=== PATIENT | male | born 1955 | race Caucasian/White ===

== ENCOUNTER → 2017-03-04 | Outpatient (CLI) | payer OTHER ==
[~2017-03-04] MED LIST: AGG PO; HYDR50TA3 PO; LISI40TA PO; OXYC-57 PO; PREG1CAP28 PO; PRLSR20 PO; SERT-234 PO; VALS320T PO
--- NOTE | 2017-03-04 10:13 | DIAGNOSTIC IMAGING REPORT ---
BILATERAL CAROTID DOPPLER STUDY HISTORY: Cerebral infarction. COMPARISON: None. TECHNIQUE: Real-time, grayscale, and color Doppler sonography of the carotid arteries was performed. Imaging reviewed in the transverse and longitudinal planes. All measurements were calculated based on NASCET criteria. FINDINGS: Antegrade flow is seen in the bilateral vertebral arteries. The brachial pressures are hemodynamically similar. No significant atherosclerotic plaque. The peak systolic velocity within the right ICA is 60 cm/s. The right systolic ratio is 1.2. The peak systolic velocity within the left ICA is 78 cm/s. The left systolic ratio is 1.5. IMPRESSION: No hemodynamically significant stenosis seen within the carotid arteries. Electronically signed by: Mack Walden M.D. 03/04/2017 10:12 AM Dictated Date/Time: 03/04/2017 10:07 AM
--- NOTE | 2017-03-09 13:26 | CODING QUERY MEDICAL NECESSITY ---
SUPPORTING DIAGNOSIS NEEDED A supporting diagnosis is required for the test/procedure performed on this patient in order for us to be reimbursed by the patient's insurance. Please provide a supporting diagnosis for the following test/procedure listed below next to the test name along with your signature. *If there is no additional diagnosis for this patient that would support the following test/procedure please document that below next to the test/procedure. Test(s)/Procedure(s) that require a supporting diagnosis: * US CAROTID DOPPLER NECK ARTERY DIAGNOSIS: Provider Signature: Date: Thank you Leilani Toth [employer] Information Management Once completed, please kindly fax back to [phone] For questions please call [phone]
== END | disposition home or self-care (01) ==
LOC: C.ULTR 09:28
PROVIDERS: ATTEND Physician Assistant
DX: I63.30 Cerebral infarction due to thrombosis of unspecified cerebral artery (principal)

== ENCOUNTER → 2017-07-08 | Outpatient (CLI) | payer OTHER ==
[~2017-07-08] VITALS: Ht 165.1 cm; Wt 233.8 kg
[2017-07-08 10:25] VITALS: BP 149/89; PULSE 60; Ht 165.1 cm; Wt 233.8 kg
== END | disposition home or self-care (01) ==
LOC: C.NEUR 09:52
PROVIDERS: ATTEND Internal Medicine Pulmonary Disease
DX: G47.33 Obstructive sleep apnea (adult) (pediatric) (principal)

== ENCOUNTER 2023-10-20 19:06 | Inpatient (IN) ==
--- NOTE | 2023-10-20 19:21 | Emergency Department Note ---
Impression & Plan Generalized weakness, Acute hypokalemia, Hypomagnesemia, Nausea & vomiting, Non-ST elevation [place] (NSTEMI) ED Provider Note HISTORY OF PRESENT ILLNESS: Patient is a 68-year-old male presenting with nausea and vomiting. reports that patient was last seen well at 10 PM on 10/19/2023. She reports that patient has been in bed all day vomiting and having episodes of diarrhea. She reports she went back into check on him this evening and he seemed to have a slight right-sided facial droop. However, she called 911 because of the facial droop and the patient's confusion and persistent symptoms. Patient reports generalized abdominal pain that started today. He had a fever of 101 earlier this afternoon and was given Tylenol by his . Patient denies any chest pain or shortness of breath. He is on a blood thinner for previous history of a stroke but they are unsure what the name of the blood thinner is. He started vomiting black-colored vomitus, per the reports he just tried to drink some Coca-Cola to help settle his stomach. Patient denies any history of surgeries on his abdomen. Currently locates the pain diffusely across his abdomen. ROS: as above PHYSICAL EXAM: Constitutional: Patient appears in no acute distress. HENT: Head: Normocephalic and atraumatic. Eyes: EOMI, PERRL Mouth/Throat: Mucous membranes dry. Neck: Trachea midline. Neck supple. Cardiovascular: Tachycardic with regular rhythm. No murmurs, rubs or gallops. Intact distal pulses. Pulmonary/Chest: No respiratory distress. Breath sounds clear and equal bilaterally. No wheezes or rales. Abdominal: Abdomen soft, no rebound or guarding. RUQ TTP Musculoskeletal: No edema, tenderness or deformity noted. Skin: Warm and dry. No rash, erythema, pallor or cyanosis Psychiatric: Appropriate mood and affect for situation. Neurological: Alert and keenly responsive. Facies symmetric. Able to raise eyebrows, close eyes, smile, puff mouth, stick out tongue, move tongue left and right and raise palate symmetrically. Able to shrug shoulders. PERRLA. SILT to forehead below eye and at jawline. Can hear soft noise bilaterally. Strength 5/5 in bilateral upper and lower extremities. SILT throughout bilateral upper and lower extremities. MDM: - Vitals signs showed tachycardia. - History obtained via patient. History as above. - Chronic conditions affecting care: AAA; CVA; HTN; GERD - Differential diagnoses include, but are not limited to: Viral syndrome; ACS; UTI; pneumonia; dehydration; electrolyte abnormality; peptic ulcer - Order placed for continuous cardiac monitoring. At this time, monitor showed rate of 95 bpm with normal sinus rhythm, per my interpretation. - External medical records reviewed. [facility] report dated was reviewed. Patient follows in their clinic for iron deficiency with weight loss and heme positive stool. - EKG interpreted by myself showed normal sinus rhythm. Rate 100 bpm. QT 384. Noted to have a bifascicular block. No acute ischemic changes. When compared to EKG from November 09, 2021, the patient did not have a bifascicular block at that time. - Laboratory workup interpreted by myself showed normal WBC; hypokalemia (K 2.5); elevated anion gap (17 - likely from volume loss); elevated BUN (37); CKD (Cr 1.69); hypomagnesemia (Mg 1.4); elevated total bilirubin (1.6); elevated troponin (42.2) - Patient given 20 mEq IV potassium for electrolyte replacement. Given 1g IV magnesium - CXR negative for pneumonia, per my interpretation - Given 1L NS, 4 mg IV zofran and 20 mg IV protonix. - Viral respiratory panel negative - CT head wo contrast negative for acute pathology - CT abdomen/pelvis with IV contrast showed moderately fluid distended stomach with fluid filling the small hiatal hernia and distal thoracic esophagus of unclear significance. No evidence of bowel obstruction. Noted to have a aneurysm of the abdominal aorta. - Repeat troponin elevated at 128.5 - Discussed case with yard hostler, Dr. Knott, at 22:55, given patient's new EKG changes and rising troponin. Patient is not having any symptoms of chest pain. He believes that the ST changes are more likely related to LVH but cannot be sure. He states the patient is not having any chest pain, would recommend trending troponin, repeating EKGs with any change in symptoms and repeating the echocardiogram in the emergency department. Recommend holding off on heparin at this time. - Patient not alerted as a stroke, as no appreciable strokelike symptoms on arrival. Also is outside of the window for TNK, given his last known well was yesterday evening - Discussion was had with case management coordinator about patient's case and need for admission - Hospitalist, Dr. Rosenberg, consulted for admission - [facility] ASSESSMENT AND PLAN: Diagnosis: Generalized weakness; nausea and vomiting; acute hypokalemia; hypomagnesemia; NSTEMI Plan: Admit Past Med/Surg History Problem List (Updated 10/20/23 @ 23:15 by Madelaine Hou MD) Non-ST elevation [place] (NSTEMI) (Acute) Nausea & vomiting (Acute) Hypomagnesemia (Acute) Acute hypokalemia (Acute) Generalized weakness (Acute) Microscopic hematuria Medical History AAA (abdominal aortic aneurysm) CVA (cerebral vascular accident) H/O: HTN (hypertension) GERD (gastroesophageal reflux disease) Surgical History No pertinent past surgical history Family History Other Family history non-contributory Social History Smoking Status: Never smoker Tobacco Type: Cigars Preferred Language: Romanian Feels Safe at Home: Yes Allergies Allergies Allergy/AdvReac Type Severity Reaction Status Date / Time No Known Allergies Allergy Verified 11/09/21 16:20 Home Meds Home Medications Medication Instructions Recorded Confirmed aspirin 25 mg-dipyridamole 200 mg 1 cap PO BID 01/05/20 11/09/21 capsule,ext.release 12 hr multiphase escitalopram oxalate 10 mg tablet 15 mg PO DAILY 01/05/20 11/09/21 hydrochlorothiazide 50 mg tablet 50 mg PO DAILY 01/05/20 11/09/21 hydrocodone 10 mg-acetaminophen 1 tab PO QID PRN Pain 01/05/20 11/09/21 325 mg tablet omeprazole 20 mg capsule,delayed 20 mg PO BID 01/05/20 11/09/21 release potassium chloride 10 mEq 10 meq PO DAILY 01/05/20 11/09/21 tablet,extended release ropinirole 2 mg tablet 2 mg PO DAILY 01/05/20 11/09/21 rosuvastatin 40 mg tablet 40 mg PO DAILY 01/05/20 11/09/21 valsartan 320 mg tablet 320 mg PO DAILY 01/05/20 11/09/21 testosterone cypionate 200 mg/mL 200 mg IM WK 11/09/21 11/09/21 intramuscular oil Previous Rx's Medication Instructions Recorded cephalexin 500 mg capsule 500 mg PO BID 7 days #14 caps 07/09/23 Results & Data (ED) Vital Signs Vital Signs - 24 hr 10/20/23 19:12 10/20/23 19:20 10/20/23 21:45 Temperature 37.2 C Temperature Source Oral Pulse Rate 105 H 104 H Pulse Rate [Apical] 100 H Pulse Rhythm [Apical] Regular Pulse Strength [Apical] Normal Respiratory Rate 18 20 Respiratory Effort / Characteristics Non-Labored Non-Labored Respiratory Depth Normal Normal Respiratory Pattern Regular Regular Blood Pressure 105/73 Blood Pressure [Right Arm] 133/84 Blood Pressure Mean 83 Blood Pressure Mean [Right Arm] 100 Blood Pressure Position Lying Blood Pressure Position [Right Arm] Lying Pulse Oximetry 93 96 Oxygen Delivery Method Room Air Room Air Sepsis Recent Fever Within 48 Hours Yes Sepsis New/Unexplained Change in Mental Status No Sepsis Action Taken by Nursing No Action Required 10/20/23 22:00 10/20/23 23:06 Temperature Temperature Source Pulse Rate 95 H Pulse Rate [Apical] 98 H Pulse Rhythm [Apical] Regular Pulse Strength [Apical] Normal Respiratory Rate 22 Respiratory Effort / Characteristics Non-Labored Respiratory Depth Normal Respiratory Pattern Regular Blood Pressure Blood Pressure [Right Arm] 108/61 Blood Pressure Mean Blood Pressure Mean [Right Arm] 76 Blood Pressure Position Blood Pressure Position [Right Arm] Lying Pulse Oximetry 94 Oxygen Delivery Method Room Air Sepsis Recent Fever Within 48 Hours Sepsis New/Unexplained Change in Mental Status Sepsis Action Taken by Nursing Laboratory Data 10/20/23 19:00 10/20/23 19:00 Lab Results 10/20/23 10/20/23 10/20/23 Range/Units 19:00 19:20 21:42 WBC 5.78 (4.8-10.8) K/ul RBC 5.56 (4.70-6.10) M/uL Hgb 16.5 (14.0-18.0) g/dl Hct 46.3 (42.0-52.0) % MCV 83.3 (80.0-100.0) fL MCH 29.7 (25.0-34.0) pg MCHC 35.6 (32.0-36.0) g/dL RDW Std Deviation 39.9 (36.4-46.3) fL RDW Coeff of Zander 13.2 (11.5-14.5) % Plt Count 124 L (130-400) K/uL MPV 9.5 (9.4-12.4) fL Immature Gran % (Auto) 0.2 % Neut % (Auto) 85.4 % Lymph % (Auto) 8.3 % [place] % (Auto) 5.2 % Eos % (Auto) 0.2 % Baso % (Auto) 0.7 % Neut # (Auto) 4.94 (1.40-6.50) K/uL Lymph # (Auto) 0.48 L (1.20-3.40) K/uL [place] # (Auto) 0.30 (0.11-0.59) K/uL Eos # (Auto) 0.01 (0.00-0.50) K/uL Baso # (Auto) 0.04 (0.00-0.20) K/uL Immature Gran # (Auto) 0.01 (0.01-0.20) K/uL PT 11.9 (9.0-12.0) Seconds INR 1.1 (0.9-1.1) Sodium 138 (136-145) mmol/L Potassium 2.5 L* (3.5-5.1) mmol/L Chloride 105 (98-107) mmol/L Carbon Dioxide 16 L (21-32) mmol/L Anion Gap 17 H (3-11) BUN 37 H (6-23) mg/dl Creatinine 1.69 H (0.6-1.4) mg/dl Est Cr Clr Drug Dosing Not Reportable Est GFR ( Amer) 47.0 ml/min Est GFR (Non-Af Amer) 40.5 ml/min BUN/Creatinine Ratio 21.9 H (10-20) Glucose 161 H (70-99(Fasting)) mg/dl Calcium 9.9 (8.6-10.3) mg/dl Magnesium 1.4 L (1.7-2.4) mg/dl Total Bilirubin 1.6 H (0.2-1.0) mg/dl AST 18 (13-39) U/L ALT 15 (7-52) U/L Alkaline Phosphatase 68 (34-104) U/L Troponin I High Sens 42.2 H 128.5 H* D (0-20) pg/ml Total Protein 8.0 (6.0-8.3) gm/dl Albumin 4.8 (3.4-5.0) gm/dl Globulin 3.2 (2.5-4.0) gm/dl Albumin/Globulin Ratio 1.5 (0.9-2) Adenovirus (PCR) Not Detected (NotDetected) B. pertussis DNA (PCR) Not Detected (NotDetected) B.parapertussis DNA PCR Not Detected (NotDetected) C. pneumoniae DNA (PCR) Not Detected (NotDetected) Coronavirus OC43 (PCR) Not Detected (NotDetected) Coronavirus HKU1 (PCR) Not Detected (NotDetected) Coronavirus 229E (PCR) Not Detected (NotDetected) SARS-CoV-2 (PCR) Not Detected (NotDetected) Coronavirus NL63 (PCR) Not Detected (NotDetected) Human Metapneumovir PCR Not Detected (NotDetected) Influenza Type A (PCR) Not Detected (NotDetected) Influenza Type B (PCR) Not Detected (NotDetected) M. pneumoniae (PCR) Not Detected (NotDetected) Parainfluenza 1 (PCR) Not Detected (NotDetected) Parainfluenza 2 (PCR) Not Detected (NotDetected) Parainfluenza 3 (PCR) Not Detected (NotDetected) Parainfluenza 4 (PCR) Not Detected (NotDetected) RSV (PCR) Not Detected (NotDetected) Entero/Rhino (PCR) Not Detected (NotDetected) Administered Medications Discontinued Medications Pantoprazole Sodium 40 mg/ (Syringe) 10 mls @ 5 mls/min IV NOW ONE Stop: 10/20/23 19:18 Last Admin: 10/20/23 19:50 Dose: 5 mls/min Documented By: MARLENI Sodium Chloride (Nss) 1,000 mls @ 999 mls/hr IV .Q1H1M ONE Stop: 10/20/23 20:17 Last Infusion: 10/20/23 20:40 Dose: Infused Documented By: Admin: 10/20/23 19:33 Dose: 999 mls/hr Documented By: MARLENI Potassium Chloride (K Daniel / Wtr) 10 meq in 100 mls @ 100 mls/hr IV Q1H DIMPLE Stop: 10/20/23 22:14 Last Admin: 10/20/23 21:54 Dose: 100 mls/hr Documented By: Infusion: 10/20/23 21:36 Dose: Infused Documented By: Admin: 10/20/23 20:36 Dose: 100 mls/hr Documented By: MARLENI Magnesium Sulfate/Dextrose (Magnesium Sulfate / D5w) 1 gm in 100 mls @ 100 mls/hr IV NOW STA Stop: 10/20/23 21:06 Last Infusion: 10/20/23 21:46 Dose: Infused Documented By: Admin: 10/20/23 20:37 Dose: 100 mls/hr Documented By: MARLENI Ioversol (Optiray 320 100ml) 91 ml IV ONCE ONE Stop: 10/20/23 21:07 Last Admin: 10/20/23 21:06 Dose: 91 ml Documented By: NAVNEET Ondansetron HCl (Ondansetron Inj 2 Mg/Ml 2 Ml Vial) 4 mg IV NOW STA Stop: 10/20/23 19:18 Last Admin: 10/20/23 19:33 Dose: 4 mg Documented By: Imaging Data Radiologist's Impression: Abdomen/Pelvis CT 10/20/23 19:17 Exam(s): CT ABDOMEN + PELVIS With Contrast IV Amt: 91 ml opti 320 EXAM: CT Abdomen and Pelvis With Intravenous Contrast CLINICAL HISTORY: RUQ abd pain; vomiting coffee ground emesis. TECHNIQUE: Axial computed tomography images of the abdomen and pelvis with intravenous contrast. CTDI is 24.52 mGy and DLP is 1289.61 mGy-cm. Automated exposure control was utilized for the study. A dose lowering technique was utilized adhering to the principles of ALARA. CONTRAST: Patient received 91 ml opti 320 of IV contrast COMPARISON: CT abdomen and pelvis without contrast dated 07/26/2023 FINDINGS: Lung bases: Unremarkable. No mass. No consolidation. Mediastinum: As below. ABDOMEN: Liver: Unremarkable. No mass. Gallbladder and bile ducts: Unremarkable. No calcified stones. No ductal dilation. Pancreas: Unremarkable. No mass. No ductal dilation. Spleen: Unremarkable. No splenomegaly. Adrenals: Unremarkable. No mass. Kidneys and ureters: Unremarkable. No solid mass. No hydronephrosis. Stomach and bowel: Stomach is moderately distended with fluid and minimal retained oral contents. No gastric mucosal thickening noted. There is retrograde moderate fluid distention of a hiatal hernia and the distal thoracic esophagus without esophageal mucosal thickening. Fluid distended small bowel loops throughout the abdomen and pelvis without dilation. No significant asymmetric bowel mucosal abnormality. There is prominent fluid throughout the colon without evidence for mucosal thickening or diverticulitis. PELVIS: Appendix: A normal caliber appendix extends inferiorly from the cecum in the right lower quadrant. Bladder: Unremarkable. No mass. Reproductive: Unremarkable as visualized. ABDOMEN and PELVIS: Intraperitoneal space: Unremarkable. No free air. No significant fluid collection. Bones/joints: No acute fracture. No dislocation. Soft tissues: Unremarkable. Vasculature: Atherosclerotic calcification of the aorta with fusiform aneurysm and tortuosity of the distal infrarenal aorta, measuring up to 5 cm in AP diameter on sagittal reformatted imaging from 4.8 cm previously. The transverse diameter is relatively stable at 4 cm. There is similar eccentric atheromatous plaque noted posteriorly. No dissection or acute periaortic abnormality. The aneurysm extends to the iliac bifurcation but does not involve the iliac bifurcations. Lymph nodes: Unremarkable. No enlarged lymph nodes. IMPRESSION: 1. Moderate fluid distention of the stomach with retrograde fluid filling the small hiatal hernia and distal thoracic esophagus. No asymmetric mucosal thickening. The clinical significance of this finding is indeterminant. 2. No evidence for bowel obstruction with prominent fluid throughout the small bowel and throughout the colon without focal asymmetric mucosal thickening or diverticulitis. Findings are most consistent with enterocolitis and diarrheal disease. No free intraperitoneal fluid or pneumoperitoneum. 3. 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 The transverse diameter is relatively stable at 4 cm. There is similar eccentric atheromatous plaque noted posteriorly. No dissection or acute periaortic abnormality. The aneurysm extends to the iliac bifurcation but does not involve the iliac bifurcations. Continued routine surveillance recommended. Electronically signed by: Gerardo Ashford MD 10/20/23 21:[address] 10/20/23 19:17 Exam(s): CT HEAD Without Contrast EXAM: CT Head Without Intravenous Contrast CLINICAL HISTORY: confusion. TECHNIQUE: Axial computed tomography images of the head/brain without intravenous contrast. CTDI is 36.79 mGy and DLP is 625.8 mGy-cm. Automated exposure control was utilized for the study. A dose lowering technique was utilized adhering to the principles of ALARA. COMPARISON: CT head without contrast dated 11/09/2021 FINDINGS: Brain: Unremarkable. No hemorrhage. No significant white matter disease. No edema. Ventricles: Unremarkable. No ventriculomegaly. Bones/joints: Unremarkable. No acute fracture. Soft tissues: No significant overlying acute traumatic soft tissue abnormality. No radiopaque foreign body. Sinuses: Unremarkable as visualized. No acute sinusitis. Mastoid air cells: Unremarkable as visualized. No mastoid effusion. IMPRESSION: No acute intracranial process or significant alteration from the prior examination. Electronically signed by: Gerardo Ashford MD 10/20/23 21:27 PM Discharge Plan Visit Data Chief Complaint: Illness Stated Complaint: VOMITING, COUGH, FEELS LIKE FACE IS DROOPING MORE ED Provider: Madelaine Hou Discharge Problem: Generalized weakness, Acute hypokalemia, Hypomagnesemia, Nausea & vomiting, Non-ST elevation [place] (NSTEMI) Forms Stand Alone Forms: My [facility] [employer] Prescriptions Prescriptions: No Action cephalexin 500 mg capsule 500 mg PO BID 7 Days Qty: 14 0RF aspirin-dipyridamole 25-200 mg capsule, ER multiphase 12 hr 1 cap PO BID hydrochlorothiazide 50 mg tablet 50 mg PO DAILY potassium chloride 10 mEq tablet extended release 10 meq PO DAILY hydrocodone-acetaminophen 10-325 mg tablet 1 tab PO QID PRN (Reason: Pain) ropinirole 2 mg tablet 2 mg PO DAILY valsartan 320 mg tablet 320 mg PO DAILY omeprazole 20 mg capsule,delayed release(DR/EC) 20 mg PO BID escitalopram oxalate 10 mg tablet 15 mg PO DAILY rosuvastatin 40 mg tablet 40 mg PO DAILY testosterone cypionate 200 mg/mL oil 200 mg IM WK Referrals Referrals: Adan Siegel, [facility] [Primary Care Provider] -
[2023-10-20] MEDS: ONDANSETRON INJ 2 MG/ML 2 ML VIAL IV STA (19:33)
[2023-10-20] MEDS: SODIUM CHLORIDE 0.9% 1,000 ML IV ONE (19:33)
[2023-10-20 19:44] LABS: Basophils # (auto) 0.04 K/uL (0.00-0.20); Basophils % (auto) 0.7 %; Eosinophils # (auto) 0.01 K/uL (0.00-0.50); Eosinophils % (auto) 0.2 %; Hematocrit (blood only) 46.3 % (42.0-52.0); Hemoglobin 16.5 g/dl (14.0-18.0); Immature Granulocytes # (auto) 0.01 K/uL (0.01-0.20); Immature Granulocytes % (auto) 0.2 %; Lymphocytes # (auto) 0.48 K/uL (1.20-3.40); Lymphocytes % (auto) 8.3 %; Mean Corpuscular Hemoglobin 29.7 pg (25.0-34.0); Mean Corpuscular Hgb Conc 35.6 g/dL (32.0-36.0); Mean Corpuscular Volume 83.3 fL (80.0-100.0); Mean Platelet Volume 9.5 fL (9.4-12.4); Monocytes % (auto) 5.2 %; Neutrophils # (auto) 4.94 K/uL (1.40-6.50); Neutrophils % (auto) 85.4 %; Platelet Count 124 K/uL (130-400); RDW Coefficient of Variation 13.2 % (11.5-14.5); RDW Standard Deviation 39.9 fL (36.4-46.3); Red Blood Count 5.56 M/uL (4.70-6.10); White Blood Count 5.78 K/ul (4.8-10.8)
[2023-10-20] MEDS: PANTOprazole 40 MG in SYRINGE 0 ML IV ONE (19:50)
[2023-10-20 20:04] LABS: Alanine Aminotransferase 15 U/L (7-52); Albumin Globulin Ratio 1.5 (0.9-2); Albumin Level 4.8 gm/dl (3.4-5.0); Alkaline Phosphatase 68 U/L (34-104); Anion Gap 17 (3-11); Aspartate Aminotransferase 18 U/L (13-39); BUN Creatinine Ratio 21.9 (10-20); Bilirubin,Total 1.6 mg/dl (0.2-1.0); Blood Urea Nitrogen 37 mg/dl (6-23); Calcium 9.9 mg/dl (8.6-10.3); Carbon Dioxide 16 mmol/L (21-32); Chloride 105 mmol/L (98-107); Est GFR (Non-African American) 40.5 ml/min; Globulin 3.2 gm/dl (2.5-4.0); Glucose 161 mg/dl (70-99(Fasting)); Magnesium 1.4 mg/dl (1.7-2.4); Potassium 2.5 mmol/L (3.5-5.1); Sodium 138 mmol/L (136-145)
[2023-10-20 20:07] LABS: Troponin I High Sensitivity 42.2 pg/ml (0-20)
[2023-10-20 20:15] LABS: INR 1.1 (0.9-1.1); Prothrombin Time 11.9 Seconds (9.0-12.0)
[2023-10-20 20:35] LABS: Adenovirus PCR Not Detected (NotDetected); Bordetella parapertussis PCR Not Detected (NotDetected); Bordetella pertussis PCR Not Detected (NotDetected); Chlamydia pneumoniae PCR Not Detected (NotDetected); Coronavirus 229E PCR Not Detected (NotDetected); Coronavirus CoV-2 (COVID19)PCR Not Detected (NotDetected); Coronavirus HKU1 PCR Not Detected (NotDetected); Coronavirus NL63 PCR Not Detected (NotDetected); Coronavirus OC43PCR Not Detected (NotDetected); Human Metapneumovirus PCR Not Detected (NotDetected); Influenza A PCR Not Detected (NotDetected); Influenza B PCR Not Detected (NotDetected); Mycoplasma pneumoniae PCR Not Detected (NotDetected); Parainfluenza Virus 1 PCR Not Detected (NotDetected); Parainfluenza Virus 2 PCR Not Detected (NotDetected); Parainfluenza Virus 3 PCR Not Detected (NotDetected); Parainfluenza Virus 4 PCR Not Detected (NotDetected); Respiratory Syncytial VirusPCR Not Detected (NotDetected); Rhinovirus/Enterovirus PCR Not Detected (NotDetected)
[2023-10-20] MEDS: POTASSIUM CHLORIDE / WTR 10 MEQ/100 ML PLCT IV SCH (20:36)
[2023-10-20] MEDS: MAGNESIUM SULFATE / D5W 1 GM/100 ML BAG IV STA (20:37)
[2023-10-20] MEDS: OPTIRAY 320 100ml IV ONE (21:06)
--- NOTE | 2023-10-20 21:28 | CT Scan Report ---
Exam(s): CT HEAD Without Contrast EXAM: CT Head Without Intravenous Contrast CLINICAL HISTORY: confusion. TECHNIQUE: Axial computed tomography images of the head/brain without intravenous contrast. CTDI is 36.79 mGy and DLP is 625.8 mGy-cm. Automated exposure control was utilized for the study. A dose lowering technique was utilized adhering to the principles of ALARA. COMPARISON: CT head without contrast dated 11/09/2021 FINDINGS: Brain: Unremarkable. No hemorrhage. No significant white matter disease. No edema. Ventricles: Unremarkable. No ventriculomegaly. Bones/joints: Unremarkable. No acute fracture. Soft tissues: No significant overlying acute traumatic soft tissue abnormality. No radiopaque foreign body. Sinuses: Unremarkable as visualized. No acute sinusitis. Mastoid air cells: Unremarkable as visualized. No mastoid effusion. IMPRESSION: No acute intracranial process or significant alteration from the prior examination. Electronically signed by: Gerardo Ashford MD 10/20/23 21:27 PM
--- NOTE | 2023-10-20 21:34 | CT Scan Report ---
Exam(s): CT ABDOMEN + PELVIS With Contrast IV Amt: 91 ml opti 320 EXAM: CT Abdomen and Pelvis With Intravenous Contrast CLINICAL HISTORY: RUQ abd pain; vomiting coffee ground emesis. TECHNIQUE: Axial computed tomography images of the abdomen and pelvis with intravenous contrast. CTDI is 24.52 mGy and DLP is 1289.61 mGy-cm. Automated exposure control was utilized for the study. A dose lowering technique was utilized adhering to the principles of ALARA. CONTRAST: Patient received 91 ml opti 320 of IV contrast COMPARISON: CT abdomen and pelvis without contrast dated 07/26/2023 FINDINGS: Lung bases: Unremarkable. No mass. No consolidation. Mediastinum: As below. ABDOMEN: Liver: Unremarkable. No mass. Gallbladder and bile ducts: Unremarkable. No calcified stones. No ductal dilation. Pancreas: Unremarkable. No mass. No ductal dilation. Spleen: Unremarkable. No splenomegaly. Adrenals: Unremarkable. No mass. Kidneys and ureters: Unremarkable. No solid mass. No hydronephrosis. Stomach and bowel: Stomach is moderately distended with fluid and minimal retained oral contents. No gastric mucosal thickening noted. There is retrograde moderate fluid distention of a hiatal hernia and the distal thoracic esophagus without esophageal mucosal thickening. Fluid distended small bowel loops throughout the abdomen and pelvis without dilation. No significant asymmetric bowel mucosal abnormality. There is prominent fluid throughout the colon without evidence for mucosal thickening or diverticulitis. PELVIS: Appendix: A normal caliber appendix extends inferiorly from the cecum in the right lower quadrant. Bladder: Unremarkable. No mass. Reproductive: Unremarkable as visualized. ABDOMEN and PELVIS: Intraperitoneal space: Unremarkable. No free air. No significant fluid collection. Bones/joints: No acute fracture. No dislocation. Soft tissues: Unremarkable. Vasculature: Atherosclerotic calcification of the aorta with fusiform aneurysm and tortuosity of the distal infrarenal aorta, measuring up to 5 cm in AP diameter on sagittal reformatted imaging from 4.8 cm previously. The transverse diameter is relatively stable at 4 cm. There is similar eccentric atheromatous plaque noted posteriorly. No dissection or acute periaortic abnormality. The aneurysm extends to the iliac bifurcation but does not involve the iliac bifurcations. Lymph nodes: Unremarkable. No enlarged lymph nodes. IMPRESSION: 1. Moderate fluid distention of the stomach with retrograde fluid filling the small hiatal hernia and distal thoracic esophagus. No asymmetric mucosal thickening. The clinical significance of this finding is indeterminant. 2. No evidence for bowel obstruction with prominent fluid throughout the small bowel and throughout the colon without focal asymmetric mucosal thickening or diverticulitis. Findings are most consistent with enterocolitis and diarrheal disease. No free intraperitoneal fluid or pneumoperitoneum. 3. 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 The transverse diameter is relatively stable at 4 cm. There is similar eccentric atheromatous plaque noted posteriorly. No dissection or acute periaortic abnormality. The aneurysm extends to the iliac bifurcation but does not involve the iliac bifurcations. Continued routine surveillance recommended. Electronically signed by: Gerardo Ashford MD 10/20/23 21:33 PM
--- NOTE | 2023-10-20 23:43 | History & Physical Report ---
Date of Service October 20, 2023 Assessment & Plan (1) UGIB (upper gastrointestinal bleed): Plan: History GERD History antiplatelet Rx for CVA and PVD BP on the lower side Hemoglobin currently stable Diarrhea rule out infectious causes Aspiration pneumonitis ARF on CRI secondary to illness Troponin elevation secondary to illness in the setting of kidney dysfunction hyperlipidemia, on statin Rx MEET as per records, outpatient testing contemplated chronic thrombocytopenia Hypokalemia, hypomagnesemia secondary to illness Prediabetes past tobacco abuse Admit to medical telemetry IV PPI Hold antiplatelet Rx for now Follow H&H, transfuse PRBC to maintain hemoglobin of at least 8 GI consult re: GI bleed N.p.o. and anticipation of endoscopy Stool Cx, stool C. difficile Unasyn followed by Augmentin for aspiration pneumonitis [employer] eval, aspiration precautions Based on UA, monitor creatinine response to IVF, hold home diuretic and ARB until creatinine back to baseline Replace electrolytes Check hemoglobin A1c DVT prophylaxis. SCDs re: GI bleed DNR Patient requesting updates providers. Ms. Ivan Shah, contact #[phone]. Text document was generated using [employer] voice recognition software. It may contain grammatical or spelling errors. Kindly contact undersigned for clarification of any documentation item in question. ADDENDUM : (10/20) Made aware by RN of stool positive for EPEC. Azithromycin course given patient toxicity and GI bleed. History of Present Illness Chief Complaint: Coffee ground emesis, diarrhea, vomiting, SOB Primary Care Provider: Adan Siegel History obtained from patient, family, and records. Medical history significant for CVA, AAA, hypertension, hyperlipidemia, MEET as per records, GERD, CRI (baseline creatinine 1.4 ), chronic thrombocytopenia, RLS, borderline diabetes as per patient, past tobacco abuse. 1 day history of achy central abdominal pain associated with coffee-ground emesis and diarrhea with melanotic stools as per patient. Junky cough symptoms with some SOB. No chest pain. Not sure about sick contacts, no recent antibiotics. Admits to episodic cough symptoms with food/water intake. Usual right facial droop from old stroke as per . Patient brought to ER for evaluation. IV Protonix administered at the ER. Medical History as above Surgical History : Carpal tunnel surgery, hernia repair Family History : Heart disease, DM Personal/Social history : Past tobacco abuse, no EtOH intake Allergies Allergy/AdvReac Type Severity Reaction Status Date / Time No Known Allergies Allergy Verified 10/20/23 23:51 Home Medications Medication Instructions Recorded Confirmed Type hydrochlorothiazide 50 mg tablet 50 mg PO QAM 01/05/20 10/20/23 History hydrocodone 10 mg-acetaminophen 1 tab PO QID PRN Pain 01/05/20 10/20/23 History 325 mg tablet rosuvastatin 40 mg tablet 40 mg PO DAILY 01/05/20 10/20/23 History valsartan 320 mg tablet 320 mg PO QAM 01/05/20 10/20/23 History amlodipine 5 mg tablet 5 mg PO QAM 10/20/23 10/20/23 History omeprazole 40 mg capsule,delayed 40 mg PO QAM 10/20/23 10/20/23 History release potassium chloride 20 mEq 20 meq PO QAM 10/20/23 10/20/23 History tablet,extended release(part/cryst) ropinirole 2 mg tablet 2 mg PO TID 10/20/23 10/20/23 History sertraline 50 mg tablet 50 mg PO HS 10/20/23 10/20/23 History spironolactone 25 mg tablet 25 mg PO QAM 10/20/23 10/20/23 History Past Med/Surg History Problem List (Updated 10/21/23 @ 10:08 by OSKAR Yuen) UGIB (upper gastrointestinal bleed) Non-ST elevation NH (NSTEMI) (Acute) Nausea & vomiting (Acute) Hypomagnesemia (Acute) Acute hypokalemia (Acute) Generalized weakness (Acute) Microscopic hematuria Medical History AAA (abdominal aortic aneurysm) CVA (cerebral vascular accident) H/O: HTN (hypertension) GERD (gastroesophageal reflux disease) Surgical History No pertinent past surgical history Family History Other Family history non-contributory Social History Smoking Status: Never smoker Tobacco Type: Cigars Second Hand Exposure: No; Do You Dip or Chew Tobacco: No; Hx Alcohol Use: No Hx Substance Use: No Preferred Language: Belarusian Compliance Officer Required: No Beliefs That Will Affect Care: None Current Living Situation: Spouse Other Information That Helps Us Care for You: No Feels Safe at Home: Yes Safety Concerns: Feels Safe At This Time Assistive Devices: None Review of Systems Review of Systems: As per HPI, all other systems reviewed and negative Physical Exam Physical Exam: GENERAL: uncomfortable, no respiratory distress SKIN: Pallor, warm HEENT: Alopecia, pale palpebral conjunctivae, no ptosis, dry buccal mucosa, dried coffee-ground emesis per orem NECK : Supple, no tenderness CHEST : Decreased breath sounds, expiratory wheezes, no tenderness HEART : RRR, no obvious murmurs ABDOMEN: Epigastric tenderness, nontender EXTREMITIES : No LE swelling/tenderness, no other conspicuous deformities noted NEUROLOGIC : Coherent, no facial asymmetry, gait and stance not assessed Results & Data Results & Data Vital Signs (Past 12 Hours) Vital Signs Temp Pulse Pulse Resp BP BP Pulse Ox 10/20/23 23:06 95 H 10/20/23 22:00 98 H 22 108/61 94 10/20/23 21:45 100 H 20 133/84 96 10/20/23 19:20 37.2 C 104 H 18 105/73 93 10/20/23 19:12 105 H O2 Del Method 10/20/23 23:06 10/20/23 22:00 Room Air 10/20/23 21:45 Room Air 10/20/23 19:20 Room Air 10/20/23 19:12 Laboratory Results Laboratory Results WBC 5.78 K/ul (4.8-10.8) 10/20/23 19:00 RBC 5.56 M/uL (4.70-6.10) 10/20/23 19:00 Hgb 16.5 g/dl (14.0-18.0) 10/20/23 19:00 Hct 46.3 % (42.0-52.0) 10/20/23 19:00 MCV 83.3 fL (80.0-100.0) 10/20/23 19:00 MCH 29.7 pg (25.0-34.0) 10/20/23 19:00 MCHC 35.6 g/dL (32.0-36.0) 10/20/23 19:00 RDW Std Deviation 39.9 fL (36.4-46.3) 10/20/23 19:00 RDW Coeff of Zander 13.2 % (11.5-14.5) 10/20/23 19:00 Plt Count 124 K/uL (130-400) L 10/20/23 19:00 MPV 9.5 fL (9.4-12.4) 10/20/23 19:00 Immature Gran % (Auto) 0.2 % 10/20/23 19:00 Neut % (Auto) 85.4 % 10/20/23 19:00 Lymph % (Auto) 8.3 % 10/20/23 19:00 Thurston % (Auto) 5.2 % 10/20/23 19:00 Eos % (Auto) 0.2 % 10/20/23 19:00 Baso % (Auto) 0.7 % 10/20/23 19:00 Neut # (Auto) 4.94 K/uL (1.40-6.50) 10/20/23 19:00 Lymph # (Auto) 0.48 K/uL (1.20-3.40) L 10/20/23 19:00 Thurston # (Auto) 0.30 K/uL (0.11-0.59) 10/20/23 19:00 Eos # (Auto) 0.01 K/uL (0.00-0.50) 10/20/23 19:00 Baso # (Auto) 0.04 K/uL (0.00-0.20) 10/20/23 19:00 Immature Gran # (Auto) 0.01 K/uL (0.01-0.20) 10/20/23 19:00 PT 11.9 Seconds (9.0-12.0) 10/20/23 19:00 INR 1.1 (0.9-1.1) 10/20/23 19:00 Sodium 138 mmol/L (136-145) 10/20/23 19:00 Potassium 2.5 mmol/L (3.5-5.1) L* 10/20/23 19:00 Chloride 105 mmol/L (98-107) 10/20/23 19:00 Carbon Dioxide 16 mmol/L (21-32) L 10/20/23 19:00 Anion Gap 17 (3-11) H 10/20/23 19:00 BUN 37 mg/dl (6-23) H 10/20/23 19:00 Creatinine 1.69 mg/dl (0.6-1.4) H 10/20/23 19:00 Est Cr Clr Drug Dosing Not Reportable 10/20/23 19:00 Est GFR ( Amer) 47.0 ml/min 10/20/23 19:00 Est GFR (Non-Af Amer) 40.5 ml/min 10/20/23 19:00 BUN/Creatinine Ratio 21.9 (10-20) H 10/20/23 19:00 Glucose 161 mg/dl (70-99(Fasting)) H 10/20/23 19:00 Calcium 9.9 mg/dl (8.6-10.3) 10/20/23 19:00 Magnesium 1.4 mg/dl (1.7-2.4) L 10/20/23 19:00 Total Bilirubin 1.6 mg/dl (0.2-1.0) H 10/20/23 19:00 AST 18 U/L (13-39) 10/20/23 19:00 ALT 15 U/L (7-52) 10/20/23 19:00 Alkaline Phosphatase 68 U/L (34-104) 10/20/23 19:00 Troponin I High Sens 128.5 pg/ml (0-20) H* D 10/20/23 21:42 Total Protein 8.0 gm/dl (6.0-8.3) 10/20/23 19:00 Albumin 4.8 gm/dl (3.4-5.0) 10/20/23 19:00 Globulin 3.2 gm/dl (2.5-4.0) 10/20/23 19:00 Albumin/Globulin Ratio 1.5 (0.9-2) 10/20/23 19:00 Adenovirus (PCR) Not Detected (NotDetected) 10/20/23 19:20 B. pertussis DNA (PCR) Not Detected (NotDetected) 10/20/23 19:20 B.parapertussis DNA PCR Not Detected (NotDetected) 10/20/23 19:20 C. pneumoniae DNA (PCR) Not Detected (NotDetected) 10/20/23 19:20 Coronavirus OC43 (PCR) Not Detected (NotDetected) 10/20/23 19:20 Coronavirus HKU1 (PCR) Not Detected (NotDetected) 10/20/23 19:20 Coronavirus 229E (PCR) Not Detected (NotDetected) 10/20/23 19:20 SARS-CoV-2 (PCR) Not Detected (NotDetected) 10/20/23 19:20 Coronavirus NL63 (PCR) Not Detected (NotDetected) 10/20/23 19:20 Human Metapneumovir PCR Not Detected (NotDetected) 10/20/23 19:20 Influenza Type A (PCR) Not Detected (NotDetected) 10/20/23 19:20 Influenza Type B (PCR) Not Detected (NotDetected) 10/20/23 19:20 M. pneumoniae (PCR) Not Detected (NotDetected) 10/20/23 19:20 Parainfluenza 1 (PCR) Not Detected (NotDetected) 10/20/23 19:20 Parainfluenza 2 (PCR) Not Detected (NotDetected) 10/20/23 19:20 Parainfluenza 3 (PCR) Not Detected (NotDetected) 10/20/23 19:20 Parainfluenza 4 (PCR) Not Detected (NotDetected) 10/20/23 19:20 RSV (PCR) Not Detected (NotDetected) 10/20/23 19:20 Entero/Rhino (PCR) Not Detected (NotDetected) 10/20/23 19:20 Impressions Abdomen/Pelvis CT 10/20/23 19:17 Exam(s): CT ABDOMEN + PELVIS With Contrast IV Amt: 91 ml opti 320 EXAM: CT Abdomen and Pelvis With Intravenous Contrast CLINICAL HISTORY: RUQ abd pain; vomiting coffee ground emesis. TECHNIQUE: Axial computed tomography images of the abdomen and pelvis with intravenous contrast. CTDI is 24.52 mGy and DLP is 1289.61 mGy-cm. Automated exposure control was utilized for the study. A dose lowering technique was utilized adhering to the principles of ALARA. CONTRAST: Patient received 91 ml opti 320 of IV contrast COMPARISON: CT abdomen and pelvis without contrast dated 07/26/2023 FINDINGS: Lung bases: Unremarkable. No mass. No consolidation. Mediastinum: As below. ABDOMEN: Liver: Unremarkable. No mass. Gallbladder and bile ducts: Unremarkable. No calcified stones. No ductal dilation. Pancreas: Unremarkable. No mass. No ductal dilation. Spleen: Unremarkable. No splenomegaly. Adrenals: Unremarkable. No mass. Kidneys and ureters: Unremarkable. No solid mass. No hydronephrosis. Stomach and bowel: Stomach is moderately distended with fluid and minimal retained oral contents. No gastric mucosal thickening noted. There is retrograde moderate fluid distention of a hiatal hernia and the distal thoracic esophagus without esophageal mucosal thickening. Fluid distended small bowel loops throughout the abdomen and pelvis without dilation. No significant asymmetric bowel mucosal abnormality. There is prominent fluid throughout the colon without evidence for mucosal thickening or diverticulitis. PELVIS: Appendix: A normal caliber appendix extends inferiorly from the cecum in the right lower quadrant. Bladder: Unremarkable. No mass. Reproductive: Unremarkable as visualized. ABDOMEN and PELVIS: Intraperitoneal space: Unremarkable. No free air. No significant fluid collection. Bones/joints: No acute fracture. No dislocation. Soft tissues: Unremarkable. Vasculature: Atherosclerotic calcification of the aorta with fusiform aneurysm and tortuosity of the distal infrarenal aorta, measuring up to 5 cm in AP diameter on sagittal reformatted imaging from 4.8 cm previously. The transverse diameter is relatively stable at 4 cm. There is similar eccentric atheromatous plaque noted posteriorly. No dissection or acute periaortic abnormality. The aneurysm extends to the iliac bifurcation but does not involve the iliac bifurcations. Lymph nodes: Unremarkable. No enlarged lymph nodes. IMPRESSION: 1. Moderate fluid distention of the stomach with retrograde fluid filling the small hiatal hernia and distal thoracic esophagus. No asymmetric mucosal thickening. The clinical significance of this finding is indeterminant. 2. No evidence for bowel obstruction with prominent fluid throughout the small bowel and throughout the colon without focal asymmetric mucosal thickening or diverticulitis. Findings are most consistent with enterocolitis and diarrheal disease. No free intraperitoneal fluid or pneumoperitoneum. 3. 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 The transverse diameter is relatively stable at 4 cm. There is similar eccentric atheromatous plaque noted posteriorly. No dissection or acute periaortic abnormality. The aneurysm extends to the iliac bifurcation but does not involve the iliac bifurcations. Continued routine surveillance recommended. Electronically signed by: Gerardo Ashford MD 10/20/23 21:[address] 10/20/23 19:17 Exam(s): CT HEAD Without Contrast EXAM: CT Head Without Intravenous Contrast CLINICAL HISTORY: confusion. TECHNIQUE: Axial computed tomography images of the head/brain without intravenous contrast. CTDI is 36.79 mGy and DLP is 625.8 mGy-cm. Automated exposure control was utilized for the study. A dose lowering technique was utilized adhering to the principles of ALARA. COMPARISON: CT head without contrast dated 11/09/2021 FINDINGS: Brain: Unremarkable. No hemorrhage. No significant white matter disease. No edema. Ventricles: Unremarkable. No ventriculomegaly. Bones/joints: Unremarkable. No acute fracture. Soft tissues: No significant overlying acute traumatic soft tissue abnormality. No radiopaque foreign body. Sinuses: Unremarkable as visualized. No acute sinusitis. Mastoid air cells: Unremarkable as visualized. No mastoid effusion. IMPRESSION: No acute intracranial process or significant alteration from the prior examination. Electronically signed by: Gerardo Ashford MD 10/20/23 21:27 PM Diagnostic Findings Chest x-ray as per my interpretation no congestion EKG as per my interpretation : Rate 100, NSR, LAD, LAFB, RBBB, LVH, septal infarct, T wave inversion lateral leads, PVCs
[2023-10-20] MEDS ORDERED: PROMETHAZINE 6.25 MG/50.25 ML BAG IV PRN (23:58)
[2023-10-21] MEDS: MAGNESIUM SULFATE / D5W 1 GM/100 ML BAG IV SCH (00:02)
[2023-10-21] MEDS: POTASSIUM CHLORIDE 20 MEQ in LACTATED RINGER'S 1,000 ML IV ONE (00:03)
[2023-10-21 00:26] LABS: Base Excess VBG -6.6 mEq/L; HCO3 VBG 17 mmol/L; Oxygen Saturation VBG 93.8 %; PCO2 VBG 29 mmHg (38-50); PO2 VBG 67 mmHg; pH VBG 7.38 (7.36-7.41)
[2023-10-21] MEDS: AMPICILLIN/SULBACTAM SOD 3,000 MG/100 ML BAG IV STA (00:26)
[2023-10-21 00:45] LABS: Hematocrit (blood only) 42.3 % (42.0-52.0)
[2023-10-21] MEDS: POTASSIUM CHLORIDE / WTR 10 MEQ/100 ML PLCT IV SCH (02:01)
[2023-10-21] MEDS: oxyCODONE HCL IR 5 MG TAB (IMMEDIATE RELEASE) PO PRN (02:12)
[2023-10-21] MEDS: PANTOprazole 40 MG in DEXTROSE 5% MINI-B 100 ML IV SCH (02:18)
[2023-10-21 03:40] LABS: Appearance Urine Clear (Clear); Bacteria Urine Automated None Seen (None Seen); Bilirubin Urine Negative (Negative); Blood Urine Negative (Negative); Color Urine Yellow; Epithelial Cell Urine Auto 0-2 /hpf (0-2); Glucose Urine UA Negative (Negative); Ketones Urine Negative (Negative); Leukocyte Esterase Urine Negative (Negative); Nitrite Urine Negative (Negative); Protein Urine Trace (Negative); RBC Urine Automated 0-2 /hpf (0-2); Specific Gravity Urine > 1.045 (1.000-1.030); Urobilinogen Urine Negative (Negative); WBC Urine Automated 0-5 /hpf (0-5)
[2023-10-21 03:46] LABS: Adenovirus F 40/41 PCR Not Detected (NotDetected); Astrovirus PCR Not Detected (NotDetected); Campylobacter PCR Not Detected (NotDetected); Cryptosporidium PCR Not Detected (NotDetected); Cyclospora cayetanensis PCR Not Detected (NotDetected); Entamoeba histolytica PCR Not Detected (NotDetected); Enteroaggregative E.coli(EAEC) Not Detected (NotDetected); Enterotoxigenic E.coli (ETEC) Not Detected (NotDetected); Giardia lamblia PCR Not Detected (NotDetected); Norovirus GI/GII PCR Not Detected (NotDetected); Plesiomonas shigelloides PCR Not Detected (NotDetected); Rotavirus A PCR Not Detected (NotDetected); Salmonella PCR Not Detected (NotDetected); Sapovirus PCR Not Detected (NotDetected); Shiga-like Toxin E.coli (STEC) Not Detected (NotDetected); Shigella/Enteroinvasive E.coli Not Detected (NotDetected); Vibrio cholerae PCR Not Detected (NotDetected); Vibrio species PCR Not Detected (NotDetected); Yersinia enterocolitica PCR Not Detected (NotDetected)
--- OUTSIDE RECORDS SUMMARY | 2023-10-21 04:16 | External Medical Summary | Continuity of Care Document ---
Author Name Unknown Organization [place] Address [address] [facility] [place] [address] Phone [phone] Care Team Providers Care Procedure Analyst Name Role Phone [facility] - Cardiovascular Disease Care Team Information Resident Medical Officer [phone] [facility] [place] - Sleep Disorder Diagnostic Care Team Information Resident Medical Officer [phone] Problems Active Problems Provider Date Chronic pain syndrome Karishma Foley PA-C O nset: 12/28/2016 Hyperlipidemia Karishma Foley PA-C Onset: 12/28/2016 Essential hypertension Karishma Foley PA-C Onset: 12/28/2016 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 Cerebral infarction due to t hrombosis of cerebral arteries Adan Siegel PA-C Onset: 02/22/2017 Viral conjunctivitis Adan Siegel PA-C Ons et: 02/22/2017 Obstructive sleep apnea syndrome Adan abdul PA-C Onset: 04/01/2017 Generalized anxiety disorder Karishma Foley PA-C Onset: 05/03/2017 Difficulty breathing Karishma Foley PA-C On set: 05/03/2017 Low back pain Karishma Foley PA-C Onset: 09/27/2017 Chronic obstructive lung disease Karishma reyez PA-C Onset: 09/27/2017 Abdominal aortic aneurysm wi thout rupture OSKAR Yarbrough Onset: 08/06/2021 Social History Type Date Description Comments Sex Unknown Cigarette Use 04/28/2023 Quit - Age 54 Tobacco Use Reviewed: 12/31/22 Never Smoked Cigars Tobacco Use Reviewed: 12/31/22 Never Smoked A Pipe Smoking Status Reviewed: 07/27/23 Never Smoked A Pipe Smokeless Tobacco 12/31/2022 Never Used Smokeless To bacco ETOH Use Denies alcohol use Recreational Drug Use Denies Drug Use Allergies and adverse reactions Description No Known Drug Allergies Medications Active Medications SIG Qnty Indications Order ing Provider Date Sertraline [id number] Tablets 1 by mouth every night 90tabs Dilia Ramos MD 07/27/[address] 1 by mouth every day 90capellis harris MD 11/01/2022 Syringe 2-3 ML3ml Misc use to administer testosterone as prescribed 8units Dilia Ramos MD 08/08/2021 [id number] Tablets Take 1 Tablet By Mouth Every Day 90tabs I10 Florian Deluca MD 11/21/2020 Hydrocodone Bitartrate/Acetamin eooqs50-328nr Tablets take 1 tablet my mouth four times daily as needed for severe pain - for continued therapy 120tabs Dilia Ramos MD 10/22/2020 Aspirin-Dipyridamol e GS27-765zf Caps ER 12HR take 1 capsule by mouth twice a day 180dontrell Ramos MD 08/22/2020 Nspxtfkmzsi60zw Tablets take 1 tablet by mouth everyday at bedtime 90tabs Dilia Ramso MD 01/27/2020 Vitamin D (Ergocalciferol)1.2 5mg (98897 Ut) Capsules take 1 capsule by mouth one time per week 12dontrell Ramos MD 01/25/2020 Potassium Chloride LD49Czl Tablets ER Take 1 Tablet By Mouth Every Day 90tabs Florina Deluca MD 10/30/2019 Ropinirole HCL2mg Tablets take 1 tablet by three times a day 270tabs Dilia Ramos MD 02/26/2019 Hydrochlorothiazide 50mg Tablets take 1 tablet by mouth every day 90tabs Dilia Ramos MD 02/23/2018 Medications Administered in Office Medication SIG Qnty Indications Ordering Provider Date Injection Methylprednisolone Sodium Succinate To 40 MGInjection OSKAR Dean 04/07/2021 Injection Methylprednisolone Acetate 40 MGInjection OSKAR Yarbrough 04/07/2021 Injection Kenalog 10 MG [facility] [id number] Adan valente PA-C 02/22/2017 Injection Dexamethasone Sodi um Phosphate, 1 MGInjection Adan Siegel PA-C 02/22/2017 Immunizations CPT Code Status Date Vaccine Lot # 85070 Given 10/31/2020 Shingrix 83488 Given 05/16/2020 Moderna Sars-Co v-2 (Cov-19) vacc,100 mcg/ 0.5 mL 12Y+EMR Doc Only [id number] 80437 Given 04/18/2020 Moderna Sars-Co v-2 (Cov-19) vacc,100 mcg/ 0.5 mL 12Y+EMR Doc Only [id number] 86569 Given 11/21/2019 Shingrix [id number] Given 07/07/2015 Tdap (Tetanus, diphtheria & acel. pertussis) Adacel or Boostrix 65729 Given 07/19/2014 Zostavax Vaccine 27212 Refused 07/27/2023 Influenza Vac, Split, Preservative Free High Dose Age 65 & > 70681 Refused 07/27/2023 Pneumococcal Conjugate-Pr evnar 20 30242 Refused 07/27/2023 Sarscov2 Vaccin e 50 mcg/0.5 ML For Im Use 12 Yrs And Older 63646 Refused 03/10/2022 Shingrix 76370 Refused 03/10/2022 Pneumococcal Conjugate-Pr evnar 20 04175 Refused 03/10/2022 Influenza Virus Vaccine, Quadrivalent (Cciiv4), Derived From Cell 41936 Refused 03/10/2022 Moderna Sars-Co v-2 (Covid-19) Vaccine, BiValent Booster 12y+ 21777 Refused 03/05/2021 Influenza Vaccine High Do se 0.5ML Age 65 & > 58939 Refused 03/05/2021 Pneumococcal Conjugate-Pr evnar 13 40815 Refused 12/23/2017 Influenza Vacci ne Quadrivalent Preser/Antibiotic Free [place] Use 55514 Refused 09/27/2017 Shingrix 02563 Refused 09/27/2017 Influenza Vacci ne Quadrivalent Preser/Antibiotic Free Im Use Vital Signs Date Vital Result Comment 07/27/2023 9:22am BP Systolic 126 mmHg BP Diastolic 72 mmHg Body Temperature 97.6 F Heart Rate 57 /min Respiratory Rate 16 /min Weight 202.12 lb Weight 91.684 kg Height 65 inches 5'5" BMI (Body Mass Index) 33.6 kg/m2 [place] Body Weight 136 lb 04/28/2023 2:04pm BP Systolic 138 mmHg BP Diastolic 88 mmHg Body Temperature 97.4 F Heart Rate 68 /min Respiratory Rate 14 /min Weight 200.00 lb Weight 90.720 kg Height 65 inches 5'5" BMI (Body Mass Index) 33.3 kg/m2 [place] Body Weight 136 lb Results Test Acquired Date Facility Test Result H/L Range N ote Drug Monitor, Panel 6 W/Confirm Urine 07/27/[address] [facility] [place] [address] Alcohol Metabolites NEGATIVE ng/mL Normal <500 [facility] Alcohol Metab DNR Normal Ethyl Glucuronide (Etg) DNR ng/mL Normal <500 [facility] Etg DNR Normal Ethyl Sulfate (Ets) DNR ng/mL Normal <100 [facility] Ets DNR Normal Alcohol Metab Comments DNR Normal Amphetamines NEGATIVE ng/mL Normal <500 [facility] Amphetamines DNR Normal Amphetamine DNR ng/mL Normal <250 [facility] Amphetamine DNR Normal Methamphetamine DNR ng/mL Normal <250 [facility] Methamphetamine DNR Normal Amphetamines Comments DNR Normal Barbiturates NEGATIVE ng/mL Normal <300 [facility] Barbiturates DNR Normal Amobarbital DNR ng/mL Normal <100 [facility] Amobarbital DNR Normal Butalbital DNR ng/mL Normal <100 [facility] Butalbital DNR Normal Pentobarbital DNR ng/mL Normal <100 [facility] Pentobarbital DNR Normal Phenobarbital DNR ng/mL Normal <100 [facility] Phenobarbital DNR Normal Secobarbital DNR ng/mL Normal <100 [facility] Secobarbital DNR Normal Barbiturates Comments DNR Normal Benzodiazepines NEGATIVE ng/mL Normal <100 [facility] Benzodiazepines DNR Normal Alphahydroxyalprazolam DNR ng/mL Normal <25 medMATCH aOH alprazolam DNR Normal Alphahydroxymidazolam DNR ng/mL Normal <50 medMATCH aOH midazolam DNR Normal Alphahydroxytriazolam DNR ng/mL Normal <50 medMATCH aOH triazolam DNR Normal Aminoclonazepam DNR ng/mL Normal <25 [facility]MATCH Aminoclonazepam DNR Normal Hydroxyethylflurazepam DNR ng/mL Normal <50 medMATCH Oh,Et flurazepam DNR Normal Lorazepam DNR ng/mL Normal <50 [facility]MATCH Lorazepam DNR Normal Nordiazepam DNR ng/mL Normal <50 medMATCH Nordiazepam DNR Normal Oxazepam DNR ng/mL Normal <50 [facility]MATCH Oxazepam DNR Normal Temazepam DNR ng/mL Normal <50 [facility]MATCH Temazepam DNR Normal Benzodiazepines Comments DNR Normal Cocaine Metabolite NEGATIVE ng/mL Normal <150 [facility]MATCH Cocaine Metab DNR Normal Benzoylecgonine DNR ng/mL Normal <100 [facility]MATCH Benzoylecgonine DNR Normal Cocaine Comments DNR Normal 6 Acetylmorphine NEGATIVE ng/mL Normal <10 medMATCH 6 Acetylmorphine DNR Normal 6 Acetylmorphine DNR ng/mL Normal <10 medMATCH 6 Acetylmorph DNR Normal Heroin Metab Comments DNR Normal Marijuana Metabolite NEGATIVE ng/mL Normal <20 medMATCH Marijuana Metab DNR Normal Marijuana Metabolite DNR ng/mL Normal <5 [facility]MATCH Marijuana Metab DNR Normal Marijuana Comments DNR Normal Methadone Metabolite NEGATIVE ng/mL Normal <100 medMATCH Methadone Metab DNR Normal Eddp DNR ng/mL Normal <100 medMATCH Eddp DNR Normal Methadone DNR ng/mL Normal <100 medMATCH Methadone DNR Normal Methadone Comments DNR Normal Opiates POSITIVE ng/mL Abnormal <100 medMATCH Opiates DNR Normal Codeine NEGATIVE ng/mL Normal <50 medMATCH Codeine DNR Normal Hydrocodone 2464 ng/mL High <50 medMATCH Hydrocodone DNR Normal Hydromorphone 444 ng/mL High <50 [facility]MATCH Hydromorphone DNR Normal Morphine NEGATIVE ng/mL Normal <50 [facility]MATCH Morphine DNR Normal Norhydrocodone 4012 ng/mL High <50 medMATCH Norhydrocodone DNR Normal Opiates Comments (SEE NOTE) 1 Oxycodone NEGATIVE ng/mL Normal <100 [facility]MATCH Oxycodone DNR Normal Noroxycodone DNR ng/mL Normal <50 [facility]MATCH Noroxycodone DNR Normal Oxycodone DNR ng/mL Normal <50 [facility]MATCH Oxycodone DNR Normal Oxymorphone DNR ng/mL Normal <50 [facility]MATCH Oxymorphone DNR Normal Oxycodone Comments DNR Normal Phencyclidine NEGATIVE ng/mL Normal <25 [facility]MATCH Phencyclidine DNR Normal Phencyclidine DNR ng/mL Normal <25 [facility]MATCH Phencyclidine DNR Normal Phencyclidine Comments DNR Normal Creatinine 144.3 mg/dL Normal > or = 20.0 Specific [place] DNR Normal > or = 1.003 pH 4.8 Normal 4.5-9.0 Oxidant NEGATIVE g /mL Normal <200 Abnormal Specimen Validity Test: DNR Normal Drug Monitoring Template [facility] [employer] [facility] [place] [address] [phone] Notes and Comments (SEE NOTE) 2 Patient Historical Report DNR Normal Laboratory test finding 07/27/[address] [place] [address] [phone] Enhanced PDF Report [id number] SEE IMAGE 1 See Opiates Notes, L DT Notes 2 This drug testing is for medical treatment only. Analysis was performed as non-forensic testing and these results should be used only by healthcare providers to render diagnosis or treatment, or to monitor progress of medical conditions. Opiates Notes: Hydrocodone, Norhydrocodone, Hydromorphone detected is consistent with the use of the drug Hydrocodone. Hydromorphone detected is consistent with the use of the drug Hydromorphone. Hydromorphone can be a prescribed drug and is also a metabolite of Hydrocodone. LDT Notes: Confirmation tests were developed and their analytical performance characteristics have been determined by [facility]. It has not been cleared or approved by the FDA. This assay has been validated pursuant to the CLIA regulations and is used for clinical purposes. Healthcare Providers needing Interpretation assistance, please contact us at [phone] ( ) M-F, 8am to 10pm EST Procedures Date Code Description Status 07/27/2023 G2211 Continuation of care e/m vis it add on Completed 07/27/2023 3078F PVRP Diastolic BP <80 mmHg C ompleted 07/27/2023 3074F PVRP Systolic BP <130 mmHg C ompleted 04/28/2023 3079F PVRP Diastolic BP 80-89 MMHG Completed 04/28/2023 3075F PVRP Systolic BP 130 To 139 MMHG Completed 04/28/2023 1101F PT SCR Future Fall Risk, No Fall Or 1 W/Out Injury Completed Medical Devices Description No Information Available Encounters Type Date Location Provider Dx Diagnosis Office Visit 07/27/2023 9:30a David Siegel PA-C I10 Essential (primary) hypertension F33.1 Major depressive dis order, recurrent, moderate E78.2 Mixed hyperlipidemia M51.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, lumbar region K21.9 Gastro-esophageal re flux disease without esophagitis Office Visit 04/28/2023 2:00p David valente PA-C Z00.01 Encounter for general adult medical exam w abnormal findings F33.1 Major depressive dis order, recurrent, moderate I71.40 Abdominal aortic ane urysm, without rupture, unspecified D69.6 Thrombocytopenia, un specified E66.01 Morbid (severe) obes ity due to excess calories I10 Essential (primary) hypertension G47.33 Obstructive sleep ap annie (adult) (pediatric) E78.5 Hyperlipidemia, unsp ecified Assessments Date Code Description Provider 07/27/2023 I10 Essential (primary) hyperten carey Adan Siegel PA-C 07/27/2023 F33.1 Major depressive disorder, recurrent, moderate Adan Siegel PA-C 07/27/2023 E78.2 Mixed hyperlipidemia Adan Siegel PA-C 07/27/2023 M51.16 Intervertebral d isc disorders with radiculopathy, lumbar region Adan Siegel PA-C 07/27/2023 K21.9 Gastro-esophagea l reflux disease without esophagitis Adan Siegel PA-C 04/28/2023 Z00.01 Encounter for ge neral adult medical examination with abnormal findings Adan Siegel PA-C 04/28/2023 F33.1 Major depressive disorder, recurrent, moderate Adan Siegel PA-C 04/28/2023 I71.40 Abdominal aortic aneurysm, without rupture, unspecified Adan Siegel PA-C 04/28/2023 D69.6 Thrombocytopenia, unspecifie d Adan Siegel PA-C 04/28/2023 E66.01 Morbid (severe) obesity due to excess calories Adan Siegel PA-C 04/28/2023 I10 Essential (primary) hyperten carey Adan Siegel PA-C 04/28/2023 G47.33 Obstructive sleep apnea (stacey lt) (pediatric) Adan Siegel PA-C 04/28/2023 E78.5 Hyperlipidemia, unspecified Adan Siegel PA-C Plan of Treatment 07/27/2023 - Adan Siegel PA-C* I10 Essential (primary) hypertension* New Labs:* Urinalysis,Cult If Indicated, Ordered: 07/27/23 * Comments:* Continue medication as prescribed Low-sodium diet Blood pressure stable * Recommendations:* Low-salt diet. Exercise. Continue medication as directed. * F33.1 Major depressive disorder, recurrent, moderate* Comments:* Discontinue Lexapro on his own Requesting to restart something different Stress relieving exercise Aware to go to the emergency department if he develops suicidal homicidal ideations * E78.2 Mixed hyperlipidemia* Comments:* Continue current medication. Decrease sugars and carbs in diet Repeat full set of lab work today Diet and exercise plan discussed at length * Recommendations:* Low-fat, low-cholesterol diet. Exercise. 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 Avoid triggers Symptoms stable * All* New Medication:* Sertraline HCL 50 mg - 1 by mouth every night Functional Status Description No Information Available Mental Status Description No Information Available Referrals Description No Information Available
--- OUTSIDE RECORDS SUMMARY | 2023-10-21 04:16 | External Medical Summary | Continuity of Care Document ---
Author Name Unknown Organization [place] Address [address] [facility] [place] [address] Phone [phone] Care Team Providers Care Millinery Worker Name Role Phone [facility] - Cardiovascular Disease Care Team Information Financial Services Officer [phone] [facility] [place] - Sleep Disorder Diagnostic Care Team Information Financial Services Officer [phone] Problems Active Problems Provider Date Chronic pain syndrome Karishma Foley PA-C O nset: 12/28/2016 Hyperlipidemia Karishma Foley PA-C Onset: 12/28/2016 Essential hypertension Karishma Foley PA-C Onset: 12/28/2016 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 Cerebral infarction due to t hrombosis of cerebral arteries Adan Siegel PA-C Onset: 02/22/2017 Viral conjunctivitis dAan Siegel PA-C Ons et: 02/22/2017 Obstructive sleep [...] Qnty Indications Order ing Provider Date Sertraline NNT65mb Tablets 1 by mouth every night 90tabs Dilia Ramos MD 07/27/[address] 1 by mouth every day 90capellis harris MD 11/01/2022 Syringe 2-3 ML3ml Misc use to administer testosterone as prescribed 8units Dilia Ramos MD 08/08/2021 Ovrxkuyep872wh Tablets Take 1 Tablet By Mouth Every Day 90tabs I10 Florian Deluca MD 11/21/2020 Hydrocodone Bitartrate/Acetamin -975ib Tablets take 1 tablet my mouth four times daily as needed for severe pain - for continued therapy 120tabs Dilia Ramos MD 10/22/2020 Aspirin-Dipyridamol e DV64-866tw Caps ER 12HR take 1 capsule by mouth twice a day 180dontrell Ramos MD 08/22/2020 Pcdfamfvkfs37ju Tablets take 1 tablet by mouth everyday at bedtime 90tabs Dilia Ramos MD 01/27/2020 Vitamin D (Ergocalciferol)1.2 5mg (76762 Ut) Capsules take 1 capsule by mouth one time per week 12dontrell Ramos MD 01/25/2020 Potassium Chloride SU56Our Tablets ER Take 1 Tablet By Mouth Every Day 90tabs Florian Deluca MD 10/30/2019 Ropinirole HCL2mg Tablets take [...] OSKAR Yarbrough 04/07/2021 Injection Kenalog [address] [facility] [id number] Adan valente PA-C 02/22/2017 Injection Dexamethasone Sodi um Phosphate, 1 MGInjection Adan Siegel PA-C 02/22/2017 Immunizations CPT Code Status Date Vaccine Lot # [id number] Given 10/31/2020 Shingrix 04554 Given 05/16/2020 Moderna Sars-Co v-2 (Cov-19) vacc,100 mcg/ 0.5 mL 12Y+EMR Doc Only [id number] 06941 Given 04/18/2020 Moderna Sars-Co v-2 (Cov-19) vacc,100 mcg/ 0.5 mL 12Y+EMR Doc Only [id number] 24450 Given 11/21/2019 Shingrix 07219 Given 07/07/2015 Tdap (Tetanus, diphtheria & acel. pertussis) Adacel or Boostrix 99393 Given 07/19/2014 Zostavax Vaccine 95971 Refused 07/27/2023 Influenza Vac, Split, Preservative Free High Dose Age 65 & > 15079 Refused 07/27/2023 Pneumococcal Conjugate-Pr evnar 20 06096 Refused 07/27/2023 Sarscov2 Vaccin e 50 mcg/0.5 ML For Im Use 12 Yrs And Older 59535 Refused 03/10/2022 Shingrix 20083 Refused 03/10/2022 Pneumococcal Conjugate-Pr evnar 20 46327 Refused 03/10/2022 Influenza Virus Vaccine, Quadrivalent (Cciiv4), Derived From Cell 49549 Refused 03/10/2022 Moderna Sars-Co v-2 (Covid-19) Vaccine, BiValent Booster [id number] [id number] Refused 03/05/2021 Influenza Vaccine High Do se 0.5ML Age 65 & > 03806 Refused 03/05/2021 Pneumococcal Conjugate-Pr evnar 13 11597 Refused 12/23/2017 Influenza Vacci ne Quadrivalent Preser/Antibiotic Free Im Use 76636 Refused 09/27/2017 Shingrix 58712 Refused 09/27/2017 Influenza Vacci ne Quadrivalent Preser/Antibiotic Free Im Use Vital Signs Date Vital Result Comment 07/27/2023 9:22am BP Systolic 126 mmHg BP Diastolic 72 mmHg Body Temperature 97.6 F Heart Rate 57 /min Respiratory Rate 16 /min Weight 202.12 lb Weight 91.684 kg Height 65 inches 5'5" BMI (Body Mass Index) 33.6 kg/m2 [place] Body Weight 136 lb 04/28/2023 2:04pm BP Systolic 138 mmHg BP Diastolic 88 mmHg Body Temperature 97.4 F Heart Rate 68 /min Respiratory Rate 14 /min Weight 200.00 lb Weight 90.720 kg Height 65 inches 5'5" BMI (Body Mass Index) 33.3 kg/m2 [place] Body Weight 136 lb Results Test Acquired Date Facility Test Result H/L Range N ote Drug Monitor, Panel 6 W/Confirm Urine 07/27/[address] [facility] [place] [address] Alcohol Metabolites NEGATIVE ng/mL Normal <500 medMATCH [...] mg/dL Normal > or = 20.0 Specific [place] DNR Normal > or = 1.003 pH 4.8 Normal 4.5-9.0 Oxidant NEGATIVE g /mL Normal <200 Abnormal Specimen Validity Test: DNR Normal Drug Monitoring [facility] [employer] [facility] [place] [address] [phone] Notes and Comments (SEE NOTE) 2 Patient Historical Report DNR Normal Laboratory test finding 07/27/[address] [place] [address] [phone] Enhanced PDF Report [id number] SEE IMAGE 1 See Opiates Notes, L [...] analytical performance characteristics have been determined by [facility]. It has not been cleared or approved by the FDA. This assay has been validated pursuant to the CLIA regulations and is used for clinical purposes. 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 Avoid triggers Symptoms stable * All* New Medication:* Sertraline HCL 50 mg - 1 by mouth every night Functional Status Description No Information Available Mental Status Description No Information Available Referrals Description No Information Available
--- OUTSIDE RECORDS SUMMARY | 2023-10-21 04:16 | External Medical Summary | Summary of Care ---
Author Name Unknown Organization [facility] Address [address] [place] [address] Phone [phone] Care Team Providers Care Wood Web Weaving Machine Operator Name Role Phone Iza Lara Primary Care Provider Reason for Visit * Reason Onset Date Comments [facility] 08/26/2023 Encounter Details Date Type Department Care Team (Late st Contact Info) Description 08/26/2023 Telephone [facility] [address] [place] [address] Program, Stair [address] [place] [address] [facility] Allergies No known active allergiesdocumented as of this encounter (statuses as of 08/26/2023) Medications Medication Sig Dispensed Refills Start Date End Date Status AGGRENOX 25-200 MG PO CP12 1 CAPSULE TWICE DAILY 05/19/2011 Act randi LISINOPRIL 40 MG PO TABS one twice daily 05/19/2011 Active OMEPRAZOLE 20 MG PO TBEC twice daily 05/19/2011 Active DIOVAN 320 MG PO TABS 1 TABLET DAILY 05/19/2011 Active HYDROCHLOROTHIAZIDE 50 MG PO TABS one tablet daily Activ e Hydrocodone-Acetami nophen 10-325 MG/15ML SOLN Take 1 Tab by mouth 4 times a day as needed for Pain. Active albuterol (VENTOLIN HFA) 108 (90 BASE) MCG/ACT inhaler Inhale 2 Puffs by mouth every 4 hours as needed for Wheezing. Active Mometasone Furo-Formoterol Fum (DULERA) 100-5 MCG/ACT Inhaler Inhale 2 Puffs by mouth 2 times a day. Active Escitalopram Oxalate 20 MG Oral Tablet (Lexapro) Take by mouth . 10/23/2021 Act randi rOPINIRole HCl 2 MG Oral Tablet (Requip) Take by mouth 2 mg in the morning AND 2 mg at noon AND 2 mg before bedtime. 02/26/2019 Active Simvastatin 80 MG Oral Tablet (Zocor) Take by mouth 80 mg in the morning. 01/27/2020 Active Testosterone Cypionate 200 MG/ML Intramuscular Solution (Depotestosterone Cypionate) INJECT 1ML INTRAMUSCULARLY ONCE WEEKLY 11/28/2021 Active documented as of this encounter (statuses as of 08/26/2023) Active Problems Problem Noted Date Diagnosed Date AAA (abdominal aortic aneurysm) 08/25/2012 Headache 05/19/2011 Overview: ICD-10 update of inactive term Cerebrovascular disease, arteriosclerotic, post- stroke 05/19/2011 documented as of this encounter (statuses as of 08/26/2023) Social History Tobacco Use Types Packs/Day Years Used Date Smoking Tobacco: Former Cigarettes Q uit: 07/18/2010 Smokeless Tobacco: Never Alcohol Use Standard Drinks/Week Comments No 0 (1 standard drink = 0.6 oz pur e alcohol) Utilities Answer Date Recorded Do you have trouble paying y our heating, water, or electric bill? (Adult - for ages 18 years and over) Not on file 08/24/2023 Is your family able to pay t he heat, water, or electric bill? (Household - for ages 0-17 years) Not on file 08/24/2023 Does your family have access to good internet? (Household - for ages 0-17 years) Not on file 08/24/2023 Social Connections Answer Date Recorded How often do you feel lonely or isolated from those around you? (Adult - for ages 18 years and over) Not on file 08/24/2023 Sex and Gender Information Value Date Recorded Sex Assigned at Not on file Gender Identity Not on file Sexual Orientation Not on file Job Start Date Occupation Industry Not on file Not on file Not on file documented as of this encounter Miscellaneous Notes * Telephone Encounter - Dania Lauren LPN - 08/26/2023 8:01 AM EDT AAA - Clinical Summary Name: Nilton Shah Age: [age] year old AAA Review: Initial Follow-up Encounter Provider: N/A Patient Identified by: Problem List Report Imaging Interpretation: Other Type of Result: Other (dx on problem list) AAA Care Plan Imaging Recommendation: Aortic Duplex - details below Details: now AAA Care Plan Visit Recommendation: No Visit needed Details: None Next steps: Letter sent to non-[facility] PCP. Patient has not been enrolled in [facility]. Time spent: 10 minutes Dania Lauren LPN Coordinator STAIR (System to Track Abnormalities of Importance Reliably) No results found for this or any previous visit from the past 750 days. documented in this encounter Plan of Treatment Health Maintenance Due Date Last Done Comments Depression Screening 1966 AAA Monitoring 1972 Hepatitis C Screening 1972 DTaP,Tdap,and Td Vaccines (1 - Tdap) 1973 Cologuard 07/12/1999 Colonoscopy 07/12/1999 Colorectal Cancer Screening 07/12/1999 Fecal Occult Blood Test 07/12/1999 Sigmoidoscopy 07/12/1999 *BASELINE EKG FOR HTN 03/07/2014 Diabetes Screening 02/16/2017 02/16/2014, 02/16/2014 Pneumococcal Vaccine: 65+ Years (1 of 1 - PCV) 07/12/2019 COVID-19 Vaccine (2022-2 4 season) 2022 Influenza Vaccine (FLU shot) (Season Ended) 2023 Zoster Vaccines Completed 10/31/2020, 11/21/2019, 07/19/2014 GARDASIL-HPV IMMUNIZATION SERIES Aged Out No longer eligible b ased on patient's age to complete this topic Hepatitis B Aged Out No longer eligi ble based on patient's age to complete this topic MENINGOCOCCAL (MENACTRA/MENVEO) Aged Out No longer eligible b ased on patient's age to complete this topic documented as of this encounter Medical Devices Not on filedocumented as of this encounter Care Teams Wood Web Weaving Machine Operator Relationship Specialty Start Date End Date Iza Lara CRNP PCP - General Nurse Practitioner 08/21/19 documented as of this encounter
--- OUTSIDE RECORDS SUMMARY | 2023-10-21 04:17 | External Medical Summary | Continuity of Care Document ---
Author Name Unknown Organization [facility] Address [address] [facility] [place] [address] Phone [phone] Care Team Providers Care Efficiency Clerk Name Role Phone [facility] - Cardiovascular Disease Care Team Information Hammerer Helper [phone] [facility] [place] - Sleep Disorder Diagnostic Care Team Information Hammerer Helper [phone] Problems Active Problems Provider Date Chronic pain [...] Qnty Indications Order ing Provider Date Sertraline LSY08ti Tablets 1 by mouth every night 90tabs Dilia Ramos MD 07/27/[id number] 1 by mouth every day 90capellis harris MD 11/01/2022 Syringe 2-3 ML3ml Misc use to administer testosterone as prescribed 8units Dilia Ramos MD 08/08/2021 Jzuvujvil959jc Tablets Take 1 Tablet By Mouth Every Day 90tabs I10 Florian Deluca MD 11/21/2020 Hydrocodone Bitartrate/Acetamin cqodu03-029ak Tablets take 1 tablet my mouth four times daily as needed for severe pain - for continued therapy 120tabs Dilia Ramos MD 10/22/2020 Aspirin-Dipyridamol e [id number] Caps ER 12HR take 1 capsule by mouth twice a day 180dontrell Ramos MD 08/22/2020 Cxzfcigjpnk64jx Tablets take 1 tablet by mouth everyday at bedtime 90tabs Dilia Ramos MD 01/27/2020 Vitamin D (Ergocalciferol)1.2 5mg (68356 Ut) Capsules take 1 capsule by mouth one time per week 12dontrell Ramos MD 01/25/2020 Potassium Chloride XJ95Wxt Tablets ER Take 1 Tablet By Mouth [...] OSKAR Yarbrough 04/07/2021 Injection Kenalog 10 MG [facility] [id number] Adan valente PA-C 02/22/2017 Injection Dexamethasone Sodi um Phosphate, 1 MGInjection Adan Siegel PA-C 02/22/2017 Immunizations CPT Code Status Date Vaccine Lot # [id number] Given 10/31/2020 Shingrix 44722 Given 05/16/2020 Moderna Sars-Co v-2 (Cov-19) vacc,100 mcg/ 0.5 mL 12Y+EMR Doc Only [id number] 86140 Given 04/18/2020 Moderna Sars-Co v-2 (Cov-19) vacc,100 mcg/ 0.5 mL 12Y+EMR Doc Only [id number] 03251 Given 11/21/2019 Shingrix 37856 Given 07/07/2015 Tdap (Tetanus, diphtheria & acel. pertussis) Adacel or Boostrix 05472 Given 07/19/2014 Zostavax Vaccine 41278 Refused 07/27/2023 Influenza Vac, Split, Preservative Free High Dose Age 65 & > 49[address] Refused 07/27/2023 Pneumococcal Conjugate-Pr evnar 20 33350 Refused 07/27/2023 Sarscov2 Vaccin e 50 mcg/0.5 ML For Im Use 12 Yrs And Older 58979 Refused 03/10/2022 Shingrix 48620 Refused 03/10/2022 Pneumococcal Conjugate-Pr evnar 20 05427 Refused 03/10/2022 Influenza Virus Vaccine, Quadrivalent (Cciiv4), Derived From Cell [id number] Refused 03/10/2022 Moderna Sars-Co v-2 (Covid-19) Vaccine, BiValent Booster 12y+ 11106 Refused 03/05/2021 Influenza Vaccine High Do se 0.5ML Age 65 & > 33436 Refused 03/05/2021 Pneumococcal Conjugate-Pr evnar 13 53024 Refused 12/23/2017 Influenza Vacci ne Quadrivalent Preser/Antibiotic Free Im Use 11366 Refused 09/27/2017 Shingrix 65969 Refused 09/27/2017 Influenza Vacci ne Quadrivalent Preser/Antibiotic Free Im Use Vital Signs Date Vital Result Comment 07/27/2023 9:22am BP Systolic 126 mmHg BP Diastolic 72 mmHg Body Temperature 97.6 F Heart Rate 57 /min Respiratory Rate 16 /min Weight 202.12 lb Weight 91.684 kg Height 65 inches 5'5" BMI (Body Mass Index) 33.6 kg/m2 [place] Body Weight 136 lb 04/28/2023 2:04pm BP Systolic 138 mmHg BP Diastolic 88 mmHg Body Temperature 97.4 F Heart Rate 68 /min Respiratory Rate 14 /min Weight 200.00 lb Weight 90.720 kg Height 65 inches 5'5" BMI (Body Mass Index) 33.3 kg/m2 [place] Body Weight 136 lb Results Test Acquired Date Facility Test Result H/L Range N ote Drug Monitor, Panel 6 W/Confirm Urine 07/27/[address] [facility] [place] [address] Alcohol Metabolites NEGATIVE ng/mL Normal <500 medMATCH [...] mg/dL Normal > or = 20.0 Specific [place] DNR Normal > or = 1.003 pH 4.8 Normal 4.5-9.0 Oxidant NEGATIVE g /mL Normal <200 Abnormal Specimen Validity Test: DNR Normal Drug Monitoring Template [facility] [place] [address] [phone] Notes and Comments (SEE NOTE) 2 Patient Historical Report DNR Normal Laboratory test finding 07/27/[address] [facility] [place] [address] [phone] Enhanced PDF Report [id number] SEE IMAGE 1 See Opiates Notes, L [...] analytical performance characteristics have been determined by [facility]. It has not been cleared or approved by the FDA. This assay has been validated pursuant to the CLIA regulations and is used for clinical purposes. Healthcare Providers needing Interpretation assistance, please contact us at [phone] ( ) M-F, 8am to 10pm EST Procedures Date Code Description Status 07/27/2023 3078F PVRP Diastolic BP <80 mmHg [...] Date Location Provider Dx Diagnosis Office Visit 04/28/2023 2:00p [place] Adan Siegel PA-C Z00.01 Encounter for general adult medical [...] (primary) hyperten carey Adan Siegel PA-C 07/27/2023 E78.2 Mixed hyperlipidemia Adan Siegel PA-C 07/27/2023 F33.1 Major depressive disorder, recurrent, moderate Adan Siegel PA-C 07/27/2023 M51.16 Intervertebral d [...] diet. Exercise. Continue medication as directed. * E78.2 Mixed hyperlipidemia* Comments:* Continue current medication. Decrease sugars and carbs in diet Repeat full set of lab work today Diet and exercise plan discussed at length * Recommendations:* Low-fat, low-cholesterol diet. Exercise. 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 Avoid triggers Symptoms stable * All* New Medication:* Sertraline HCL 50 mg - 1 by mouth every night Functional Status Description No Information Available Mental Status Description No Information Available Referrals Description No Information Available
--- OUTSIDE RECORDS SUMMARY | 2023-10-21 04:17 | External Medical Summary | Continuity of Care Document ---
Author Name Unknown Organization [place] Address [address] [facility] [place] [address] Phone [phone] Care Team Providers Care Artificial Teeth Inspector Name Role Phone [facility] - Cardiovascular Disease Care Team Information Digital Archivist [phone] [facility] [place] - Sleep Disorder Diagnostic Care Team Information Digital Archivist [phone] Problems Active Problems Provider Date Chronic pain [...] Qnty Indications Order ing Provider Date Sertraline EXJ84id Tablets 1 by mouth every night 90tabs Dilia Ramos MD 07/27/[address] 1 by mouth every day 90capellis harris MD 11/01/2022 Syringe 2-3 ML3ml Misc use to administer testosterone as prescribed 8units Diila Ramos MD 08/08/2021 Wqybztobk353tf Tablets Take 1 Tablet By Mouth Every Day 90tabs I10 Florian Deluca MD 11/21/2020 Hydrocodone Bitartrate/Acetamin fuzkb49-059cb Tablets take 1 tablet my mouth four times daily as needed for severe pain - for continued therapy 120tabs Dilia Ramos MD 10/22/2020 Aspirin-Dipyridamol e NP54-353gf Caps ER 12HR take 1 capsule by mouth twice a day 180dontrell Ramos MD 08/22/2020 Jnkeaxssqnu56nv Tablets take 1 tablet by mouth everyday at bedtime 90tabs Dilia Ramos MD 01/27/2020 Vitamin D (Ergocalciferol)1.2 5mg (45722 Ut) Capsules take 1 capsule by mouth one time per week 12dontrell Ramos MD 01/25/2020 Potassium Chloride GZ99Oks Tablets ER Take 1 Tablet By Mouth [...] Yarbrough 04/07/2021 Injection Kenalog 10 MG [facility] [id number] Adan valente PA-C 02/22/2017 Injection Dexamethasone Sodi um Phosphate, 1 MGInjection Adan Siegel PA-C 02/22/2017 Immunizations CPT Code Status Date Vaccine Lot # [id number] Given 10/31/2020 Shingrix 54845 Given 05/16/2020 Moderna Sars-Co v-2 (Cov-19) vacc,100 mcg/ 0.5 mL 12Y+EMR Doc Only [id number] 05662 Given 04/18/2020 Moderna Sars-Co v-2 (Cov-19) vacc,100 mcg/ 0.5 mL 12Y+EMR Doc Only [id number] 30853 Given 11/21/2019 Shingrix 24740 Given 07/07/2015 Tdap (Tetanus, diphtheria & acel. pertussis) Adacel or Boostrix 72490 Given 07/19/2014 Zostavax Vaccine 66064 Refused 07/27/2023 Influenza Vac, Split, Preservative Free High Dose Age 65 & > 72325 Refused 07/27/2023 Pneumococcal Conjugate-Pr evnar 20 19841 Refused 07/27/2023 Sarscov2 Vaccin e 50 mcg/0.5 ML For Im Use 12 Yrs And Older 16112 Refused 03/10/2022 Shingrix 52995 Refused 03/10/2022 Pneumococcal Conjugate-Pr evnar 20 72836 Refused 03/10/2022 Influenza Virus Vaccine, Quadrivalent (Cciiv4), Derived From Cell 91238 Refused 03/10/2022 Moderna Sars-Co v-2 (Covid-19) Vaccine, BiValent Booster 12y+ 01578 Refused 03/05/2021 Influenza Vaccine High Do se 0.5ML Age 65 & > 36652 Refused 03/05/2021 Pneumococcal Conjugate-Pr evnar 13 66601 Refused 12/23/2017 Influenza Vacci ne Quadrivalent Preser/Antibiotic Free Im Use 34802 Refused 09/27/2017 Shingrix 27074 Refused 09/27/2017 Influenza Vacci ne Quadrivalent Preser/Antibiotic Free Im Use Vital Signs Date Vital Result Comment 07/27/2023 9:22am BP Systolic 126 mmHg BP Diastolic 72 mmHg Body Temperature 97.6 F Heart Rate 57 /min Respiratory Rate 16 /min Weight 202.12 lb Weight 91.684 kg Height 65 inches 5'5" BMI (Body Mass Index) 33.6 kg/m2 [place] Body Weight 136 lb 04/28/2023 2:04pm BP Systolic 138 mmHg BP Diastolic 88 mmHg Body Temperature 97.4 F Heart Rate 68 /min Respiratory Rate 14 /min Weight 200.00 lb Weight 90.720 kg Height 65 inches 5'5" BMI (Body Mass Index) 33.3 kg/m2 [place] Body Weight 136 lb Procedures Date Code Description Status 04/28/2023 3079F PVRP Diastolic BP 80-89 MMHG Completed 04/28/2023 3075F PVRP Systolic BP 130 To 139 MMHG Completed 04/28/2023 1101F PT SCR Future Fall Risk, No Fall Or 1 W/Out Injury Completed Medical Devices Description No Information Available Encounters Type Date Location Provider Dx Diagnosis Office Visit 04/28/2023 2:00p David Siegel PA-C Z00.01 Encounter for general adult medical exam w abnormal findings F33.1 Major depressive dis order, recurrent, moderate I71.40 Abdominal aortic ane urysm, without rupture, unspecified D69.6 Thrombocytopenia, un specified E66.01 Morbid (severe) obes ity due to excess calories I10 Essential (primary) hypertension G47.33 Obstructive sleep ap annie (adult) (pediatric) E78.5 Hyperlipidemia, unsp ecified Assessments Date Code Description Provider 04/28/2023 Z00.01 Encounter for [facility] adult medical examination with abnormal findings Adan [...] of Treatment 07/27/2023 - Adan Siegel PA-C* All* New Medication:* Sertraline HCL 50 mg - 1 by mouth every night * New Labs:* Comp. Met, Ordered: 07/27/23 * CBC W/Diff, Ordered: 07/27/23 * Lipid, Ordered: 07/27/23 * Hba1c, Ordered: 07/27/23 * Urinalysis,Cult If Indicated, Ordered: 07/27/23 * Vitd-25Oh, Ordered: 07/27/23 * VB12, Ordered: 07/27/23 * Iron Panel(Medcom), Ordered: 07/27/23 * TSH, Ordered: 07/27/23 * Psa2, Ordered: 07/27/23 Functional Status Description No Information Available Mental Status Description No Information Available Referrals Description No Information Available
--- OUTSIDE RECORDS SUMMARY | 2023-10-21 04:17 | External Medical Summary | Continuity of Care Document ---
Author Name Unknown Organization [place] Address [address] [facility] [place] [address] Phone [phone] Care Team Providers Care Golf Club Manager Name Role Phone [facility] - Cardiovascular Disease Care Team Information Vocational Instructor [phone] [facility] - [facility] Sleep [place] - Sleep Disorder Diagnostic Care Team Information Vocational Instructor [phone] Problems Active Problems Provider Date Chronic pain [...] Qnty Indications Order ing Provider Date Sertraline AKF83kk Tablets 1 by mouth every night 90tabs Dilia Ramos MD 07/27/[address] 1 by mouth every day 90capellis harris MD 11/01/2022 Syringe 2-3 ML3ml Misc use to administer testosterone as prescribed 8units Dilia Ramos MD 08/08/2021 Dfctnecyn629hp Tablets Take 1 Tablet By Mouth Every Day 90tabs I10 Florian Deluca MD 11/21/2020 Hydrocodone Bitartrate/Acetamin -988sk Tablets take 1 tablet my mouth four times daily as needed for severe pain - for continued therapy 120tabs Dilia Ramos MD 10/22/2020 Aspirin-Dipyridamol e JT37-966tj Caps ER 12HR take 1 capsule by mouth twice a day 180dontrell Ramos MD 08/22/2020 Qzvsvnnnjpn36ok Tablets take 1 tablet by mouth everyday at bedtime 90tabs Dilia Ramos MD 01/27/2020 Vitamin D (Ergocalciferol)1.2 5mg (29217 Ut) Capsules take 1 capsule by mouth one time per week 12dontrell Ramos MD 01/25/2020 Potassium Chloride VS01Hxh Tablets ER Take 1 Tablet By Mouth [...] Yarbrough 04/07/2021 Injection Kenalog 10 MG [facility] [id number] Adan valente PA-C 02/22/2017 Injection Dexamethasone Sodi um Phosphate, 1 MGInjection Adan Siegel PA-C 02/22/2017 Immunizations CPT Code Status Date Vaccine Lot # [id number] Given 10/31/2020 Shingrix 27810 Given 05/16/2020 Moderna Sars-Co v-2 (Cov-19) vacc,100 mcg/ 0.5 mL 12Y+EMR Doc Only [id number] 51783 Given 04/18/2020 Moderna Sars-Co v-2 (Cov-19) vacc,100 mcg/ 0.5 mL 12Y+EMR Doc Only [id number] 46100 Given 11/21/2019 Shingrix 93702 Given 07/07/2015 Tdap (Tetanus, diphtheria & acel. pertussis) Adacel or Boostrix 59572 Given 07/19/2014 Zostavax Vaccine 83108 Refused 07/27/2023 Influenza Vac, Split, Preservative Free High Dose Age 65 & > 18348 Refused 07/27/2023 Pneumococcal Conjugate-Pr evnar 20 16378 Refused 07/27/2023 Sarscov2 Vaccin e 50 mcg/0.5 ML For Im Use 12 Yrs And Older 21649 Refused 03/10/2022 Shingrix 35828 Refused 03/10/2022 Pneumococcal Conjugate-Pr evnar 20 98000 Refused 03/10/2022 Influenza Virus Vaccine, Quadrivalent (Cciiv4), Derived From Cell 26516 Refused 03/10/2022 Moderna Sars-Co v-2 (Covid-19) Vaccine, BiValent Booster 12y+ 47444 Refused 03/05/2021 Influenza Vaccine High Do se 0.5ML Age 65 & > 32122 Refused 03/05/2021 Pneumococcal Conjugate-Pr evnar 13 07157 Refused 12/23/2017 Influenza Vacci ne Quadrivalent Preser/Antibiotic Free [place] Use 58346 Refused 09/27/2017 Shingrix 50241 Refused 09/27/2017 Influenza Vacci ne Quadrivalent Preser/Antibiotic Free Im Use Vital Signs Date Vital Result Comment 07/27/2023 9:22am BP Systolic 126 mmHg BP Diastolic 72 mmHg Body Temperature 97.6 F Heart Rate 57 /min Respiratory Rate 16 /min Weight 202.12 lb Weight 91.684 kg Height 65 inches 5'5" BMI (Body Mass Index) 33.6 kg/m2 [place] Body Weight 136 lb 04/28/2023 2:04pm BP Systolic 138 mmHg BP Diastolic 88 mmHg Body Temperature 97.4 F Heart Rate 68 /min Respiratory Rate 14 /min Weight 200.00 lb Weight 90.720 kg Height 65 inches 5'5" BMI (Body Mass Index) 33.3 kg/m2 [place] Body Weight 136 lb Results Test Acquired Date Facility Test Result H/L Range N ote Drug Monitor, Panel 6 W/Confirm Urine 07/27/[address] [facility] [place] [address] Alcohol Metabolites NEGATIVE ng/mL Normal <500 medMATCH [...] mg/dL Normal > or = 20.0 Specific [place] DNR Normal > or = 1.003 pH 4.8 Normal 4.5-9.0 Oxidant NEGATIVE g /mL Normal <200 Abnormal Specimen Validity Test: DNR Normal Drug Monitoring Template [facility] [place] [address] [phone] Notes and Comments (SEE NOTE) 2 Patient Historical Report DNR Normal Laboratory test finding 07/27/[address] [facility] [place] [address] [phone] Enhanced PDF Report [id number] SEE IMAGE 1 See Opiates Notes, L [...] analytical performance characteristics have been determined by [facility]. It has not been cleared or approved by the FDA. This assay has been validated pursuant to the CLIA regulations and is used for clinical purposes. 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 Avoid triggers Symptoms stable * All* New Medication:* Sertraline HCL 50 mg - 1 by mouth every night Functional Status Description No Information Available Mental Status Description No Information Available Referrals Description No Information Available
--- OUTSIDE RECORDS SUMMARY | 2023-10-21 04:17 | External Medical Summary | Continuity of Care Document ---
Author Name Unknown Organization [place] Address [address] [facility] [place] [address] Phone [phone] Care Team Providers Care Road Service Locksmith Name Role Phone [facility] - [facility] Disease Care Team Information Concrete Pipe Machine Operator [phone] [employer] [facility] [place] - Sleep Disorder Diagnostic Care Team Information Concrete Pipe Machine Operator [phone] Problems Active Problems Provider Date Chronic pain [...] Qnty Indications Order ing Provider Date Sertraline [id number] Tablets 1 by mouth every night 90tabs Dilia Ramos MD 07/27/[id number] 1 by mouth every day 90capellis harris MD 11/01/2022 Syringe 2-3 ML3ml Misc use to administer testosterone as prescribed 8units Dilia Ramos MD 08/08/2021 Hwddstrhd198zl Tablets Take 1 Tablet By Mouth Every Day 90tabs I10 Florian Deluca MD 11/21/2020 Hydrocodone Bitartrate/Acetamin -207nc Tablets take 1 tablet my mouth four times daily as needed for severe pain - for continued therapy 120tabs Dilia Ramos MD 10/22/2020 Aspirin-Dipyridamol e [id number] Caps ER 12HR take 1 capsule by mouth twice a day 180dontrell Ramos MD 08/22/2020 Luzwcipljla91au Tablets take 1 tablet by mouth everyday at bedtime 90tabs Dilia Ramos MD 01/27/2020 Vitamin D (Ergocalciferol)1.2 5mg (57147 Ut) Capsules take 1 capsule by mouth one time per week 12dontrell Ramos MD 01/25/2020 Potassium Chloride YI05Luw Tablets ER Take 1 Tablet By Mouth [...] OSKAR Yarbrough 04/07/2021 Injection Kenalog 10 MG [facility] [id number] Adan valente PA-C 02/22/2017 Injection Dexamethasone Sodi um Phosphate, 1 MGInjection Adan Siegel PA-C 02/22/2017 Immunizations CPT Code Status Date Vaccine Lot # [id number] Given 10/31/2020 Shingrix 30620 Given 05/16/2020 Moderna Sars-Co v-2 (Cov-19) vacc,100 mcg/ 0.5 mL 12Y+EMR Doc Only [id number] 96903 Given 04/18/2020 Moderna Sars-Co v-2 (Cov-19) vacc,100 mcg/ 0.5 mL 12Y+EMR Doc Only [id number] 07150 Given 11/21/2019 Shingrix 31798 Given 07/07/2015 Tdap (Tetanus, diphtheria & acel. pertussis) Adacel or Boostrix 01441 Given 07/19/2014 Zostavax Vaccine 94694 Refused 07/27/2023 Influenza Vac, Split, Preservative Free High Dose Age 65 & > 67416 Refused 07/27/2023 Pneumococcal Conjugate-Pr evnar 20 76333 Refused 07/27/2023 Sarscov2 Vaccin e 50 mcg/0.5 ML For Im Use 12 Yrs And Older 18703 Refused 03/10/2022 Shingrix 11712 Refused 03/10/2022 Pneumococcal Conjugate-Pr evnar 20 26472 Refused 03/10/2022 Influenza Virus Vaccine, Quadrivalent (Cciiv4), Derived From Cell 26482 Refused 03/10/2022 Moderna Sars-Co v-2 (Covid-19) Vaccine, BiValent Booster 12y+ 46369 Refused 03/05/2021 Influenza Vaccine High Do se 0.5ML Age 65 & > 71262 Refused 03/05/2021 Pneumococcal Conjugate-Pr evnar 13 90918 Refused 12/23/2017 Influenza Vacci ne Quadrivalent Preser/Antibiotic Free [place] Use 41630 Refused 09/27/2017 Shingrix 47527 Refused 09/27/2017 Influenza Vacci ne Quadrivalent Preser/Antibiotic Free Im Use Vital Signs Date Vital Result Comment 07/27/2023 9:22am BP Systolic 126 mmHg BP Diastolic 72 mmHg Body Temperature 97.6 F Heart Rate 57 /min Respiratory Rate 16 /min Weight 202.12 lb Weight 91.684 kg Height 65 inches 5'5" BMI (Body Mass Index) 33.6 kg/m2 [place] Body Weight 136 lb 04/28/2023 2:04pm BP Systolic 138 mmHg BP Diastolic 88 mmHg Body Temperature 97.4 F Heart Rate 68 /min Respiratory Rate 14 /min Weight 200.00 lb Weight 90.720 kg Height 65 inches 5'5" BMI (Body Mass Index) 33.3 kg/m2 [place] Body Weight 136 lb Results Test Acquired Date Facility Test Result H/L Range [place] Drug Monitor, Panel 6 W/Confirm Urine 07/27/2023 [employer] [place] [address] Alcohol Metabolites NEGATIVE ng/mL Normal <500 medMATCH [...] mg/dL Normal > or = 20.0 Specific [place] DNR Normal > or = 1.003 pH 4.8 Normal 4.5-9.0 Oxidant NEGATIVE g /mL Normal <200 Abnormal Specimen Validity Test: DNR Normal Drug Monitoring Template [facility] [place] [address] [phone] Notes and Comments (SEE NOTE) 2 Patient Historical Report DNR Normal Laboratory test finding 07/27/2023 [facility] [employer] [place] [address] [phone] Enhanced PDF Report [id number] SEE IMAGE 1 See Opiates Notes, L [...] analytical performance characteristics have been determined by [employer]. It has not been cleared or approved by the FDA. This assay has been validated pursuant to the CLIA regulations and is used for clinical purposes. 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 Avoid triggers Symptoms stable * All* New Medication:* Sertraline HCL 50 mg - 1 by mouth every night Functional Status Description No Information Available Mental Status Description No Information Available Referrals Description No Information Available
--- OUTSIDE RECORDS SUMMARY | 2023-10-21 04:17 | External Medical Summary | Continuity of Care Document ---
Author Name Unknown Organization [place] Address [address] [facility] [place] [address] Phone [phone] Care Team Providers Care Medical Facilities Section Director Name Role Phone [facility] Card io Testing - Cardiovascular Disease Care Team Information Stripper Latex [phone] [employer] [facility] Leigh Ann ter of [place] - Sleep Disorder Diagnostic Care Team Information Stripper Latex [phone] Problems Active Problems Provider Date Chronic pain [...] Qnty Indications Order ing Provider Date Sertraline ULI38bf Tablets 1 by mouth every night 90tabs Dilia Ramos MD 07/27/[address] 1 by mouth every day 90capellis harris MD 11/01/2022 Syringe 2-3 ML3ml Misc use to administer testosterone as prescribed 8units Dilia Ramos MD 08/08/2021 Vxsvygajc361yt Tablets Take 1 Tablet By Mouth Every Day 90tabs I10 Florian Deluca MD 11/21/2020 Hydrocodone Bitartrate/Acetamin -809dn Tablets take 1 tablet my mouth four times daily as needed for severe pain - for continued therapy 120tabs Dilia Ramos MD 10/22/2020 Aspirin-Dipyridamol e [id number] Caps ER 12HR take 1 capsule by mouth twice a day 180dontrell Ramso MD 08/22/2020 Mxvwvitxneh77xj Tablets take 1 tablet by mouth everyday at bedtime 90tabs Dilia Ramos MD 01/27/2020 Vitamin D (Ergocalciferol)1.2 5mg (15630 Ut) Capsules take 1 capsule by mouth one time per week 12dontrell Ramos MD 01/25/2020 Potassium Chloride BC98Nzq Tablets ER Take 1 Tablet By Mouth [...] OSKAR Yarbrough 04/07/2021 Injection Kenalog 10 MG [facility] [id number] Adan valente PA-C 02/22/2017 Injection Dexamethasone Sodi um Phosphate, 1 MGInjection Adan Siegel PA-C 02/22/2017 Immunizations CPT Code Status Date Vaccine Lot # [id number] Given 10/31/2020 Shingrix 72915 Given 05/16/2020 Moderna Sars-Co v-2 (Cov-19) vacc,100 mcg/ 0.5 mL 12Y+EMR Doc Only [id number] 92983 Given 04/18/2020 Moderna Sars-Co v-2 (Cov-19) vacc,100 mcg/ 0.5 mL 12Y+EMR Doc Only [id number] 91705 Given 11/21/2019 Shingrix 30815 Given 07/07/2015 Tdap (Tetanus, diphtheria & acel. pertussis) Adacel or Boostrix 97906 Given 07/19/2014 Zostavax Vaccine 90664 Refused 07/27/2023 Influenza Vac, Split, Preservative Free High Dose Age 65 & > 51734 Refused 07/27/2023 Pneumococcal Conjugate-Pr evnar 20 07243 Refused 07/27/2023 Sarscov2 Vaccin e 50 mcg/0.5 ML For Im Use 12 Yrs And Older 55410 Refused 03/10/2022 Shingrix 78941 Refused 03/10/2022 Pneumococcal Conjugate-Pr evnar 20 99540 Refused 03/10/2022 Influenza Virus Vaccine, Quadrivalent (Cciiv4), Derived From Cell 67737 Refused 03/10/2022 Moderna Sars-Co v-2 (Covid-19) Vaccine, BiValent Booster 12y+ 29947 Refused 03/05/2021 Influenza Vaccine High Do se 0.5ML Age 65 & > 46722 Refused 03/05/2021 Pneumococcal Conjugate-Pr evnar 13 97466 Refused 12/23/2017 Influenza Vacci ne Quadrivalent Preser/Antibiotic Free [place] Use 96015 Refused 09/27/2017 Shingrix 65473 Refused 09/27/2017 Influenza Vacci ne Quadrivalent Preser/Antibiotic Free Im Use Vital Signs Date Vital Result Comment 07/27/2023 9:22am BP Systolic 126 mmHg BP Diastolic 72 mmHg Body Temperature 97.6 F Heart Rate 57 /min Respiratory Rate 16 /min Weight 202.12 lb Weight 91.684 kg Height 65 inches 5'5" BMI (Body Mass Index) 33.6 kg/m2 [place] Body Weight 136 lb 04/28/2023 2:04pm BP Systolic 138 mmHg BP Diastolic 88 mmHg Body Temperature 97.4 F Heart Rate 68 /min Respiratory Rate 14 /min Weight 200.00 lb Weight 90.720 kg Height 65 inches 5'5" BMI (Body Mass Index) 33.3 kg/m2 [place] Body Weight 136 lb Procedures Date Code [...] Code Description Provider 04/28/2023 Z00.01 Encounter for [facility] adult medical examination with abnormal findings Adan Siegel PA-C 04/28/2023 F33.1 Major depressive disorder, recurrent, moderate Adan Sigeel PA-C 04/28/2023 I71.40 Abdominal aortic aneurysm, without [...]
--- OUTSIDE RECORDS SUMMARY | 2023-10-21 04:17 | External Medical Summary | Continuity of Care Document ---
Author Name Unknown Organization [place] Address [address] [facility] [place] [address] Phone [phone] Care Team Providers Care Electronic Musical Instrument Repairer Name Role Phone [facility] - Cardiovascular Disease Care Team Information Silica Spray Mixer [phone] [employer] [facility] [place] of [place] - Sleep Disorder Diagnostic Care Team Information Silica Spray Mixer [phone] Problems Active Problems Provider Date Chronic pain [...] Qnty Indications Order ing Provider Date Sertraline MLA97jj Tablets 1 by mouth every night 90tabs Dilia Ramos MD 07/27/[address] 1 by mouth every day 90capellis harris MD 11/01/2022 Syringe 2-3 ML3ml Misc use to administer testosterone as prescribed 8units Dilia Ramos MD 08/08/2021 Hymbdwupt931bl Tablets Take 1 Tablet By Mouth Every Day 90tabs I10 Florian Deluca MD 11/21/2020 Hydrocodone Bitartrate/Acetamin lkaqe97-160pk Tablets take 1 tablet my mouth four times daily as needed for severe pain - for continued therapy 120tabs Dilia Ramos MD 10/22/2020 Aspirin-Dipyridamol e SC43-914ip Caps ER 12HR take 1 capsule by mouth twice a day 180dontrell Ramos MD 08/22/2020 Orzztfrddoc52bn Tablets take 1 tablet by mouth everyday at bedtime 90tabs Dilia Ramos MD 01/27/2020 Vitamin D (Ergocalciferol)1.2 5mg (33838 Ut) Capsules take 1 capsule by mouth one time per week 12dontrell Ramos MD 01/25/2020 Potassium Chloride QS27Fdd Tablets ER Take 1 Tablet By Mouth [...] OSKAR Yarbrough 04/07/2021 Injection Kenalog 10 MG [facility] [id number] Adan valente PA-C 02/22/2017 Injection Dexamethasone Sodi um Phosphate, 1 MGInjection Adan Siegel PA-C 02/22/2017 Immunizations CPT Code Status Date Vaccine Lot # [id number] Given 10/31/2020 Shingrix 61535 Given 05/16/2020 Moderna Sars-Co v-2 (Cov-19) vacc,100 mcg/ 0.5 mL 12Y+EMR Doc Only [id number] 77339 Given 04/18/2020 Moderna Sars-Co v-2 (Cov-19) vacc,100 mcg/ 0.5 mL 12Y+EMR Doc Only [id number] 81209 Given 11/21/2019 Shingrix 44604 Given 07/07/2015 Tdap (Tetanus, diphtheria & acel. pertussis) Adacel or Boostrix 82229 Given 07/19/2014 Zostavax Vaccine 95423 Refused 07/27/2023 Influenza Vac, Split, Preservative Free High Dose Age 65 & > 32560 Refused 07/27/2023 Pneumococcal Conjugate-Pr evnar 20 12972 Refused 07/27/2023 Sarscov2 Vaccin e 50 mcg/0.5 ML For Im Use 12 Yrs And Older 57881 Refused 03/10/2022 Shingrix 14494 Refused 03/10/2022 Pneumococcal Conjugate-Pr evnar 20 57911 Refused 03/10/2022 Influenza Virus Vaccine, Quadrivalent (Cciiv4), Derived From Cell 46846 Refused 03/10/2022 Moderna Sars-Co v-2 (Covid-19) Vaccine, BiValent Booster 12y+ 53852 Refused 03/05/2021 Influenza Vaccine High Do se 0.5ML Age 65 & > 90917 Refused 03/05/2021 Pneumococcal Conjugate-Pr evnar 13 41935 Refused 12/23/2017 Influenza Vacci ne Quadrivalent Preser/Antibiotic Free Im Use 24285 Refused 09/27/2017 Shingrix 86586 Refused 09/27/2017 Influenza Vacci ne Quadrivalent Preser/Antibiotic Free Im Use Vital Signs Date Vital Result Comment 07/27/2023 9:22am BP Systolic 126 mmHg BP Diastolic 72 mmHg Body Temperature 97.6 F Heart Rate 57 /min Respiratory Rate 16 /min Weight 202.12 lb Weight 91.684 kg Height 65 inches 5'5" BMI (Body Mass Index) 33.6 kg/m2 [place] Body Weight 136 lb 04/28/2023 2:04pm BP Systolic 138 mmHg BP Diastolic 88 mmHg Body Temperature 97.4 F Heart Rate 68 /min Respiratory Rate 14 /min Weight 200.00 lb Weight 90.720 kg Height 65 inches 5'5" BMI (Body Mass Index) 33.3 kg/m2 [place] Body Weight 136 lb Procedures Date Code [...] Code Description Provider 04/28/2023 Z00.01 Encounter for [facility] adult medical examination with abnormal findings [...]
[2023-10-21 04:18] LABS: Enteropathogenic E.coli (EPEC) DETECTED (NotDetected)
[2023-10-21] MEDS: AMPICILLIN/SULBACTAM SOD 3,000 MG/100 ML BAG IV SCH (05:48)
[2023-10-21] MEDS: AZITHROMYCIN 500 MG in DEXTROSE 5% 250 ML IV STA (06:06)
[2023-10-21 06:45] LABS: BUN Creatinine Ratio 32.4 (10-20); Calcium 8.2 mg/dl (8.6-10.3); Creatinine Clr Calc Pharmacy 47.9 ml/min; Est GFR (African American) 55.2 ml/min; Est GFR (Non-African American) 47.6 ml/min; Magnesium 2.1 mg/dl (1.7-2.4); Potassium 2.9 mmol/L (3.5-5.1)
[2023-10-21 06:49] LABS: Basophils # (auto) 0.03 K/uL (0.00-0.20); Basophils % (auto) 0.6 %; Eosinophils # (auto) 0.01 K/uL (0.00-0.50); Eosinophils % (auto) 0.2 %; Hematocrit (blood only) 39.9 % (42.0-52.0); Hemoglobin 13.9 g/dl (14.0-18.0); Immature Granulocytes # (auto) 0.01 K/uL (0.01-0.20); Immature Granulocytes % (auto) 0.2 %; Lymphocytes # (auto) 0.56 K/uL (1.20-3.40); Lymphocytes % (auto) 12.1 %; Mean Corpuscular Hemoglobin 29.8 pg (25.0-34.0); Mean Corpuscular Hgb Conc 34.8 g/dL (32.0-36.0); Mean Corpuscular Volume 85.6 fL (80.0-100.0); Mean Platelet Volume 9.5 fL (9.4-12.4); Monocytes # (auto) 0.43 K/uL (0.11-0.59); Monocytes % (auto) 9.3 %; Neutrophils # (auto) 3.59 K/uL (1.40-6.50); Neutrophils % (auto) 77.6 %; Platelet Count 101 K/uL (130-400); RDW Coefficient of Variation 13.8 % (11.5-14.5); RDW Standard Deviation 42.5 fL (36.4-46.3); Red Blood Count 4.66 M/uL (4.70-6.10); White Blood Count 4.63 K/ul (4.8-10.8)
[2023-10-21 06:54] LABS: Troponin I High Sensitivity 219.1 pg/ml (0-20)
[2023-10-21 07:03] LABS: Estimated Average Glucose 103 mg/dl; Hemoglobin A1C 5.2 % (4.5-5.6)
[2023-10-21] MEDS: IPRATROPIUM BROMIDE NEB SOLN 0.02% 0.5MG/2.5ML VIAL INH STA (07:19)
[2023-10-21] MEDS: LEVALBUTEROL 1.25 MG/3 ML NEB NEB STA (07:20)
--- NOTE | 2023-10-21 07:23 | XRay Report ---
XR chest 1V portable HISTORY: 68 years-old Male vomiting acute nausea with vomiting and chest pain COMPARISON: 11/09/2021 TECHNIQUE: AP view of the chest FINDINGS: Cardiac silhouette is within normal limits. The lungs are clear. No pneumothorax or pleural effusion. The bones appear intact. IMPRESSION: No acute process. ACT 112: Negative or not required by law. The above report was generated using voice recognition software. It may contain grammatical, syntax o r spelling errors. Electronically signed by: Rl Boland M.D. 10/21/2023 7:22 AM
[2023-10-21] MEDS: ROSUVASTATIN CALCIUM 20 MG TAB PO SCH (08:45)
[2023-10-21] MEDS: amLODIPine BESYLATE 5 MG TAB PO SCH (08:46)
[2023-10-21] MEDS: rOPINIRole HCL 2 MG TABLET PO SCH (08:46)
--- NOTE | 2023-10-21 09:31 | Gastrointestinal Consultation ---
Date of Consultation October 21, 2023 Assessment & Plan (1) Nausea & vomitin68 year old male admitted with nausea/vomiting/diarrhea and coffee ground emesis w/ stool testing revealing EPEC infection 1. Coffee ground emesis - DDX discussed: esophagitis vs MWT vs other - No further episodes of coffee ground emesis - Stools documented as brown - HGB 13.9 - Conservative measures for now - NPO for bowel rest - Trend HGB - Monitor GI output - Transfuse PRN per primary team - IV PPI BID - In the event of ongoing or acute GI bleeding, we are happy to arrange diagnostic EGD. However, would recommend medical optimization prior to elective endoscopy. 2. EPEC infection - Supportive measures - Electrolyte replacements per primary team - Bowel rest - IVF - Antiemetics PRN - Azithromycin can be considered for severe or persistent diarrhea, however, ABX not typically indicated for EPEC infection I spent a total of 77 minutes on the date of service in review of patient's record, and previously obtained information in person and appropriate medical visit, discussion and education of plan, with patient and/or caregiver, placing orders for tests/referral/procedures as medically necessary and documentation of pertinent clinical information in patient's medical records for their visit today. Thank you for allowing us to participate in the care of this patient. Please call with any acute changes, questions or concerns. Please see addendum below with additional recommendation from my supervising physician. Supervising Physician Co-Signing Physician Notes I saw and examined this patient with our nurse practitioner and agree with her assessment and plan. Clinical picture consistent with E. coli enteritis. Doubt significant GI blood loss. Suspect coffee-ground emesis may have been due to vomiting possible esophagitis less likely a significant Dinorah-Alves tear. Will continue to treat conservatively with IV PPI unless he demonstrates more overt bleeding. Hemodynamically stable. Continue symptomatic relief for his enteritis. History of Present Illness Reason for Consultation: UGI bleeding Requesting Physician: Christel Attending Physician: Parviz Kearney DO History of Present Illness 68 year old male with history of AAA, hypertension, hyperlipidemia, MEET as per records, GERD, chronic thrombocytopenia, RLS, borderline diabetes admitted through the ED w/ reports of nausea/vomiting/diarrhea and coffee ground emesis - GI was asked to evaluate. Pt was seen and evaluated, chart reviewed. He suggests symptoms started about two days ago - fever, chills, nausea/vomiting and loose stools. He became concerend as symptoms persisted and his emesis appeared coffee ground in appearance. Suggest this occured a few times yesterday. No hematemesis. Stools have appeared darker as well. Documented by staff is cesar colored, loose stool. HGB 13.9 BUN 48 INR 1.1 K 2.9 BUN 48 / QA ARCHITECT 1.48 Troponin 42 --> 128 --> 191 --> 219 Stool testing positive for EPEC CTAP 2023: Moderate fluid distention of the stomach with retrograde fluid filling the small hiatal hernia and distal thoracic esophagus. No asymmetric mucosal thickening. The clinical significance of this finding is indeterminant. 2. No evidence for bowel obstruction with prominent fluid throughout the small bowel and throughout the colon without focal asymmetric mucosal thickening or diverticulitis. Findings are most consistent with enterocolitis and diarrheal disease. No free intraperitoneal fluid or pneumoperitoneum. EGD/Colonoscopy: he notes years ago, not sure where Allergies Allergy/AdvReac Type Severity Reaction Status Date / Time No Known Allergies Allergy Verified 10/20/23 23:51 Home Medications Medication Instructions Recorded Confirmed Type hydrochlorothiazide 50 mg tablet 50 mg PO QAM 01/05/20 10/20/23 History hydrocodone 10 mg-acetaminophen 1 tab PO QID PRN Pain 01/05/20 10/20/23 History 325 mg tablet rosuvastatin 40 mg tablet 40 mg PO DAILY 01/05/20 10/20/23 History valsartan 320 mg tablet 320 mg PO QAM 01/05/20 10/20/23 History amlodipine 5 mg tablet 5 mg PO QAM 10/20/23 10/20/23 History omeprazole 40 mg capsule,delayed 40 mg PO QAM 10/20/23 10/20/23 History release potassium chloride 20 mEq 20 meq PO QAM 10/20/23 10/20/23 History tablet,extended release(part/cryst) ropinirole 2 mg tablet 2 mg PO TID 10/20/23 10/20/23 History sertraline 50 mg tablet 50 mg PO HS 10/20/23 10/20/23 History spironolactone 25 mg tablet 25 mg PO QAM 10/20/23 10/20/23 History Patient History Medical History AAA (abdominal aortic aneurysm) CVA (cerebral vascular accident) H/O: HTN (hypertension) GERD (gastroesophageal reflux disease) Surgical History No pertinent past surgical history Family History Other Family history non-contributory Social History Smoking Status: Never smoker Tobacco Type: Cigars Second Hand Exposure: No; Do You Dip or Chew Tobacco: No; Hx Alcohol Use: No Hx Substance Use: No Preferred Language: Macedonian Communication Ability: Effective Classified Ad Taker Required: No Beliefs That Will Affect Care: None Current Living Situation: Spouse Other Information That Helps Us Care for You: No Feels Safe at Home: Yes Safety Concerns: Feels Safe At This Time Assistive Devices: Walker Review of Systems Review of Systems: All other findings negative except as noted in HPI. Physical Exam Constitutional: WD/WN, vitals as above Respiratory: normal respiratory effort, lungs clear to auscultation Cardiovascular: Rate/Rhythm: regular rate Gastrointestinal (Abdomen): normal bowel sounds, soft, nontender, no hepatosplenomegaly Skin: no rashes, warm and dry Results & Data Vital Signs (Past 12 Hours) Vital Signs Temp Pulse Pulse Pulse Resp BP BP 10/21/23 09:23 10/21/23 07:54 105 H 10/21/23 07:39 37.1 C 97 H 18 130/74 10/21/23 01:37 89 10/21/23 01:35 10/21/23 01:35 36.4 C L 97 H 18 122/75 10/21/23 00:55 94 H 20 124/70 10/21/23 00:00 98 H 22 94/59 L 10/20/23 23:06 95 H 10/20/23 22:00 98 H 22 108/61 10/20/23 21:45 100 H 20 133/84 Pulse Ox O2 Del Method 10/21/23 09:23 Room Air 10/21/23 07:54 10/21/23 07:39 94 Room Air 10/21/23 01:37 10/21/23 01:35 Room Air 10/21/23 01:35 95 Room Air 08/15/24 00:55 94 10/21/23 00:00 94 Room Air 10/20/23 23:06 10/20/23 22:00 94 Room Air 10/20/23 21:45 96 Room Air Laboratory Results 10/21/23 10/21/23 10/21/23 Range/Units 06:05 03:23 02:05 WBC 4.63 L (4.8-10.8) K/ul RBC 4.66 L (4.70-6.10) M/uL Hgb 13.9 L (14.0-18.0) g/dl Hct 39.9 L (42.0-52.0) % MCV 85.6 (80.0-100.0) fL MCH 29.8 (25.0-34.0) pg MCHC 34.8 (32.0-36.0) g/dL RDW Std Deviation 42.5 (36.4-46.3) fL RDW Coeff of Zander 13.8 (11.5-14.5) % Plt Count 101 L (130-400) K/uL MPV 9.5 (9.4-12.4) fL Immature Gran % (Auto) 0.2 % Neut % (Auto) 77.6 % Lymph % (Auto) 12.1 % Hawkins % (Auto) 9.3 % Eos % (Auto) 0.2 % Baso % (Auto) 0.6 % Neut # (Auto) 3.59 (1.40-6.50) K/uL Lymph # (Auto) 0.56 L (1.20-3.40) K/uL Hawkins # (Auto) 0.43 (0.11-0.59) K/uL Eos # (Auto) 0.01 (0.00-0.50) K/uL Baso # (Auto) 0.03 (0.00-0.20) K/uL Immature Gran # (Auto) 0.01 (0.01-0.20) K/uL PT (9.0-12.0) Seconds INR (0.9-1.1) VBG pH (7.36-7.41) VBG pCO2 (38-50) mmHg VBG pO2 mmHg VBG HCO3 mmol/L VBG O2 Saturation % VBG Base Excess mEq/L Sodium 137 (136-145) mmol/L Potassium 2.9 L (3.5-5.1) mmol/L Chloride 110 H (98-107) mmol/L Carbon Dioxide 16 L (21-32) mmol/L Anion Gap 11 (3-11) BUN 48 H (6-23) mg/dl Creatinine 1.48 H (0.6-1.4) mg/dl Est Cr Clr Drug Dosing 47.9 Est GFR ( Amer) 55.2 ml/min Est GFR (Non-Af Amer) 47.6 ml/min BUN/Creatinine Ratio 32.4 H (10-20) Glucose 161 H (70-99(Fasting)) mg/dl Estimat Average Glucose mg/dl Hemoglobin A1c (4.5-5.6) % Calcium 8.2 L (8.6-10.3) mg/dl Magnesium 2.1 (1.7-2.4) mg/dl Total Bilirubin (0.2-1.0) mg/dl AST (13-39) U/L ALT (7-52) U/L Alkaline Phosphatase (34-104) U/L Troponin I High Sens 219.1 H* (0-20) pg/ml Total Protein (6.0-8.3) gm/dl Albumin (3.4-5.0) gm/dl Globulin (2.5-4.0) gm/dl Albumin/Globulin Ratio (0.9-2) Urine Color Yellow Urine Appearance Clear (Clear) Urine pH 5.0 (4.5-7.5) Ur Specific [place] > 1.045 H (1.000-1.030) Urine Protein Trace H (Negative) Urine Glucose (UA) Negative (Negative) Urine Ketones Negative (Negative) Urine Blood Negative (Negative) Urine Nitrite Negative (Negative) Urine Bilirubin Negative (Negative) Urine Urobilinogen Negative (Negative) Ur Leukocyte Esterase Negative (Negative) Urine WBC (Auto) 0-5 (0-5) /hpf Urine RBC (Auto) 0-2 (0-2) /hpf U Hyaline Cast (Auto) 3-5 H (0-2) /lpf U Epithel Cells (Auto) 0-2 (0-2) /hpf Urine Bacteria (Auto) None Seen (None Seen) Stl C. cayetanensis PCR Not Detected (NotDetected) Stool Rotavirus A PCR Not Detected (NotDetected) Stl Adenov F 40/41 PCR Not Detected (NotDetected) Stool Astrovirus (PCR) Not Detected (NotDetected) Stool Campylobacter PCR Not Detected (NotDetected) Stl C. diff Tox B Gene Negative Cdiff Gene (Neg) Stool Cryptosporidium PCR Not Detected (NotDetected) Stl E.coli Shiga Tox PCR Not Detected (NotDetected) Stl Enterotoxigenic E PCR Not Detected (NotDetected) Stool EPEC (PCR) DETECTED A* (NotDetected) Stool EAEC (PCR) Not Detected (NotDetected) Stl E. histolytica PCR Not Detected (NotDetected) Stool Giardia Lamblia PCR Not Detected (NotDetected) Stool Salmonella PCR Not Detected (NotDetected) Stool Sapovirus (PCR) Not Detected (NotDetected) Stl P. shigelloides PCR Not Detected (NotDetected) Stl Shigella/EIEC PCR Not Detected (NotDetected) St Y.enterocolitica PCR Not Detected (NotDetected) Stool Vibrio (PCR) Not Detected (NotDetected) Stl Vibrio cholerae PCR Not Detected (NotDetected) Stl Norovirus GI/GII PCR Not Detected (NotDetected) Adenovirus (PCR) (NotDetected) B. pertussis DNA (PCR) (NotDetected) B.parapertussis DNA PCR (NotDetected) C. pneumoniae DNA (PCR) (NotDetected) Coronavirus OC43 (PCR) (NotDetected) Coronavirus HKU1 (PCR) (NotDetected) Coronavirus 229E (PCR) (NotDetected) SARS-CoV-2 (PCR) (NotDetected) Coronavirus NL63 (PCR) (NotDetected) Human Metapneumovir PCR (NotDetected) Influenza Type A (PCR) (NotDetected) Influenza Type B (PCR) (NotDetected) M. pneumoniae (PCR) (NotDetected) Parainfluenza 1 (PCR) (NotDetected) Parainfluenza 2 (PCR) (NotDetected) Parainfluenza 3 (PCR) (NotDetected) Parainfluenza 4 (PCR) (NotDetected) RSV (PCR) (NotDetected) Entero/Rhino (PCR) (NotDetected) Blood Type Antibody Screen 10/21/23 10/20/23 10/20/23 Range/Units 00:18 21:42 19:20 WBC (4.8-10.8) K/ul RBC (4.70-6.10) M/uL Hgb 15.0 (14.0-18.0) g/dl Hct 42.3 (42.0-52.0) % MCV (80.0-100.0) fL MCH (25.0-34.0) pg MCHC (32.0-36.0) g/dL RDW Std Deviation (36.4-46.3) fL RDW Coeff of Zander (11.5-14.5) % Plt Count (130-400) K/uL MPV (9.4-12.4) fL Immature Gran % (Auto) % Neut % (Auto) % Lymph % (Auto) % Hawkins % (Auto) % Eos % (Auto) % Baso % (Auto) % Neut # (Auto) (1.40-6.50) K/uL Lymph # (Auto) (1.20-3.40) K/uL Hawkins # (Auto) (0.11-0.59) K/uL Eos # (Auto) (0.00-0.50) K/uL Baso # (Auto) (0.00-0.20) K/uL Immature Gran # (Auto) (0.01-0.20) K/uL PT (9.0-12.0) Seconds INR (0.9-1.1) VBG pH 7.38 (7.36-7.41) VBG pCO2 29 L (38-50) mmHg VBG pO2 67 mmHg VBG HCO3 17 mmol/L VBG O2 Saturation 93.8 % VBG Base Excess -6.6 mEq/L Sodium (136-145) mmol/L Potassium (3.5-5.1) mmol/L Chloride (98-107) mmol/L Carbon Dioxide (21-32) mmol/L Anion Gap (3-11) BUN (6-23) mg/dl Creatinine (0.6-1.4) mg/dl Est Cr Clr Drug Dosing Est GFR ( Amer) ml/min Est GFR (Non-Af Amer) ml/min BUN/Creatinine Ratio (10-20) Glucose (70-99(Fasting)) mg/dl Estimat Average Glucose mg/dl Hemoglobin A1c (4.5-5.6) % Calcium (8.6-10.3) mg/dl Magnesium (1.7-2.4) mg/dl Total Bilirubin (0.2-1.0) mg/dl AST (13-39) U/L ALT (7-52) U/L Alkaline Phosphatase (34-104) U/L Troponin I High Sens 191.8 H* D 128.5 H* D (0-20) pg/ml Total Protein (6.0-8.3) gm/dl Albumin (3.4-5.0) gm/dl Globulin (2.5-4.0) gm/dl Albumin/Globulin Ratio (0.9-2) Urine Color Urine Appearance (Clear) Urine pH (4.5-7.5) Ur Specific [place] (1.000-1.030) Urine Protein (Negative) Urine Glucose (UA) (Negative) Urine Ketones (Negative) Urine Blood (Negative) Urine Nitrite (Negative) Urine Bilirubin (Negative) Urine Urobilinogen (Negative) Ur Leukocyte Esterase (Negative) Urine WBC (Auto) (0-5) /hpf Urine RBC (Auto) (0-2) /hpf U Hyaline Cast (Auto) (0-2) /lpf U Epithel Cells (Auto) (0-2) /hpf Urine Bacteria (Auto) (None Seen) Stl C. cayetanensis PCR (NotDetected) Stool Rotavirus A PCR (NotDetected) Stl Adenov F 40/41 PCR (NotDetected) Stool Astrovirus (PCR) (NotDetected) Stool Campylobacter PCR (NotDetected) Stl C. diff Tox B Gene (Neg) Stool Cryptosporidium PCR (NotDetected) Stl E.coli Shiga Tox PCR (NotDetected) Stl Enterotoxigenic E PCR (NotDetected) Stool EPEC (PCR) (NotDetected) Stool EAEC (PCR) (NotDetected) Stl E. histolytica PCR (NotDetected) Stool Giardia Lamblia PCR (NotDetected) Stool Salmonella PCR (NotDetected) Stool Sapovirus (PCR) (NotDetected) Stl P. shigelloides PCR (NotDetected) Stl Shigella/EIEC PCR (NotDetected) St Y.enterocolitica PCR (NotDetected) Stool Vibrio (PCR) (NotDetected) Stl Vibrio cholerae PCR (NotDetected) Stl Norovirus GI/GII PCR (NotDetected) Adenovirus (PCR) Not Detected (NotDetected) B. pertussis DNA (PCR) Not Detected (NotDetected) B.parapertussis DNA PCR Not Detected (NotDetected) C. pneumoniae DNA (PCR) Not Detected (NotDetected) Coronavirus OC43 (PCR) Not Detected (NotDetected) Coronavirus HKU1 (PCR) Not Detected (NotDetected) Coronavirus 229E (PCR) Not Detected (NotDetected) SARS-CoV-2 (PCR) Not Detected (NotDetected) Coronavirus NL63 (PCR) Not Detected (NotDetected) Human Metapneumovir PCR Not Detected (NotDetected) Influenza Type A (PCR) Not Detected (NotDetected) Influenza Type B (PCR) Not Detected (NotDetected) M. pneumoniae (PCR) Not Detected (NotDetected) Parainfluenza 1 (PCR) Not Detected (NotDetected) Parainfluenza 2 (PCR) Not Detected (NotDetected) Parainfluenza 3 (PCR) Not Detected (NotDetected) Parainfluenza 4 (PCR) Not Detected (NotDetected) RSV (PCR) Not Detected (NotDetected) Entero/Rhino (PCR) Not Detected (NotDetected) Blood Type O Positive Antibody Screen NEGATIVE 10/20/23 Range/Units 19:00 WBC 5.78 (4.8-10.8) K/ul RBC 5.56 (4.70-6.10) M/uL Hgb 16.5 (14.0-18.0) g/dl Hct 46.3 (42.0-52.0) % MCV 83.3 (80.0-100.0) fL MCH 29.7 (25.0-34.0) pg MCHC 35.6 (32.0-36.0) g/dL RDW Std Deviation 39.9 (36.4-46.3) fL RDW Coeff of Zander 13.2 (11.5-14.5) % Plt Count 124 L (130-400) K/uL MPV 9.5 (9.4-12.4) fL Immature Gran % (Auto) 0.2 % Neut % (Auto) 85.4 % Lymph % (Auto) 8.3 % Hawkins % (Auto) 5.2 % Eos % (Auto) 0.2 % Baso % (Auto) 0.7 % Neut # (Auto) 4.94 (1.40-6.50) K/uL Lymph # (Auto) 0.48 L (1.20-3.40) K/uL Hawkins # (Auto) 0.30 (0.11-0.59) K/uL Eos # (Auto) 0.01 (0.00-0.50) K/uL Baso # (Auto) 0.04 (0.00-0.20) K/uL Immature Gran # (Auto) 0.01 (0.01-0.20) K/uL PT 11.9 (9.0-12.0) Seconds INR 1.1 (0.9-1.1) VBG pH (7.36-7.41) VBG pCO2 (38-50) mmHg VBG pO2 mmHg VBG HCO3 mmol/L VBG O2 Saturation % VBG Base Excess mEq/L Sodium 138 (136-145) mmol/L Potassium 2.5 L* (3.5-5.1) mmol/L Chloride 105 (98-107) mmol/L Carbon Dioxide 16 L (21-32) mmol/L Anion Gap 17 H (3-11) BUN 37 H (6-23) mg/dl Creatinine 1.69 H (0.6-1.4) mg/dl Est Cr Clr Drug Dosing Not Reportable Est GFR ( Amer) 47.0 ml/min Est GFR (Non-Af Amer) 40.5 ml/min BUN/Creatinine Ratio 21.9 H (10-20) Glucose 161 H (70-99(Fasting)) mg/dl Estimat Average Glucose 103 mg/dl Hemoglobin A1c 5.2 (4.5-5.6) % Calcium 9.9 (8.6-10.3) mg/dl Magnesium 1.4 L (1.7-2.4) mg/dl Total Bilirubin 1.6 H (0.2-1.0) mg/dl AST 18 (13-39) U/L ALT 15 (7-52) U/L Alkaline Phosphatase 68 (34-104) U/L Troponin I High Sens 42.2 H (0-20) pg/ml Total Protein 8.0 (6.0-8.3) gm/dl Albumin 4.8 (3.4-5.0) gm/dl Globulin 3.2 (2.5-4.0) gm/dl Albumin/Globulin Ratio 1.5 (0.9-2) Urine Color Urine Appearance (Clear) Urine pH (4.5-7.5) Ur Specific [place] (1.000-1.030) Urine Protein (Negative) Urine Glucose (UA) (Negative) Urine Ketones (Negative) Urine Blood (Negative) Urine Nitrite (Negative) Urine Bilirubin (Negative) Urine Urobilinogen (Negative) Ur Leukocyte Esterase (Negative) Urine WBC (Auto) (0-5) /hpf Urine RBC (Auto) (0-2) /hpf U Hyaline Cast (Auto) (0-2) /lpf U Epithel Cells (Auto) (0-2) /hpf Urine Bacteria (Auto) (None Seen) Stl C. cayetanensis PCR (NotDetected) Stool Rotavirus A PCR (NotDetected) Stl Adenov F 40/41 PCR (NotDetected) Stool Astrovirus (PCR) (NotDetected) Stool Campylobacter PCR (NotDetected) Stl C. diff Tox B Gene (Neg) Stool Cryptosporidium PCR (NotDetected) Stl E.coli Shiga Tox PCR (NotDetected) Stl Enterotoxigenic E PCR (NotDetected) Stool EPEC (PCR) (NotDetected) Stool EAEC (PCR) (NotDetected) Stl E. histolytica PCR (NotDetected) Stool Giardia Lamblia PCR (NotDetected) Stool Salmonella PCR (NotDetected) Stool Sapovirus (PCR) (NotDetected) Stl P. shigelloides PCR (NotDetected) Stl Shigella/EIEC PCR (NotDetected) St Y.enterocolitica PCR (NotDetected) Stool Vibrio (PCR) (NotDetected) Stl Vibrio cholerae PCR (NotDetected) Stl Norovirus GI/GII PCR (NotDetected) Adenovirus (PCR) (NotDetected) B. pertussis DNA (PCR) (NotDetected) B.parapertussis DNA PCR (NotDetected) C. pneumoniae DNA (PCR) (NotDetected) Coronavirus OC43 (PCR) (NotDetected) Coronavirus HKU1 (PCR) (NotDetected) Coronavirus 229E (PCR) (NotDetected) SARS-CoV-2 (PCR) (NotDetected) Coronavirus NL63 (PCR) (NotDetected) Human Metapneumovir PCR (NotDetected) Influenza Type A (PCR) (NotDetected) Influenza Type B (PCR) (NotDetected) M. pneumoniae (PCR) (NotDetected) Parainfluenza 1 (PCR) (NotDetected) Parainfluenza 2 (PCR) (NotDetected) Parainfluenza 3 (PCR) (NotDetected) Parainfluenza 4 (PCR) (NotDetected) RSV (PCR) (NotDetected) Entero/Rhino (PCR) (NotDetected) Blood Type Antibody Screen PG Care Time/CCT Total # of Minutes Spent Total Time Spent with Patient: Total time spent is greater than 50% in coordination of care (as documented) at patient's floor/unit and/or counseling patient: Coding Level of Care Code 99022 INT INP/OBS CARE 3/75MIN Diagnoses Nausea and vomiting, unspecified vomiting type R11.2 Vomiting type: unspecified (1) Nausea & vomiting Vomiting type: unspecified Qualified Code(s): R11.2 - Nausea with vomiting, unspecified
--- NOTE | 2023-10-21 11:50 | Cardiology Consultation ---
Date of Consultation October 21, 2023 Assessment & Plan (1) UGIB (upper gastrointestinal bleed): (2) Nausea & vomiting: (3) Hypomagnesemia: (4) Acute hypokalemia: (5) Generalized weakness: (6) Elevated troponin: Plan Complex 68-year-old male with longstanding resistant hypertension, hypertensive heart disease, and multiple other problems outlined below. Patient admitted with abdominal pain, nausea, coffee-ground emesis/upper GI bleeding, diarrhea with possible melanotic stools, enteropathogenic Escherichia coli, aspiration pneumonitis. Cardiology consultation requested secondary to elevated high-sensitivity troponin, demand ischemia. Patient without overt angina symptoms. EKG without acute ST segment change. Resting echocardiography with hyperdynamic LV function, EF greater than 70%, normal wall motion. Examination without overt volume overload. Recommendations: 1. Correct hypokalemia, maintain electrolytes. 2. Resume beta-katelin therapy, carvedilol, starting out at 3.125 mg twice per day and titrating as needed/tolerated back to prior to arrival dosing. 3. Continue high intensity statin therapy. 4. Antiplatelet and anticoagulation therapy contraindicated 5. Outpatient stress testing once fully recovered from acute insults Supervising Physician Co-Signing Physician Notes Patient seen and examined, chart, medications, telemetry reviewed. Full assessment and plan on chart and personally endorsed. 68-year-old male with vascular disease but no prior documented coronary artery disease presents with acute GI illness, nausea and abdominal pain, possible GI bleeding. Troponins elevated consistent with demand based ischemia with very hyperdynamic LV function. Acute coronary syndrome not suggested. Anticoagulation contraindicated as above Would restart beta-katelin suspect will be able to rapidly titrate back to baseline as long as blood pressure allows History of Present Illness Reason for Consultation: Elevated Troponin Requesting Physician: Dr. Parviz Kearney DO Attending Physician: Parviz Kearney DO History of Present Illness Complex 68-year-old male admitted with abdominal pain, nausea, coffee-ground emesis/upper GI bleeding, diarrhea with possible melanotic stools, enteropathogenic Escherichia coli, aspiration pneumonitis. Cardiology consultation requested due to elevated high sensitivity troponin: 42.2 -> 128.5 -> 191.8 -> 219.1 pg/mL October 20, 2023 EKG: Sinus tachycardia 100 bpm with premature supraventricular complexes, right bundle branch block, left anterior fascicular block, LVH. Cannot rule out an old septal infarct. October 21, 2023 EKG: Sinus rhythm at 94 bpm with a first-degree AV block, left anterior fascicular block, LVH October 21, 2023 TTE was technically difficult, revealing hyperdynamic LV function, EF greater than 70%, with moderate concentric LVH, moderate aortic valve sclerosis without significant stenosis, grade 1 diastolic dysfunction. Telemetry: Sinus/sinus tachycardia with occasional atrial ectopy, heart rates in the 90's to low 100's. Chest x-ray: No acute process No chest pain or discomfort. No palpitations. Breathing seems a little more shallow over the last day or so. No syncope. Denies history of CAD, CA, CHF, arrhythmia, heart murmur, rheumatic fever, or scarlet fever. Problem List: Longstanding resistant hypertension treated with 5-6 drug regimen [facility] to [facility] Dyslipidemia History of CVA, on Aggrenox Chart history of peripheral arterial disease Abdominal aortic aneurysm Prediabetes Chronic opioid use Obesity Obstructive sleep apnea, CPAP intolerant Restless leg syndrome Thrombocytopenia Iron deficiency anemia Vitamin D deficiency GERD Erectile dysfunction BPH COPD Vertigo Former smoker Depression Family History: Mother with CAD. Father at 79 with a CVA. Social History: Reformed smoker. Social alcohol. 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 Lives in [place]. Followed by the [facility]. Allergies Allergy/AdvReac Type Severity Reaction Status Date / Time No Known Allergies Allergy Verified 10/20/23 23:51 Home Medications Medication Instructions Recorded Confirmed Type hydrochlorothiazide 50 mg tablet 50 mg PO QAM 01/05/20 10/20/23 History hydrocodone 10 mg-acetaminophen 1 tab PO QID PRN Pain 01/05/20 10/20/23 History 325 mg tablet rosuvastatin 40 mg tablet 40 mg PO DAILY 01/05/20 10/20/23 History valsartan 320 mg tablet 320 mg PO QAM 01/05/20 10/20/23 History amlodipine 5 mg tablet 5 mg PO QAM 10/20/23 10/20/23 History omeprazole 40 mg capsule,delayed 40 mg PO QAM 10/20/23 10/20/23 History release potassium chloride 20 mEq 20 meq PO QAM 10/20/23 10/20/23 History tablet,extended release(part/cryst) ropinirole 2 mg tablet 2 mg PO TID 10/20/23 10/20/23 History sertraline 50 mg tablet 50 mg PO HS 10/20/23 10/20/23 History spironolactone 25 mg tablet 25 mg PO QAM 10/20/23 10/20/23 History Patient History Medical History AAA (abdominal aortic aneurysm) CVA (cerebral vascular accident) H/O: HTN (hypertension) GERD (gastroesophageal reflux disease) Surgical History No pertinent past surgical history Family History Other Family history non-contributory Social History Smoking Status: Never smoker Tobacco Type: Cigars Second Hand Exposure: No; Do You Dip or Chew Tobacco: No; Hx Alcohol Use: No Hx Substance Use: No Preferred Language: Albanian Communication Ability: Effective Training Officer Required: No Beliefs That Will Affect Care: None Current Living Situation: Spouse Other Information That Helps Us Care for You: No Feels Safe at Home: Yes Safety Concerns: Feels Safe At This Time Assistive Devices: Walker Review of Systems Review of Systems: Complete Review of Systems is as stated above, negative, or noncontributory. Physical Exam Physical Exam: General: Alert to person and place. Uncomfortable, + Eructation. HENT: Normocephalic. Atraumatic. Eyes: PER. Conjunctiva pink, sclera clear. Neck: No carotid bruits. No JVD. Heart: Regular at 94 bpm. No murmur. No rub. Lungs: Clear to auscultation. Abdomen: +BS. Epigastric tenderness Extremities: No significant edema. No cyanosis Limited neurological examination is without focal deficits. Pulses: Posterior tibial=2/4. Results & Data Vital Signs (Past 12 Hours) Vital Signs Temp Pulse Pulse Pulse Resp BP BP 10/21/23 11:09 36.4 C L 91 H 18 149/88 H 10/21/23 09:23 10/21/23 07:54 105 H 10/21/23 07:39 37.1 C 97 H 18 130/74 10/21/23 01:37 89 10/21/23 01:35 10/21/23 01:35 36.4 C L 97 H 18 122/75 10/21/23 00:55 94 H 20 124/70 10/21/23 00:00 98 H 22 94/59 L Pulse Ox O2 Del Method 10/21/23 11:09 95 Room Air 10/21/23 09:23 Room Air 10/21/23 07:54 10/21/23 07:39 94 Room Air 10/21/23 01:37 10/21/23 01:35 Room Air 10/21/23 01:35 95 Room Air 10/21/23 00:55 94 10/21/23 00:00 94 Room Air Laboratory Results Cardiac Enzymes 10/20/23 10/20/23 10/21/23 Range/Units 19:00 21:42 00:18 AST 18 (13-39) U/L Troponin I High Sens 42.2 H 128.5 H* D 191.8 H* D (0-20) pg/ml 10/21/23 Range/Units 06:05 AST (13-39) U/L Troponin I High Sens 219.1 H* (0-20) pg/ml Coagulation 10/20/23 Range/Units 19:00 PT 11.9 (9.0-12.0) Seconds CBC 10/20/23 10/21/23 10/21/23 Range/Units 19:00 00:18 06:05 WBC 5.78 4.63 L (4.8-10.8) K/ul RBC 5.56 4.66 L (4.70-6.10) M/uL Hgb 16.5 15.0 13.9 L (14.0-18.0) g/dl Hct 46.3 42.3 39.9 L (42.0-52.0) % Plt Count 124 L 101 L (130-400) K/uL Neut # (Auto) 4.94 3.59 (1.40-6.50) K/uL Lymph # (Auto) 0.48 L 0.56 L (1.20-3.40) K/uL [place] # (Auto) 0.30 0.43 (0.11-0.59) K/uL Eos # (Auto) 0.01 0.01 (0.00-0.50) K/uL Baso # (Auto) 0.04 0.03 (0.00-0.20) K/uL Comprehensive Metabolic Panel 10/20/23 10/21/23 Range/Units 19:00 06:05 Sodium 138 137 (136-145) mmol/L Potassium 2.5 L* 2.9 L (3.5-5.1) mmol/L Chloride 105 110 H (98-107) mmol/L Carbon Dioxide 16 L 16 L (21-32) mmol/L BUN 37 H 48 H (6-23) mg/dl Creatinine 1.69 H 1.48 H (0.6-1.4) mg/dl Glucose 161 H 161 H (70-99(Fasting)) mg/dl Calcium 9.9 8.2 L (8.6-10.3) mg/dl AST 18 (13-39) U/L ALT 15 (7-52) U/L Alkaline Phosphatase 68 (34-104) U/L Total Protein 8.0 (6.0-8.3) gm/dl Albumin 4.8 (3.4-5.0) gm/dl Intake and Output 10/20/23 10/21/23 10/21/23 22:59 06:59 14:59 Intake Total 1200 / 2043.333 843.333 / 2043.333 655 / 655 Output Total 3 / 3 Balance 1200 / 2040.333 840.333 / 2040.333 655 / 655 Intake: IV 1200 / 2043.333 843.333 / 2043.333 655 / 655 Ampicillin/Sulbactam Sod 3,000 200 / 200 mg In 100 ml @ 200 mls/hr IV Q6H [facility] Rx#:[id number] Azithromycin 500 mg In Dextrose 255 / 255 5% 250 ml @ 127.5 mls/hr IV NOW STA Rx#:[id number] Magnesium Sulfate / D5w 1 gm In 100 / 275 175 / 275 100 ml @ 50 mls/hr IV Q2H [facility] Rx#:[id number] PANTOprazole 40 mg In Dextrose 68.333 / 68.333 100 / 100 5% Mini-B 100 ml @ 8 MG/HR 20 mls/hr IV Q5H [facility] Rx#:[id number] Potassium Chloride / Wtr 10 meq 100 / 500 400 / 500 300 / 300 In 100 ml @ 100 mls/hr IV Q1H [facility] Rx#:[id number] Sodium Chloride 0.9% 1,000 ml @ 1000 / 1000 999 mls/hr IV .Q1H1M ONE Rx#: [id number] Oral 0 / 0 Output: # Bowel Movements 3 / 3 Other: Weight 89.5 kg 87.5 kg Weight Measurement Method Built in Bedscale Standing Scale Diagnostic Findings See above. (2) Nausea & vomiting Vomiting type: unspecified Qualified Code(s): R11.2 - Nausea with vomiting, unspecified
--- NOTE | 2023-10-21 12:03 | Electrocardiogram Report ---
Test Reason : Blood Pressure : */* mmHG Vent. Rate : 100 BPM Atrial Rate : 100 BPM P-R Int : 204 ms QRS Dur : 120 ms QT Int : 384 ms P-R-T Axes : 31 -69 94 degrees QTcB Int : 495 ms Sinus rhythm with Premature supraventricular complexes Right bundle branch block Left anterior fascicular block Bifascicular block Left ventricular hypertrophy with repolarization abnormality ( R in aVL ) Cannot rule out Septal infarct , age undetermined Abnormal ECG When compared with ECG of 09-Nov-2021 12:29, Premature supraventricular complexes are now Present (RBBB and left anterior fascicular block) is now Present Minimal criteria for Septal infarct are now Present Confirmed by Bin Benitez ([id number]) on 10/21/2023 12:03:32 PM Referred By: REFERRED SELF Confirmed By: Bin Benitez
--- NOTE | 2023-10-21 12:06 | Electrocardiogram Report ---
Test Reason : Blood Pressure : */* mmHG Vent. Rate : 94 BPM Atrial Rate : 94 BPM P-R Int : 218 ms QRS Dur : 106 ms QT Int : 366 ms P-R-T Axes : 38 -51 129 degrees QTcB Int : 457 ms Sinus rhythm with 1st degree A-V block Left anterior fascicular block Left ventricular hypertrophy with repolarization abnormality Abnormal ECG When compared with ECG of 20-Oct-2023 22:31, (unconfirmed) Premature supraventricular complexes are no longer Present Right bundle branch block is no longer Present Minimal criteria for Septal infarct are no longer Present Confirmed by Bin Benitez ([id number]) on 10/21/2023 12:05:46 PM Referred By: REFERRED SELF Confirmed By: Bin Benitez
[2023-10-21] MEDS: traMADol HCL 50 MG TABLET PO PRN (15:17)
[2023-10-21] MEDS: carvediloL 3.125 MG TAB PO SCH (17:09)
[2023-10-21] MEDS: carvediloL 3.125 MG TAB PO ONE (18:42)
--- NOTE | 2023-10-21 19:48 | Hospitalist Progress Note ---
Date of Service October 21, 2023 Assessment & Plan (1) UGIB (upper gastrointestinal bleed): Plan: History GERD History antiplatelet Rx for CVA and PVD BP on the lower side Hemoglobin currently stable Diarrhea, patient has toxigenic E. coli enteritis Aspiration pneumonitis ARF on CRI secondary to illness Troponin elevation secondary to illness in the setting of kidney dysfunction hyperlipidemia, on statin Rx MEET as per records, outpatient testing contemplated chronic thrombocytopenia Hypokalemia, hypomagnesemia secondary to illness Prediabetes past tobacco abuse Continue on medical telemetry IV PPI Hold antiplatelet Rx for now Follow H&H, transfuse PRBC to maintain hemoglobin of at least 8 GI consult re: GI bleed N.p.o. Stool Cx, stool C. 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 SCDs re: GI bleed DNR Ms. Ivan Shah, contact #[phone]. A total time of 55 minutes was spent in care coordination for this patient (2) Elevated troponin: Plan: Cardiology consulted Suspect demand ischemia from current illness (3) Nausea & vomiting: Plan: Continue close observation and give antiemetics (4) Hypomagnesemia: Plan: Replace and replenish as needed (5) Acute hypokalemia: Plan: Replace and replenish as directed (6) Generalized weakness: Plan: Will need PT and OT evaluation (7) E coli enteritis: Plan: Continue antibiotic coverage as above Admission and Anticipated Discharge Date Admission Date: October 20, 2023 Subjective Patient seen at bedside. Says he feels terrible Has had multiple episodes of diarrhea and vomiting with some coffee ground emesis Patient has been seen by cardiology and GI. Has some generalized abdominal discomfort Review of Systems Review of Systems: Constitutional- no fever; no weight loss Eyes- no acute visual changes ENT- no sinus drainage; no pharyngitis Pulmonary- no cough, no wheezing, no shortness of breath Cardiac- no chest pain, no palpitations, no orthopnea, no dependent edema GI- + nausea, + vomiting, + diarrhea, no melena, no hematochezia - no dysuria, no hematuria Musculoskeletal- no arthralgias, no myalgias Derm- no rashes, no new skin lesions, no changing skin lesions Hematologic- no unusual bruising, no unusual bleeding Lymphatics- no adenopathy Endocrine- no polyuria or polydipsia; no heat or cold intolerance Neuro- no headaches, no focal neurologic symptoms Psych- no anxiety, no depression Physical Exam Physical Exam: General- adult elderly male sitting bedside. He appears ill Head- atraumatic Eyes- PERRL, EOMI, anicteric ENT- oropharynx clear Neck- supple, no JVD, no adenopathy, no thyromegaly; carotids +2/2, no bruits appreciated Lungs- clear to auscultation and percussion Heart- regular rhythm; no murmur, no gallop, no rub appreciated Abdomen- normal bowel sounds, soft, generalized tenderness, no masses or hepatosplenomegaly Extremities- no pretibial edema, no calf tenderness; peripheral pulses intact Neuro- alert, oriented x 3; PERRL, EOMI; no facial palsy; no focal deficit Skin- warm & dry Results & Data Results & Data Vital Signs (Past 12 Hours) Vital Signs Temp Pulse Pulse Resp BP Pulse Ox O2 Del Method 10/21/23 14:57 101 H 10/21/23 11:09 36.4 C L 91 H 18 149/88 H 95 Room Air 10/21/23 09:23 Room Air 10/21/23 07:54 105 H Diagnostic Findings Laboratory Results WBC 4.63 K/ul (4.8-10.8) L 10/21/23 06:05 RBC 4.66 M/uL (4.70-6.10) L 10/21/23 06:05 Hgb 13.9 g/dl (14.0-18.0) L 10/21/23 06:05 Hct 39.9 % (42.0-52.0) L 10/21/23 06:05 MCV 85.6 fL (80.0-100.0) 10/21/23 06:05 MCH 29.8 pg (25.0-34.0) 10/21/23 06:05 MCHC 34.8 g/dL (32.0-36.0) 10/21/23 06:05 RDW Std Deviation 42.5 fL (36.4-46.3) 10/21/23 06:05 RDW Coeff of Zander 13.8 % (11.5-14.5) 10/21/23 06:05 Plt Count 101 K/uL (130-400) L 10/21/23 06:05 MPV 9.5 fL (9.4-12.4) 10/21/23 06:05 Immature Gran % (Auto) 0.2 % 10/21/23 06:05 Neut % (Auto) 77.6 % 10/21/23 06:05 Lymph % (Auto) 12.1 % 10/21/23 06:05 [place] % (Auto) 9.3 % 10/21/23 06:05 Eos % (Auto) 0.2 % 10/21/23 06:05 Baso % (Auto) 0.6 % 10/21/23 06:05 Neut # (Auto) 3.59 K/uL (1.40-6.50) 10/21/23 06:05 Lymph # (Auto) 0.56 K/uL (1.20-3.40) L 10/21/23 06:05 [place] # (Auto) 0.43 K/uL (0.11-0.59) 10/21/23 06:05 Eos # (Auto) 0.01 K/uL (0.00-0.50) 10/21/23 06:05 Baso # (Auto) 0.03 K/uL (0.00-0.20) 10/21/23 06:05 Immature Gran # (Auto) 0.01 K/uL (0.01-0.20) 10/21/23 06:05 PT 11.9 Seconds (9.0-12.0) 10/20/23 19:00 INR 1.1 (0.9-1.1) 10/20/23 19:00 VBG pH 7.38 (7.36-7.41) 10/21/23 00:18 VBG pCO2 29 mmHg (38-50) L 10/21/23 00:18 VBG pO2 67 mmHg 10/21/23 00:18 VBG HCO3 17 mmol/L 10/21/23 00:18 VBG O2 Saturation 93.8 % 10/21/23 00:18 VBG Base Excess -6.6 mEq/L 10/21/23 00:18 Sodium 137 mmol/L (136-145) 10/21/23 06:05 Potassium 2.9 mmol/L (3.5-5.1) L 10/21/23 06:05 Chloride 110 mmol/L (98-107) H 10/21/23 06:05 Carbon Dioxide 16 mmol/L (21-32) L 10/21/23 06:05 Anion Gap 11 (3-11) 10/21/23 06:05 BUN 48 mg/dl (6-23) H 10/21/23 06:05 Creatinine 1.48 mg/dl (0.6-1.4) H 10/21/23 06:05 Est Cr Clr Drug Dosing 47.9 ml/min 10/21/23 06:05 Est GFR ( Amer) 55.2 ml/min 10/21/23 06:05 Est GFR (Non-Af Amer) 47.6 ml/min 10/21/23 06:05 BUN/Creatinine Ratio 32.4 (10-20) H 10/21/23 06:05 Glucose 161 mg/dl (70-99(Fasting)) H 10/21/23 06:05 Estimat Average Glucose 103 mg/dl 10/20/23 19:00 Hemoglobin A1c 5.2 % (4.5-5.6) 10/20/23 19:00 Calcium 8.2 mg/dl (8.6-10.3) L 10/21/23 06:05 Magnesium 2.1 mg/dl (1.7-2.4) 10/21/23 06:05 Total Bilirubin 1.6 mg/dl (0.2-1.0) H 10/20/23 19:00 AST 18 U/L (13-39) 10/20/23 19:00 ALT 15 U/L (7-52) 10/20/23 19:00 Alkaline Phosphatase 68 U/L (34-104) 10/20/23 19:00 Troponin I High Sens 219.1 pg/ml (0-20) H* 10/21/23 06:05 Total Protein 8.0 gm/dl (6.0-8.3) 10/20/23 19:00 Albumin 4.8 gm/dl (3.4-5.0) 10/20/23 19:00 Globulin 3.2 gm/dl (2.5-4.0) 10/20/23 19:00 Albumin/Globulin Ratio 1.5 (0.9-2) 10/20/23 19:00 Urine Color Yellow 10/21/23 03:23 Urine Appearance Clear (Clear) 10/21/23 03:23 Urine pH 5.0 (4.5-7.5) 10/21/23 03:23 Ur Specific [place] > 1.045 (1.000-1.030) H 10/21/23 03:23 Urine Protein Trace (Negative) H 10/21/23 03:23 Urine Glucose (UA) Negative (Negative) 10/21/23 03:23 Urine Ketones Negative (Negative) 10/21/23 03:23 Urine Blood Negative (Negative) 10/21/23 03:23 Urine Nitrite Negative (Negative) 10/21/23 03:23 Urine Bilirubin Negative (Negative) 10/21/23 03:23 Urine Urobilinogen Negative (Negative) 10/21/23 03:23 Ur Leukocyte Esterase Negative (Negative) 10/21/23 03:23 Urine WBC (Auto) 0-5 /hpf (0-5) 10/21/23 03:23 Urine RBC (Auto) 0-2 /hpf (0-2) 10/21/23 03:23 U Hyaline Cast (Auto) 3-5 /lpf (0-2) H 10/21/23 03:23 U Epithel Cells (Auto) 0-2 /hpf (0-2) 10/21/23 03:23 Urine Bacteria (Auto) None Seen (None Seen) 10/21/23 03:23 Stl C. cayetanensis PCR Not Detected (NotDetected) 10/21/23 02:05 Stool Rotavirus A PCR Not Detected (NotDetected) 10/21/23 02:05 Stl Adenov F 40/41 PCR Not Detected (NotDetected) 10/21/23 02:05 Stool Astrovirus (PCR) Not Detected (NotDetected) 10/21/23 02:05 Stool Campylobacter PCR Not Detected (NotDetected) 10/21/23 02:05 Stl C. diff Tox B Gene Negative Cdiff Gene (Neg) 10/21/23 02:05 Stool Cryptosporidium PCR Not Detected (NotDetected) 10/21/23 02:05 Stl E.coli Shiga Tox PCR Not Detected (NotDetected) 10/21/23 02:05 Stl Enterotoxigenic E PCR Not Detected (NotDetected) 10/21/23 02:05 Stool EPEC (PCR) DETECTED (NotDetected) A* 10/21/23 02:05 Stool EAEC (PCR) Not Detected (NotDetected) 10/21/23 02:05 Stl E. histolytica PCR Not Detected (NotDetected) 10/21/23 02:05 Stool Giardia Lamblia PCR Not Detected (NotDetected) 10/21/23 02:05 Stool Salmonella PCR Not Detected (NotDetected) 10/21/23 02:05 Stool Sapovirus (PCR) Not Detected (NotDetected) 10/21/23 02:05 Stl P. shigelloides PCR Not Detected (NotDetected) 10/21/23 02:05 Stl Shigella/EIEC PCR Not Detected (NotDetected) 10/21/23 02:05 St Y.enterocolitica PCR Not Detected (NotDetected) 10/21/23 02:05 Stool Vibrio (PCR) Not Detected (NotDetected) 10/21/23 02:05 Stl Vibrio cholerae PCR Not Detected (NotDetected) 10/21/23 02:05 Stl Norovirus GI/GII PCR Not Detected (NotDetected) 10/21/23 02:05 Adenovirus (PCR) Not Detected (NotDetected) 10/20/23 19:20 B. pertussis DNA (PCR) Not Detected (NotDetected) 10/20/23 19:20 B.parapertussis DNA PCR Not Detected (NotDetected) 10/20/23 19:20 C. pneumoniae DNA (PCR) Not Detected (NotDetected) 10/20/23 19:20 Coronavirus OC43 (PCR) Not Detected (NotDetected) 10/20/23 19:20 Coronavirus HKU1 (PCR) Not Detected (NotDetected) 10/20/23 19:20 Coronavirus 229E (PCR) Not Detected (NotDetected) 10/20/23 19:20 SARS-CoV-2 (PCR) Not Detected (NotDetected) 10/20/23 19:20 Coronavirus NL63 (PCR) Not Detected (NotDetected) 10/20/23 19:20 Human Metapneumovir PCR Not Detected (NotDetected) 10/20/23 19:20 Influenza Type A (PCR) Not Detected (NotDetected) 10/20/23 19:20 Influenza Type B (PCR) Not Detected (NotDetected) 10/20/23 19:20 M. pneumoniae (PCR) Not Detected (NotDetected) 10/20/23 19:20 Parainfluenza 1 (PCR) Not Detected (NotDetected) 10/20/23 19:20 Parainfluenza 2 (PCR) Not Detected (NotDetected) 10/20/23 19:20 Parainfluenza 3 (PCR) Not Detected (NotDetected) 10/20/23 19:20 Parainfluenza 4 (PCR) Not Detected (NotDetected) 10/20/23 19:20 RSV (PCR) Not Detected (NotDetected) 10/20/23 19:20 Entero/Rhino (PCR) Not Detected (NotDetected) 10/20/23 19:20 Blood Type O Positive 10/21/23 00:18 Antibody Screen NEGATIVE 10/21/23 00:18 Impressions Abdomen/Pelvis CT 10/20/23 19:17 Exam(s): CT ABDOMEN + PELVIS With Contrast IV Amt: 91 ml opti 320 EXAM: CT Abdomen and Pelvis With Intravenous Contrast CLINICAL HISTORY: RUQ abd pain; vomiting coffee ground emesis. TECHNIQUE: Axial computed tomography images of the abdomen and pelvis with intravenous contrast. CTDI is 24.52 mGy and DLP is 1289.61 mGy-cm. Automated exposure control was utilized for the study. A dose lowering technique was utilized adhering to the principles of ALARA. CONTRAST: Patient received 91 ml opti 320 of IV contrast COMPARISON: CT abdomen and pelvis without contrast dated 07/26/2023 FINDINGS: Lung bases: Unremarkable. No mass. No consolidation. Mediastinum: As below. ABDOMEN: Liver: Unremarkable. No mass. Gallbladder and bile ducts: Unremarkable. No calcified stones. No ductal dilation. Pancreas: Unremarkable. No mass. No ductal dilation. Spleen: Unremarkable. No splenomegaly. Adrenals: Unremarkable. No mass. Kidneys and ureters: Unremarkable. No solid mass. No hydronephrosis. Stomach and bowel: Stomach is moderately distended with fluid and minimal retained oral contents. No gastric mucosal thickening noted. There is retrograde moderate fluid distention of a hiatal hernia and the distal thoracic esophagus without esophageal mucosal thickening. Fluid distended small bowel loops throughout the abdomen and pelvis without dilation. No significant asymmetric bowel mucosal abnormality. There is prominent fluid throughout the colon without evidence for mucosal thickening or diverticulitis. PELVIS: Appendix: A normal caliber appendix extends inferiorly from the cecum in the right lower quadrant. Bladder: Unremarkable. No mass. Reproductive: Unremarkable as visualized. ABDOMEN and PELVIS: Intraperitoneal space: Unremarkable. No free air. No significant fluid collection. Bones/joints: No acute fracture. No dislocation. Soft tissues: Unremarkable. Vasculature: Atherosclerotic calcification of the aorta with fusiform aneurysm and tortuosity of the distal infrarenal aorta, measuring up to 5 cm in AP diameter on sagittal reformatted imaging from 4.8 cm previously. The transverse diameter is relatively stable at 4 cm. There is similar eccentric atheromatous plaque noted posteriorly. No dissection or acute periaortic abnormality. The aneurysm extends to the iliac bifurcation but does not involve the iliac bifurcations. Lymph nodes: Unremarkable. No enlarged lymph nodes. IMPRESSION: 1. Moderate fluid distention of the stomach with retrograde fluid filling the small hiatal hernia and distal thoracic esophagus. No asymmetric mucosal thickening. The clinical significance of this finding is indeterminant. 2. No evidence for bowel obstruction with prominent fluid throughout the small bowel and throughout the colon without focal asymmetric mucosal thickening or diverticulitis. Findings are most consistent with enterocolitis and diarrheal disease. No free intraperitoneal fluid or pneumoperitoneum. 3. 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 The transverse diameter is relatively stable at 4 cm. There is similar eccentric atheromatous plaque noted posteriorly. No dissection or acute periaortic abnormality. The aneurysm extends to the iliac bifurcation but does not involve the iliac bifurcations. Continued routine surveillance recommended. Electronically signed by: Gerardo Ashford MD 10/20/23 21:33 PM Chest X-Ray 10/20/23 19:17 XR chest 1V portable HISTORY: 68 years-old Male vomiting acute nausea with vomiting and chest pain COMPARISON: 11/09/2021 TECHNIQUE: AP view of the chest FINDINGS: Cardiac silhouette is within normal limits. The lungs are clear. No pneumothorax or pleural effusion. The bones appear intact. IMPRESSION: No acute process. ACT 112: Negative or not required by law. The above report was generated using voice recognition software. It may contain grammatical, syntax or spelling errors. Electronically signed by: Rl Boland M.D. 10/21/2023 7:[address] 10/20/23 19:17 Exam(s): CT HEAD Without Contrast EXAM: CT Head Without Intravenous Contrast CLINICAL HISTORY: confusion. TECHNIQUE: Axial computed tomography images of the head/brain without intravenous contrast. CTDI is 36.79 mGy and DLP is 625.8 mGy-cm. Automated exposure control was utilized for the study. A dose lowering technique was utilized adhering to the principles of ALARA. COMPARISON: CT head without contrast dated 11/09/2021 FINDINGS: Brain: Unremarkable. No hemorrhage. No significant white matter disease. No edema. Ventricles: Unremarkable. No ventriculomegaly. Bones/joints: Unremarkable. No acute fracture. Soft tissues: No significant overlying acute traumatic soft tissue abnormality. No radiopaque foreign body. Sinuses: Unremarkable as visualized. No acute sinusitis. Mastoid air cells: Unremarkable as visualized. No mastoid effusion. IMPRESSION: No acute intracranial process or significant alteration from the prior examination. Electronically signed by: Gerardo Ashford MD 10/20/23 21:27 PM (3) Nausea & vomiting Vomiting type: unspecified Qualified Code(s): R11.2 - Nausea with vomiting, unspecified
[2023-10-21] MEDS: SERTRALINE HCL 50 MG TABLET PO SCH (21:04)
[2023-10-22 07:41] LABS: BUN Creatinine Ratio 24.4 (10-20); Calcium 8.1 mg/dl (8.6-10.3); Creatinine Clr Calc Pharmacy 54.7 ml/min; Est GFR (African American) 63.9 ml/min; Est GFR (Non-African American) 55.2 ml/min; Magnesium 2.1 mg/dl (1.7-2.4); Potassium 2.8 mmol/L (3.5-5.1)
[2023-10-22] MEDS: carvediloL 6.25 MG TAB PO SCH (07:47)
[2023-10-22] MEDS: AZITHROMYCIN 250 MG TAB PO SCH (07:47)
[2023-10-22 07:50] LABS: Hematocrit (blood only) 32.2 % (42.0-52.0); Hemoglobin 11.3 g/dl (14.0-18.0); Mean Corpuscular Hemoglobin 29.6 pg (25.0-34.0); Mean Corpuscular Hgb Conc 35.1 g/dL (32.0-36.0); Mean Corpuscular Volume 84.3 fL (80.0-100.0); Mean Platelet Volume 9.5 fL (9.4-12.4); Platelet Count 85 K/uL (130-400); Platelet Estimate Decreased (Normal); RDW Coefficient of Variation 13.5 % (11.5-14.5); RDW Standard Deviation 41.6 fL (36.4-46.3); Red Blood Count 3.82 M/uL (4.70-6.10); White Blood Count 3.52 K/ul (4.8-10.8)
--- NOTE | 2023-10-22 09:49 | Gastroenterology Progress Note ---
Date of Service October 22, 2023 Assessment & Plan (1) E coli enteritis: Plan: 68 year old male admitted with nausea/vomiting/diarrhea and coffee ground emesis w/ stool testing revealing EPEC infection 1. Coffee ground emesis - DDX discussed: esophagitis vs MWT vs other - No further episodes of coffee ground emesis, no report of black or bloody stools - Stools documented as brown - HGB 11.3, BUN 32 - Conservative measures for now - Diet as tolerated - Trend HGB - Monitor GI output - Transfuse PRN per primary team - IV PPI BID --> May convert to oral PPI 40 mg BID x 1 month then 40 mg once daily - Outpatient EGD with his established GI team 2. EPEC infection - Supportive measures - Electrolyte replacements per primary team - IVF - Antiemetics PRN - Azithromycin can be considered for severe or persistent diarrhea, however, ABX not typically indicated for EPEC infection Recall GI as needed. I spent a total of 55 minutes on the date of service in review of patient's record, and previously obtained information in person and appropriate medical visit, discussion and education of plan, with patient and/or caregiver, placing orders for tests/referral/procedures as medically necessary and documentation of pertinent clinical information in patient's medical records for their visit today.Thank you for allowing us to participate in the care of this patient. Please call with any acute changes, questions or concerns. Please see addendum below with additional recommendation from my supervising physician. Admission and Anticipated Discharge Date Admission Date: October 20, 2023 Supervising Physician Co-Signing Physician Notes I saw and examined this patient with our nurse practitioner and agree with her assessment and plan. GI symptoms improved less abdominal pain resolving diarrhea. No nausea no vomiting. Abdomen soft nontender. No overt GI bleeding hemoglobin stable. Clinically resolving enteritis secondary to E. coli. This discharge she should follow-up with GI for an outpatient endoscopy to evaluate his episode of hematemesis. Subjective Pt was seen and evaluated, chart reviewed. Feeling improved! Abd pain is improving, nausea/vomiting resolved and diarrhea is improving. Wants to go home. Review of Systems Review of Systems: All other findings negative except as noted in HPI. Physical Exam Constitutional: WD/WN, vitals as above Respiratory: normal respiratory effort Cardiovascular: Rate/Rhythm: regular rate and regular rhythm Gastrointestinal (Abdomen): normal bowel sounds, soft, nontender, no hepatosplenomegaly Skin: no rashes, warm and dry Results & Data Results & Data Vital Signs (Past 12 Hours) Vital Signs Temp Pulse Pulse Resp BP Pulse Ox O2 Del Method 10/22/23 07:57 Room Air 10/22/23 07:36 36.5 C 74 18 143/76 H 97 Room Air 10/22/23 07:12 58 L 10/22/23 05:08 36.7 C 66 20 123/72 98 Room Air 10/21/23 23:54 36.6 C 81 20 137/74 97 Room Air 10/21/23 22:00 100 H Laboratory Results 10/22/23 Range/Units 06:35 WBC 3.52 L (4.8-10.8) K/ul RBC 3.82 L (4.70-6.10) M/uL Hgb 11.3 L (14.0-18.0) g/dl Hct 32.2 L (42.0-52.0) % MCV 84.3 (80.0-100.0) fL MCH 29.6 (25.0-34.0) pg MCHC 35.1 (32.0-36.0) g/dL RDW Std Deviation 41.6 (36.4-46.3) fL RDW Coeff of Zander 13.5 (11.5-14.5) % Plt Count 85 L (130-400) K/uL MPV 9.5 (9.4-12.4) fL Platelet Estimate Decreased L (Normal) Sodium 136 (136-145) mmol/L Potassium 2.8 L (3.5-5.1) mmol/L Chloride 107 (98-107) mmol/L Carbon Dioxide 21 (21-32) mmol/L Anion Gap 8 (3-11) BUN 32 H (6-23) mg/dl Creatinine 1.31 (0.6-1.4) mg/dl Est Cr Clr Drug Dosing 54.7 ml/min Est GFR ( Amer) 63.9 ml/min Est GFR (Non-Af Amer) 55.2 ml/min BUN/Creatinine Ratio 24.4 H (10-20) Glucose 133 H (70-99(Fasting)) mg/dl Calcium 8.1 L (8.6-10.3) mg/dl Magnesium 2.1 (1.7-2.4) mg/dl PG Care Time/CCT Total # of Minutes Spent Total Time Spent with Patient: Total time spent is greater than 50% in coordination of care (as documented) at patient's floor/unit and/or counseling patient: Coding Level of Care Code 48024 SUB INP/OBS CARE 3/50MIN Diagnoses E coli enteritis A04.4
--- NOTE | 2023-10-22 10:55 | Cardiology Progress Note ---
Date of Service October 22, 2023 Assessment & Plan (1) UGIB (upper gastrointestinal bleed): (2) Nausea & vomiting: (3) Hypomagnesemia: (4) Acute hypokalemia: (5) Generalized weakness: (6) Elevated troponin: Plan Complex 68-year-old male with longstanding resistant hypertension, hypertensive heart disease, and multiple other problems outlined below. Patient admitted with abdominal pain, nausea, coffee-ground emesis/upper GI bleeding, diarrhea with possible melanotic stools, enteropathogenic Escherichia coli, aspiration pneumonitis. Cardiology consultation requested secondary to elevated high-sensitivity troponin. Findings consistent with demand based ischemia. Patient without overt angina symptoms. EKG without acute ST segment change. Resting echocardiography with hyperdynamic LV function, EF greater than 70%, normal wall motion. Recommendations: 1. Correct hypokalemia via oral potassium supplementation, as ordered. 2. Continue carvedilol at 6.25 mg BID for now, titrating as needed/tolerated back to prior to arrival dosing. 3. Continue high intensity statin therapy. 4. Antiplatelet and anticoagulation therapy contraindicated 5. Outpatient stress testing once fully recovered from acute insults Admission and Anticipated Discharge Date Admission Date: October 20, 2023 Supervising Physician Co-Signing Physician Notes Patient was seen and examined. Assessment and plan as outlined above Note patient's med rec is not consistent with prehospital medications Outpatient records reflect carvedilol at 25 mg twice per day currently on reduced dose at 6.25 mg twice per day Aggrenox on outpatient regimen on hold Would recommend rectifying discrepancy between home and chart medications Subjective Patient seen and examined. Chart, medications, telemetry reviewed. Son and granddaughter at bedside. Feeling significantly better. Improving abdominal discomfort/nausea/diarrhea. No chest pain. No further palpitations. Breathing has improved. Telemetry: Sinus rhythm in the 60s and 70s predominantly, with atrial and ventricular ectopy. Review of Systems Review of Systems: Complete Review of Systems is as stated above, negative, or noncontributory. Physical Exam Physical Exam: General: Alert to person and place. HENT: Normocephalic. Atraumatic. Eyes: PER. Conjunctiva pink, sclera clear. Neck: No carotid bruits. No JVD. Heart: Regular at 64 bpm. No murmur. Lungs: Clear to auscultation. Abdomen: +BS. Epigastric tenderness Extremities: No significant edema. No cyanosis Limited neurological examination is without focal deficits. Pulses: Posterior tibial=2/4. Results & Data Vital Signs (Past 12 Hours) Vital Signs Temp Pulse Pulse Resp BP Pulse Ox O2 Del Method 10/22/23 07:57 Room Air 10/22/23 07:36 36.5 C 74 18 143/76 H 97 Room Air 10/22/23 07:12 58 L 10/22/23 05:08 36.7 C 66 20 123/72 98 Room Air 10/21/23 23:54 36.6 C 81 20 137/74 97 Room Air Laboratory Results CBC 10/22/23 Range/Units 06:35 WBC 3.52 L (4.8-10.8) K/ul RBC 3.82 L (4.70-6.10) M/uL Hgb 11.3 L (14.0-18.0) g/dl Hct 32.2 L (42.0-52.0) % Plt Count 85 L (130-400) K/uL Comprehensive Metabolic Panel 10/22/23 Range/Units 06:35 Sodium 136 (136-145) mmol/L Potassium 2.8 L (3.5-5.1) mmol/L Chloride 107 (98-107) mmol/L Carbon Dioxide 21 (21-32) mmol/L BUN 32 H (6-23) mg/dl Creatinine 1.31 (0.6-1.4) mg/dl Glucose 133 H (70-99(Fasting)) mg/dl Calcium 8.1 L (8.6-10.3) mg/dl Intake and Output 10/21/23 10/22/23 10/22/23 22:59 06:59 14:59 Intake Total 779.333 / 3044.333 500 / 3044.333 100 / 100 Output Total 1401 / 1401 Balance -621.667 / 1643.333 500 / 1643.333 100 / 100 Intake: IV 279.333 / 2344.333 300 / 2344.333 100 / 100 Ampicillin/Sulbactam Sod 3,000 100 / 400 200 / 400 mg In 100 ml @ 200 mls/hr IV Q6H [facility] Rx#:[id number] PANTOprazole 40 mg In Dextrose 179.333 / 379.333 100 / 379.333 100 / 100 5% Mini-B 100 ml @ 8 MG/HR 20 mls/hr IV Q5H [facility] Rx#:[id number] Oral 500 / 700 200 / 700 Output: Urine 1400 / 1400 # Bowel Movements Other: Other Intake Source SIPS Weight 89.3 kg Weight Measurement Method Built in [facility] (2) Nausea & vomiting Vomiting type: unspecified Qualified Code(s): R11.2 - Nausea with vomiting, unspecified
[2023-10-22] MEDS: POTASSIUM CHLORIDE CRTAB 20 MEQ TABCR PO STA (11:52)
--- NOTE | 2023-10-22 12:53 | Hospitalist Progress Note ---
Date of Service October 22, 2023 Assessment & Plan (1) UGIB (upper gastrointestinal bleed): Plan: History GERD History antiplatelet Rx for CVA and PVD BP improved Hemoglobin currently stable Diarrhea, patient has toxigenic E. coli enteritis. Diarrhea is resolving Aspiration pneumonitis ARF on CRI secondary to illness Troponin elevation secondary to illness in the setting of kidney dysfunction hyperlipidemia, on statin Rx MEET as per records, outpatient testing contemplated chronic thrombocytopenia Hypokalemia, hypomagnesemia secondary to illness. Replenish as needed Prediabetes past tobacco abuse Continue on medical telemetry Discontinue IV PPI per GI recommendations. Will start oral pantoprazole 40 mg twice daily Hold antiplatelet Rx for now Follow H&H, transfuse PRBC to maintain hemoglobin of at least 8 GI consult re: GI bleed Advance diet as tolerated Stool Cx, stool C. difficile Unasyn followed by Clemente Mendoza for aspiration pneumonitis and enteritis [employer] eval, aspiration precautions Based on UA, monitor creatinine response to IVF, hold home diuretic and ARB until creatinine back to baseline Replace electrolytes Check hemoglobin A1c DVT prophylaxis. SCDs re: GI bleed DNR Ms. Ivan Shah, contact #[phone]. A total time of 50 minutes was spent in care coordination for this patient (2) Elevated troponin: Plan: Cardiology consulted Suspect demand ischemia from current illness (3) Nausea & vomiting: Plan: Continue close observation and give antiemetics (4) Hypomagnesemia: Plan: Replace and replenish as needed (5) Acute hypokalemia: Plan: Replace and replenish as directed (6) Generalized weakness: Plan: Will need PT and OT evaluation (7) E coli enteritis: Plan: Continue antibiotic coverage as above Admission and Anticipated Discharge Date Admission Date: October 20, 2023 Subjective Patient seen and examined sitting in chair. Chart, medications, telemetry reviewed. Feeling much better. Improving abdominal discomfort/nausea/diarrhea. No chest pain. No further palpitations. Breathing has improved. His appetite is returning. Telemetry: Sinus rhythm in the 60s and 70s predominantly, with atrial and ventricular ectopy. Review of Systems Review of Systems: Constitutional- no fever; no weight loss Eyes- no acute visual changes ENT- no sinus drainage; no pharyngitis Pulmonary- no cough, no wheezing, no shortness of breath Cardiac- no chest pain, no palpitations, no orthopnea, no dependent edema GI-improved nausea, no further vomiting, improving diarrhea, no melena, no hematochezia - no dysuria, no hematuria Musculoskeletal- no arthralgias, no myalgias Derm- no rashes, no new skin lesions, no changing skin lesions Hematologic- no unusual bruising, no unusual bleeding Lymphatics- no adenopathy Endocrine- no polyuria or polydipsia; no heat or cold intolerance Neuro- no headaches, no focal neurologic symptoms Psych- no anxiety, no depression Physical Exam Physical Exam: General- adult male sitting in chair. He looks much improved over yesterday Head- atraumatic Eyes- PERRL, EOMI, anicteric ENT- oropharynx clear Neck- supple, no JVD, no adenopathy, no thyromegaly; carotids +2/2, no bruits appreciated Lungs- clear to auscultation and percussion Heart- regular rhythm; no murmur, no gallop, no rub appreciated Abdomen- normal bowel sounds, soft, nontender, no masses or hepatosplenomegaly Extremities- no pretibial edema, no calf tenderness; peripheral pulses intact Neuro- alert, oriented x 3; PERRL, EOMI; no facial palsy; no dysarthria; motor 5/5 bilaterally; no cogwheel rigidity; patellar DTRs +2/2; toes downgoing bilaterally; finger to nose intact bilaterally Skin- warm & dry Results & Data Results & Data Vital Signs (Past 12 Hours) Vital Signs Temp Pulse Pulse Resp BP Pulse Ox O2 Del Method 10/22/23 11:12 36.5 C 59 L 18 129/74 97 Room Air 10/22/23 07:57 Room Air 10/22/23 07:36 36.5 C 74 18 143/76 H 97 Room Air 10/22/23 07:12 58 L 10/22/23 05:08 36.7 C 66 20 123/72 98 Room Air Laboratory Results Short CBC 10/22/23 Range/Units 06:35 WBC 3.52 L (4.8-10.8) K/ul Hgb 11.3 L (14.0-18.0) g/dl Hct 32.2 L (42.0-52.0) % Plt Count 85 L (130-400) K/uL [facility] 08/16/24 06:35 Sodium 136 Potassium 2.8 L Chloride 107 Carbon Dioxide 21 BUN 32 H Creatinine 1.31 Glucose 133 H Calcium 8.1 L (3) Nausea & vomiting Vomiting type: unspecified Qualified Code(s): R11.2 - Nausea with vomiting, unspecified
[2023-10-22] MEDS: POTASSIUM CHLORIDE CRTAB 20 MEQ TABCR PO ONE (14:59)
[2023-10-22] MEDS: PANTOprazole 40 MG TAB PO SCH (20:51)
[2023-10-23 07:18] LABS: Hematocrit (blood only) 29.3 % (42.0-52.0); Hemoglobin 10.4 g/dl (14.0-18.0); Mean Corpuscular Hemoglobin 29.6 pg (25.0-34.0); Mean Corpuscular Hgb Conc 35.5 g/dL (32.0-36.0); Mean Corpuscular Volume 83.5 fL (80.0-100.0); Mean Platelet Volume 9.5 fL (9.4-12.4); Platelet Count 76 K/uL (130-400); RDW Coefficient of Variation 13.4 % (11.5-14.5); RDW Standard Deviation 40.7 fL (36.4-46.3); Red Blood Count 3.51 M/uL (4.70-6.10); White Blood Count 3.32 K/ul (4.8-10.8)
[2023-10-23 07:39] LABS: BUN Creatinine Ratio 22.6 (10-20); Calcium 8.3 mg/dl (8.6-10.3); Creatinine Clr Calc Pharmacy 67.6 ml/min; Est GFR (African American) 82.6 ml/min; Est GFR (Non-African American) 71.3 ml/min; Magnesium 2.1 mg/dl (1.7-2.4); Potassium 3.2 mmol/L (3.5-5.1)
[2023-10-23] MEDS: POTASSIUM CHLORIDE CRTAB 20 MEQ TABCR PO ONE (08:36)
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
[2023-10-23] MEDS: PANTOprazole 40 MG in SYRINGE 0 ML IV SCH (20:12)
[2023-10-23] MEDS: ACETAMINOPHEN 325 MG TAB PO PRN (20:12)
[2023-10-23 20:14] LABS: Hematocrit (blood only) 28.4 % (42.0-52.0)
[2023-10-24 06:37] LABS: Basophils # (auto) 0.03 K/uL (0.00-0.20); Basophils % (auto) 0.9 %; Eosinophils # (auto) 0.09 K/uL (0.00-0.50); Eosinophils % (auto) 2.6 %; Hematocrit (blood only) 29.3 % (42.0-52.0); Hemoglobin 10.3 g/dl (14.0-18.0); Immature Granulocytes # (auto) 0.02 K/uL (0.01-0.20); Immature Granulocytes % (auto) 0.6 %; Lymphocytes # (auto) 0.99 K/uL (1.20-3.40); Lymphocytes % (auto) 28.5 %; Mean Corpuscular Hemoglobin 29.6 pg (25.0-34.0); Mean Corpuscular Hgb Conc 35.2 g/dL (32.0-36.0); Mean Corpuscular Volume 84.2 fL (80.0-100.0); Monocytes # (auto) 0.28 K/uL (0.11-0.59); Monocytes % (auto) 8.1 %; Neutrophils # (auto) 2.06 K/uL (1.40-6.50); Neutrophils % (auto) 59.3 %; Platelet Count 92 K/uL (130-400); RDW Coefficient of Variation 13.2 % (11.5-14.5); RDW Standard Deviation 40.8 fL (36.4-46.3); Red Blood Count 3.48 M/uL (4.70-6.10); White Blood Count 3.47 K/ul (4.8-10.8)
[2023-10-24 06:57] LABS: BUN Creatinine Ratio 21.6 (10-20); Calcium 8.1 mg/dl (8.6-10.3); Creatinine Clr Calc Pharmacy 81.6 ml/min; Est GFR (African American) 101.6 ml/min; Est GFR (Non-African American) 87.6 ml/min; Phosphorus 1.7 mg/dl (2.5-4.9); Potassium 3.2 mmol/L (3.5-5.1)
[2023-10-24] MEDS ORDERED: POTASSIUM PHOS 3 MMOL/1 ML INFUSION IV SCH (07:45)
--- NOTE | 2023-10-24 08:18 | Hospitalist Progress Note ---
Date of Service October 24, 2023 Assessment & Plan (1) E coli enteritis: (2) UGIB (upper gastrointestinal bleed): (3) Elevated troponin: (4) Nausea & vomiting: (5) Hypomagnesemia: (6) Acute hypokalemia: (7) Generalized weakness: Plan 68 year old male presented to ED with N/V/diarrhea/abd pain, coffee ground emesis and found to have EPEC enteritis. Also had fever of 101 F at home per . CT A/P 1. Moderate fluid distention of the stomach with retrograde fluid filling the small hiatal hernia and distal thoracic esophagus. No asymmetric mucosal thickening. The clinical significance of this finding is indeterminant. 2. No evidence for bowel obstruction with prominent fluid throughout the small bowel and throughout the colon without focal asymmetric mucosal thickening or diverticulitis. Findings are most consistent with enterocolitis and diarrheal disease. No free intraperitoneal fluid or pneumoperitoneum. 3. 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 The transverse diameter is relatively stable at 4 cm. There is similar eccentric atheromatous plaque noted posteriorly. No dissection or acute periaortic abnormality. The aneurysm extends to the iliac bifurcation but does not involve the iliac bifurcations. Continued routine surveillance recommended. EPEC enterocolitis- GI PCR positive for EPEC, CT A/P as above. N/V and diarrhea improving, currently completing a course of azithromycin D3/3. Seen by GI and recommendations noted. Continue supportive treatment. Coffee ground emesis with black stools and anemia, concern for UGIB- H and H trend noted, now stable around 10, down from 16 on admission- could have been due to hemoconcentration on admission as baseline seems to be around 13. No further episodes of coffee ground emesis here but continues with black stools. Continue IV PPI bid. Seen by GI- recommended OP EGD, however he might need EGD inhouse with Hb drop and continued black stools. Will continue to check H and H every 8 hrs. Reconsult GI in am for possible EGD. Will keep NPO overnight. Thrombocytopenia- improving, Plt trend noted, 124->76->92. Will recheck in am. ?Aspiration pneumonitis on admission- on empiric unasyn since admission 10/19. Complete 5-7 days course. Elevated troponin- likely due to demand ischemia from above. Trop trend noted 128->191->219. Seen by Cardio- recommended OP follow up for stress test once recovered from current illness Hypokalemia- repleted, recheck in am Hypophosphatemia- repleted iv, recheck in am Hypomagnesemia- resolved KATHLEEN on admission- resolved. Cr down to 0.88 from 1.69 on admission. Essential Hypertension- stable, on norvasc and coreg H/o CVA and PVD- Home antiplatelets on hold given concern for GI bleed with black stools and Hb drop. Will resume when cleared by GI. DVT ppx- SCDs. Chemoppx C/I with concern for GI bleed with black stools and drop in Hb Dispo- Monitoring H& H and BM. GI reconsulted for possible EGD tomorrow. NPO after midnight Time spent- approx 35 mins Admission and Anticipated Discharge Date Admission Date: October 20, 2023 Subjective Patient was seen and examined at bedside. States he continues to have black stools and diarrhea. No fever, chills, CP, SOB, N/V. He wants to go home. Review of Systems Review of Systems: All systems reviewed & are unremarkable except as noted in Subjective Physical Exam Physical Exam: General: Sitting comfortably in chair, not in distress, on room air HEENT: EOMI, ARIES, MMM Chest: Clear breath sounds bilaterally, no wheezes or crackles CVS: Regular rate and rhythm, normal heart sounds, no murmur Abdomen: Soft, non tender, not distended, normal bowel sounds Neuro: Awake, alert, oriented, conversing well, non focal Extremities: No cyanosis, clubbing or edema Results & Data Results & Data Vital Signs (Past 12 Hours) Vital Signs Temp Pulse Pulse Resp BP Pulse Ox O2 Del Method 10/24/23 07:27 36.6 C 53 L 16 143/78 H 97 Room Air 10/24/23 06:13 54 L 10/24/23 03:41 36.5 C 58 L 18 132/67 96 Room Air 10/23/23 22:56 36.6 C 57 L 18 126/64 97 Room Air 10/23/23 21:55 52 L Laboratory Results Short CBC 10/23/23 10/24/23 Range/Units 19:50 05:48 WBC 3.47 L (4.8-10.8) K/ul Hgb 10.0 L 10.3 L (14.0-18.0) g/dl Hct 28.4 L 29.3 L (42.0-52.0) % Plt Count 92 L (130-400) K/uL [facility] 10/24/23 05:48 Sodium 139 Potassium 3.2 L Chloride 110 H Carbon Dioxide 24 BUN 19 Creatinine 0.88 Glucose 113 H Calcium 8.1 L (4) Nausea & vomiting Vomiting type: unspecified Qualified Code(s): R11.2 - Nausea with vomiting, unspecified
[2023-10-24] MEDS: POTASSIUM CHLORIDE CRTAB 20 MEQ TABCR PO SCH (08:19)
[2023-10-24] MEDS: POTASSIUM PHOSPHATE 21 MMOL in SODIUM CHLORIDE 0.9% 500 ML IV ONE (08:19)
[2023-10-24 12:01] LABS: Hematocrit (blood only) 28.4 % (42.0-52.0)
[2023-10-24 20:25] LABS: Hematocrit (blood only) 29.3 % (42.0-52.0); Hemoglobin 10.4 g/dl (14.0-18.0)
[2023-10-25 07:17] LABS: Hematocrit (blood only) 29.6 % (42.0-52.0); Hemoglobin 10.4 g/dl (14.0-18.0); Mean Corpuscular Hemoglobin 29.4 pg (25.0-34.0); Mean Corpuscular Hgb Conc 35.1 g/dL (32.0-36.0); Mean Corpuscular Volume 83.6 fL (80.0-100.0); Mean Platelet Volume 9.8 fL (9.4-12.4); Platelet Count 101 K/uL (130-400); RDW Coefficient of Variation 13.1 % (11.5-14.5); RDW Standard Deviation 39.6 fL (36.4-46.3); Red Blood Count 3.54 M/uL (4.70-6.10); White Blood Count 4.33 K/ul (4.8-10.8)
[2023-10-25 07:28] LABS: Albumin Globulin Ratio 1.7 (0.9-2); Albumin Level 3.8 gm/dl (3.4-5.0); BUN Creatinine Ratio 16.7 (10-20); Bilirubin,Total 0.5 mg/dl (0.2-1.0); Calcium 8.2 mg/dl (8.6-10.3); Creatinine Clr Calc Pharmacy 86.1 ml/min; Est GFR (African American) 103.5 ml/min; Est GFR (Non-African American) 89.3 ml/min; Globulin 2.3 gm/dl (2.5-4.0); Magnesium 1.8 mg/dl (1.7-2.4); Phosphorus 2.2 mg/dl (2.5-4.9); Potassium 3.2 mmol/L (3.5-5.1); Total Protein 6.1 gm/dl (6.0-8.3)
[2023-10-25 07:41] VITALS: RESP 16
--- NOTE | 2023-10-25 09:19 | Gastroenterology Progress Note ---
Date of Service October 25, 2023 Assessment & Plan (1) E coli enteritis: Plan: 68 year old male admitted with nausea/vomiting/diarrhea and coffee ground emesis w/ stool testing revealing EPEC infection. GI was reconsulted for an EGD. Risks, benefits alternatives discussed. He is agreeable to EGD evaluation. Maintain NPO status EGD this AM Please refer to previous notes for additional recommendations/plans We appreciate assistance in the management of any serological abnormality and corrections to include: hemoglobin >7, INR <2, platelets >50,000, potassium levels >3.5 but <5.3, and sodium levels within 5 points of the reference range prior to endoscopic evaluation. Thank you for allowing us to participate in the care of this patient. Please call with any acute changes, questions or concerns. Please see addendum below with additional recommendation from my supervising physician. Admission and Anticipated Discharge Date Admission Date: October 20, 2023 Supervising Physician Co-Signing Physician Notes I saw and examined this patient with our nurse practitioner and agree with her assessment and plan. Despite stable hemoglobin patient reports black stool. Will proceed with endoscopy to exclude significant bleeding site. Subjective GI was re-consulted for black stool and drop in HGB. Pt was seen and evaluated, chart reviewed. Pt notes brown stoosl, documented are brown stools. HGB trend reviewed, stable at 10.4. No BUN elevation. Review of Systems Review of Systems: All other findings negative except as noted in HPI. Physical Exam Constitutional: WD/WN, vitals as above Respiratory: normal respiratory effort, lungs clear to auscultation Cardiovascular: Rate/Rhythm: regular rate and regular rhythm Gastrointestinal (Abdomen): normal bowel sounds, soft, nontender, no hepatosplenomegaly Skin: no rashes, warm and dry Results & Data Results & Data Vital Signs (Past 12 Hours) Vital Signs Temp Pulse Pulse Resp BP BP Pulse Ox 10/25/23 07:41 36.6 C 57 L 16 181/81 H 98 10/25/23 04:00 36.7 C 59 L 18 161/83 H 96 10/24/23 23:06 36.7 C 65 18 161/81 H 97 10/24/23 22:03 60 O2 Del Method 10/25/23 07:41 Room Air 10/25/23 04:00 Room Air 10/24/23 23:06 Room Air 10/24/23 22:03 Laboratory Results 10/25/23 10/24/23 10/24/23 Range/Units 06:14 20:02 11:50 WBC 4.33 L (4.8-10.8) K/ul RBC 3.54 L (4.70-6.10) M/uL Hgb 10.4 L 10.4 L 10.0 L (14.0-18.0) g/dl Hct 29.6 L 29.3 L 28.4 L (42.0-52.0) % MCV 83.6 (80.0-100.0) fL MCH 29.4 (25.0-34.0) pg MCHC 35.1 (32.0-36.0) g/dL RDW Std Deviation 39.6 (36.4-46.3) fL RDW Coeff of Zander 13.1 (11.5-14.5) % Plt Count 101 L (130-400) K/uL MPV 9.8 (9.4-12.4) fL Sodium 138 (136-145) mmol/L Potassium 3.2 L (3.5-5.1) mmol/L Chloride 108 H (98-107) mmol/L Carbon Dioxide 24 (21-32) mmol/L Anion Gap 6 (3-11) BUN 14 (6-23) mg/dl Creatinine 0.84 (0.6-1.4) mg/dl Est Cr Clr Drug Dosing 86.1 ml/min Est GFR ( Amer) 103.5 ml/min Est GFR (Non-Af Amer) 89.3 ml/min BUN/Creatinine Ratio 16.7 (10-20) Glucose 104 H (70-99(Fasting)) mg/dl Calcium 8.2 L (8.6-10.3) mg/dl Phosphorus 2.2 L (2.5-4.9) mg/dl Magnesium 1.8 (1.7-2.4) mg/dl Total Bilirubin 0.5 (0.2-1.0) mg/dl AST 12 L (13-39) U/L ALT 10 (7-52) U/L Alkaline Phosphatase 55 (34-104) U/L Total Protein 6.1 (6.0-8.3) gm/dl Albumin 3.8 (3.4-5.0) gm/dl Globulin 2.3 L (2.5-4.0) gm/dl Albumin/Globulin Ratio 1.7 (0.9-2) PG Care Time/CCT Total # of Minutes Spent Total Time Spent with Patient: Total time spent is greater than 50% in coordination of care (as documented) at patient's floor/unit and/or counseling patient: Coding Level of Care Code None Diagnoses E coli enteritis A04.4
[2023-10-25] MEDS: POTASSIUM CHLORIDE CRTAB 20 MEQ TABCR PO SCH (09:53)
--- NOTE | 2023-10-25 12:54 | Anesthesiology Consultation ---
Date of Service October 25, 2023 Assessment & Plan Consults Requested medical & cardiac Pulmonary ASA ASA3 Proposed Anesthesia Anesthesia Type: MAC Risk / Benefits Reviewed With: PT / POA / Parent / Guardian, Accepts Plan and Informed Consent Obtained History Surgery Operation Date: 10/25/23 16:30 Proposed Procedures p Esophagogastroduodenoscopy Dr. Kenyon Prescott MD Height/Weight Height: 5 ft 5 in Weight: 91.1 kg Allergies Allergy/AdvReac Type Severity Reaction Status Date / Time No Known Allergies Allergy Verified 10/20/23 23:51 Medications Home Medications Medication Instructions Recorded Confirmed Last Taken hydrochlorothiazide 50 mg tablet 50 mg PO QAM 01/05/20 10/20/23 10/20/23 hydrocodone 10 mg-acetaminophen 1 tab PO QID PRN Pain 01/05/20 10/20/23 10/20/23 325 mg tablet rosuvastatin 40 mg tablet 40 mg PO DAILY 01/05/20 10/20/23 10/20/23 qam valsartan 320 mg tablet 320 mg PO QAM 01/05/20 10/20/23 10/20/23 amlodipine 5 mg tablet 5 mg PO QAM 10/20/23 10/20/23 10/20/23 omeprazole 40 mg capsule,delayed 40 mg PO QAM 10/20/23 10/20/23 10/20/23 release potassium chloride 20 mEq 20 meq PO QAM 10/20/23 10/20/23 10/20/23 tablet,extended release(part/cryst) ropinirole 2 mg tablet 2 mg PO TID 10/20/23 10/20/23 10/20/23 x1 dose sertraline 50 mg tablet 50 mg PO HS 10/20/23 10/20/23 10/19/23 spironolactone 25 mg tablet 25 mg PO QAM 10/20/23 10/20/23 10/20/23 Active Medications Generic Name Dose Route Start Last Admin Trade Name Freq PRN Reason Stop Dose Admin Acetaminophen 650 mg 10/21/23 00:01 10/23/23 20:12 Acetaminophen 325 Mg Tab PO 11/20/23 00:00 650 mg QID PRN Administration pain/fever Amlodipine Besylate 5 mg 10/21/23 09:00 10/25/23 08:37 Amlodipine Besylate 5 Mg Tab PO 11/20/23 08:59 5 mg QAM DIMPLE Administration Carvedilol 6.25 mg 10/22/23 08:00 10/25/23 07:32 Carvedilol 6.25 Mg Tab PO 11/21/23 07:59 Not Given BIDM DIMPLE Ampicillin Sodium/Sulbactam Sodium 3,000 mg in 100 mls @ 200 mls/hr 10/21/23 06:00 10/25/23 06:46 Unasyn IV 10/28/23 05:59 Infused Q6H DIMPLE Infusion Pantoprazole Sodium 40 mg/ 10 mls @ 5 mls/min 10/23/23 21:00 10/25/23 12:07 Syringe IV 11/22/23 20:59 5 mls/min BID DIMPLE Administration Oxycodone HCl 5 mg 10/21/23 01:41 10/22/23 05:48 Oxycodone Hcl Ir 5 Mg Tab (Immediate Release) PO 11/04/23 01:40 5 mg Q4H PRN Administration Pain Potassium Chloride 40 meq 10/25/23 09:00 10/25/23 09:53 Potassium Chloride Crtab 20 Meq Tabcr PO 11/24/23 08:59 40 meq DAILY DIMPLE Administration Ropinirole HCl 2 mg 10/21/23 09:00 10/25/23 08:37 Ropinirole Hcl 2 Mg Tablet PO 11/20/23 08:59 2 mg TID DIMPLE Administration Rosuvastatin Calcium 40 mg 10/21/23 09:00 10/25/23 08:39 Rosuvastatin Calcium 20 Mg Tab PO 11/20/23 08:59 Not Given DAILY DIMPLE Sertraline HCl 50 mg 10/21/23 21:00 10/24/23 19:56 Sertraline Hcl 50 Mg Tablet PO 11/20/23 20:59 50 mg HS DIMPLE Administration Tramadol HCl 25 - 50 mg 10/21/23 00:01 10/25/23 02:02 Tramadol Hcl 50 Mg Tablet PO 11/20/23 00:00 50 mg Q4H PRN Administration Pain NPO Date Last Intake of Fluids: 10/25/23 Time Last Intake of Fluids: 09:00 Last Intake of Fluids Comment: sip with meds Date Last Intake of Solids: 10/24/23 Time Last Intake of Solids: 23:00 Past Medical History Medical History AAA (abdominal aortic aneurysm) CVA (cerebral vascular accident) H/O: HTN (hypertension) GERD (gastroesophageal reflux disease) Exercise / Class Metabolic Activity II 4-5 Yardwork/Stairs/Walk up hill Past Family History Family History Other Family history non-contributory Past Surgical History Surgical History No pertinent past surgical history Past Anesthesia History No Hx of Anesthesia Complications and No Family Hx of Anesthesia Complications History of PONV No Hx of PONV and No Hx of Motion Sickness Social History Smoking Status: Never smoker Do You Dip or Chew Tobacco: No Hx Alcohol Use: No Hx Substance Use: No substance use type: does not use Physical Exam Vital Signs Last Vital Signs Temp 36.4 C L 10/25/23 12:41 Pulse 59 L 10/25/23 12:41 Resp 16 10/25/23 12:41 BP 184/73 H 10/25/23 12:41 Pulse Ox 99 10/25/23 12:41 O2 Del Method Room Air 10/25/23 12:41 Constitutional no acute distress ENMT Mouth: + dentition abnormality and + edentulous Thyromental Distance: > or= 3.5 Finger Breadths Mallampati Class: II Neck normal visual inspection Respiratory normal respiratory effort; no respiratory distress Auscultation: lungs clear to auscultation bilaterally Cardiovascular Rate/Rhythm: regular rate and regular rhythm Heart Sounds: no murmur Musculoskeletal Spine: normal cervical ROM Psychiatric Orientation: alert and oriented x 3 Testing Laboratory Results 10/25/23 06:14 10/25/23 06:14 PT 11.9 Seconds (9.0-12.0) 10/20/23 19:00 INR 1.1 (0.9-1.1) 10/20/23 19:00 Hemoglobin A1c 5.2 % (4.5-5.6) 10/20/23 19:00 Urine Color Yellow 10/21/23 03:23 Urine Appearance Clear (Clear) 10/21/23 03:23 Urine pH 5.0 (4.5-7.5) 10/21/23 03:23 Ur Specific [place] > 1.045 (1.000-1.030) H 10/21/23 03:23 Urine Protein Trace (Negative) H 10/21/23 03:23 Urine Glucose (UA) Negative (Negative) 10/21/23 03:23 Urine Ketones Negative (Negative) 10/21/23 03:23 Urine Nitrite Negative (Negative) 10/21/23 03:23 Ur Leukocyte Esterase Negative (Negative) 10/21/23 03:23 Urine WBC (Auto) 0-5 /hpf (0-5) 10/21/23 03:23 Urine RBC (Auto) 0-2 /hpf (0-2) 10/21/23 03:23 U Hyaline Cast (Auto) 3-5 /lpf (0-2) H 10/21/23 03:23 U Epithel Cells (Auto) 0-2 /hpf (0-2) 10/21/23 03:23 Urine Bacteria (Auto) None Seen (None Seen) 10/21/23 03:23 Blood Type O Positive 10/21/23 00:18 Antibody Screen NEGATIVE 10/21/23 00:18 Day of Procedure Evaluation. Date of Surgery October 25, 2023 Height/Weight Height: 5 ft 5 in Weight: 91.1 kg Vital Signs Last Vital Signs Temp 36.4 C L 10/25/23 12:41 Pulse 59 L 10/25/23 12:41 Resp 16 10/25/23 12:41 BP 184/73 H 10/25/23 12:41 Pulse Ox 99 10/25/23 12:41 O2 Del Method Room Air 10/25/23 12:41 Allergies Allergy/AdvReac Type Severity Reaction Status Date / Time No Known Allergies Allergy Verified 10/20/23 23:51 Medications Home Medications Medication Instructions Recorded Confirmed Last Taken hydrochlorothiazide 50 mg tablet 50 mg PO QAM 01/05/20 10/20/23 10/20/23 hydrocodone 10 mg-acetaminophen 1 tab PO QID PRN Pain 01/05/20 10/20/23 10/20/23 325 mg tablet rosuvastatin 40 mg tablet 40 mg PO DAILY 01/05/20 10/20/23 10/20/23 qa valsartan 320 mg tablet 320 mg PO QAM 01/05/20 10/20/23 10/20/23 amlodipine 5 mg tablet 5 mg PO QAM 10/20/23 10/20/23 10/20/23 omeprazole 40 mg capsule,delayed 40 mg PO QAM 10/20/23 10/20/23 10/20/23 release potassium chloride 20 mEq 20 meq PO QAM 10/20/23 10/20/23 10/20/23 tablet,extended release(part/cryst) ropinirole 2 mg tablet 2 mg PO TID 10/20/23 10/20/23 10/20/23 x1 dose sertraline 50 mg tablet 50 mg PO 10/20/23 10/20/23 10/19/23 spironolactone 25 mg tablet 25 mg PO QAM 10/20/23 10/20/23 10/20/23 Active Medications Generic Name Dose Route Start Last Admin Trade Name Freq PRN Reason Stop Dose Admin Acetaminophen 650 mg 10/21/23 00:01 10/23/23 20:12 Acetaminophen 325 Mg Tab PO 11/20/23 00:00 650 mg QID PRN Administration pain/fever Amlodipine Besylate 5 mg 10/21/23 09:00 10/25/23 08:37 Amlodipine Besylate 5 Mg Tab PO 11/20/23 08:59 5 mg QAM DIMPLE Administration Carvedilol 6.25 mg 10/22/23 08:00 10/25/23 07:32 Carvedilol 6.25 Mg Tab PO 11/21/23 07:59 Not Given BIDM DIMPLE Ampicillin Sodium/Sulbactam Sodium 3,000 mg in 100 mls @ 200 mls/hr 10/21/23 06:00 10/25/23 06:46 Unasyn IV 10/28/23 05:59 Infused Q6H DIMPLE Infusion Pantoprazole Sodium 40 mg/ 10 mls @ 5 mls/min 10/23/23 21:00 10/25/23 12:07 Syringe IV 11/22/23 20:59 5 mls/min BID DIMPLE Administration Oxycodone HCl 5 mg 10/21/23 01:41 10/22/23 05:48 Oxycodone Hcl Ir 5 Mg Tab (Immediate Release) PO 11/04/23 01:40 5 mg Q4H PRN Administration Pain Potassium Chloride 40 meq 10/25/23 09:00 10/25/23 09:53 Potassium Chloride Crtab 20 Meq Tabcr PO 11/24/23 08:59 40 meq DAILY DIMPLE Administration Ropinirole HCl 2 mg 10/21/23 09:00 10/25/23 08:37 Ropinirole Hcl 2 Mg Tablet PO 11/20/23 08:59 2 mg TID DIMPLE Administration Rosuvastatin Calcium 40 mg 10/21/23 09:00 10/25/23 08:39 Rosuvastatin Calcium 20 Mg Tab PO 11/20/23 08:59 Not Given DAILY DIMPLE Sertraline HCl 50 mg 10/21/23 21:00 10/24/23 19:56 Sertraline Hcl 50 Mg Tablet PO 11/20/23 20:59 50 mg HS DIMPLE Administration Tramadol HCl 25 - 50 mg 10/21/23 00:01 10/25/23 02:02 Tramadol Hcl 50 Mg Tablet PO 11/20/23 00:00 50 mg Q4H PRN Administration Pain Past Anesthesia History No Hx of Anesthesia Complications and No Family Hx of Anesthesia Complications History of PONV No Hx of PONV and No Hx of Motion Sickness NPO Date Last Intake of Fluids: 10/25/23 Time Last Intake of Fluids: 09:00 Last Intake of Fluids Comment: sip with meds Date Last Intake of Solids: 10/24/23 Time Last Intake of Solids: 23:00 Home Medications Home Medications Medication Instructions Recorded Confirmed Last Taken hydrochlorothiazide 50 mg tablet 50 mg PO QAM 01/05/20 10/20/23 10/20/23 hydrocodone 10 mg-acetaminophen 1 tab PO QID PRN Pain 01/05/20 10/20/23 10/20/23 325 mg tablet rosuvastatin 40 mg tablet 40 mg PO DAILY 01/05/20 10/20/23 10/20/23 qam valsartan 320 mg tablet 320 mg PO QAM 01/05/20 10/20/23 10/20/23 amlodipine 5 mg tablet 5 mg PO QAM 10/20/23 10/20/23 10/20/23 omeprazole 40 mg capsule,delayed 40 mg PO QAM 10/20/23 10/20/23 10/20/23 release potassium chloride 20 mEq 20 meq PO QAM 10/20/23 10/20/23 10/20/23 tablet,extended release(part/cryst) ropinirole 2 mg tablet 2 mg PO TID 10/20/23 10/20/23 10/20/23 x1 dose sertraline 50 mg tablet 50 mg PO HS 10/20/23 10/20/23 10/19/23 spironolactone 25 mg tablet 25 mg PO QAM 10/20/23 10/20/23 10/20/23 Active Medications Generic Name Dose Route Start Last Admin Trade Name Freq PRN Reason Stop Dose Admin Acetaminophen 650 mg 10/21/23 00:01 10/23/23 20:12 Acetaminophen 325 Mg Tab PO 11/20/23 00:00 650 mg QID PRN Administration pain/fever Amlodipine Besylate 5 mg 10/21/23 09:00 10/25/23 08:37 Amlodipine Besylate 5 Mg Tab PO 11/20/23 08:59 5 mg QAM DIMPLE Administration Carvedilol 6.25 mg 10/22/23 08:00 10/25/23 07:32 Carvedilol 6.25 Mg Tab PO 11/21/23 07:59 Not Given BIDM DIMPLE Ampicillin Sodium/Sulbactam Sodium 3,000 mg in 100 mls @ 200 mls/hr 10/21/23 06:00 10/25/23 06:46 Unasyn IV 10/28/23 05:59 Infused Q6H DIMPLE Infusion Pantoprazole Sodium 40 mg/ 10 mls @ 5 mls/min 10/23/23 21:00 10/25/23 12:07 Syringe IV 11/22/23 20:59 5 mls/min BID DIMPLE Administration Oxycodone HCl 5 mg 10/21/23 01:41 10/22/23 05:48 Oxycodone Hcl Ir 5 Mg Tab (Immediate Release) PO 11/04/23 01:40 5 mg Q4H PRN Administration Pain Potassium Chloride 40 meq 10/25/23 09:00 10/25/23 09:53 Potassium Chloride Crtab 20 Meq Tabcr PO 11/24/23 08:59 40 meq DAILY DIMPLE Administration Ropinirole HCl 2 mg 10/21/23 09:00 10/25/23 08:37 Ropinirole Hcl 2 Mg Tablet PO 11/20/23 08:59 2 mg TID DIMPLE Administration Rosuvastatin Calcium 40 mg 10/21/23 09:00 10/25/23 08:39 Rosuvastatin Calcium 20 Mg Tab PO 11/20/23 08:59 Not Given DAILY DIMPLE Sertraline HCl 50 mg 10/21/23 21:00 10/24/23 19:56 Sertraline Hcl 50 Mg Tablet PO 11/20/23 20:59 50 mg HS DIMPLE Administration Tramadol HCl 25 - 50 mg 10/21/23 00:01 10/25/23 02:02 Tramadol Hcl 50 Mg Tablet PO 11/20/23 00:00 50 mg Q4H PRN Administration Pain Exercise / Class Metabolic Activity Metabolic Activity: II 4-5 Yardwork/Stairs/Walk up hill Physical Exam Constitutional: no acute distress Mouth: + dentition abnormality and + edentulous Thyromental Distance: > or= 3.5 Finger Breadths Mallampati Class: II Neck: + visual inspection normal Respiratory: + respiratory effort normal and + clear to auscultation bilaterally; no respiratory distress Cardiovascular: + regular rate and + regular rhythm; no murmur Musculoskeletal: no limited cervical ROM Psychiatric: + alert and + oriented x 3 ASA ASA3 Proposed Anesthesia Proposed Anesthesia: MAC Risk / Benefits Reviewed With: PT / POA / Parent / Guardian, Accepts Plan and Informed Consent Obtained
--- NOTE | 2023-10-25 13:28 | GI REPORT ---
[facility] Patient: JOYCELYN GANDARA : 1955 Sex at : Male Age: 68 Years Procedure: Upper GI endoscopy Date: 10/25/2023 Attending Physician: Arturo Prescott MD Referring MD: Adan Siegel; Parviz Kearney Indications: - Epigastric abdominal pain - Suspected upper gastrointestinal bleeding Medications: - Monitored Anesthesia Care Complications: - No immediate complications. Procedure: - Prior to the procedure, a History and Physical was performed, and patient medications and allergies were reviewed. The patient's tolerance of previous anesthesia was also reviewed. The risks and benefits of the procedure and the sedation options and risks were discussed with the patient. All questions were answered, and informed consent was obtained. [Anticoagulant Agents] [Days Prior to Procedure]. [ASA Grade]. After reviewing the risks and benefits, the patient was deemed in satisfactory condition to undergo the procedure. - The egd scope was introduced through the mouth and advanced to the second part of the duodenum. - The upper GI endoscopy was accomplished without difficulty. - The patient tolerated the procedure well. Findings: - The examined esophagus was normal. - The entire examined stomach was normal. Biopsies were taken with a cold forceps for Helicobacter pylori testing. - The examined duodenum was normal. Impression: - Normal esophagus. - Normal stomach. Biopsied. - Normal examined duodenum. Recommendation: - Resume previous diet. - Patient has a contact number available for emergencies. The signs and symptoms of potential delayed complications were discussed with the patient. Return to normal activities tomorrow. Written discharge instructions were provided to the patient. Procedure Code(s): - 67776, Esophagogastroduodenoscopy, flexible, transoral; with biopsy, single or multiple Diagnosis Code(s): - R10.13, Epigastric pain CPT(R) - 2022 copyright [employer]. All Rights Reserved. The CPT codes, CCI edits and ICD codes generated are intended as suggestions and were generated based on input data. These codes are preliminary and upon billiard parlor manager review may be revised to meet current compliance and payer requirements. The provider is responsible for the final determination of appropriate codes, and modifiers. Arturo Prescott MD This document has been electronically signed. Note Initiated:10/25/2023 Note Completed:10/25/2023 1:27 PM [id number]
[2023-10-25] MEDS ORDERED: LIDOCAINE 2% 2 ML VIAL/AMP(20MG/ML) INFIL ONE (13:31)
[2023-10-25] MEDS ORDERED: PROPOFOL IV EMULSION 10 MG/ML 20 ML VIAL IV ONE (13:31)
--- NOTE | 2023-10-25 14:42 | Anesthesiology Progress Note ---
Date of Service October 25, 2023 Anesthesia Post Procedure Vital Signs Vital Signs: Temp Pulse Pulse Resp BP BP Pulse Ox 10/25/23 14:01 62 16 179/94 H 100 10/25/23 13:45 64 16 149/70 H 98 10/25/23 13:30 58 L 16 158/68 H 98 10/25/23 12:41 36.4 C L 59 L 16 184/73 H 99 10/25/23 11:31 36.4 C L 82 16 182/83 H 96 10/25/23 07:41 36.6 C 57 L 16 181/81 H 98 10/25/23 04:00 36.7 C 59 L 18 161/83 H 96 10/24/23 23:06 36.7 C 65 18 161/81 H 97 10/24/23 22:03 60 10/24/23 20:00 36.9 C 62 18 155/77 H 98 10/24/23 16:57 59 L 10/24/23 15:11 36.6 C 55 L 18 166/89 H 98 O2 Del Method 10/25/23 14:01 Room Air 10/25/23 13:45 Room Air 10/25/23 13:30 Room Air 10/25/23 12:41 Room Air 10/25/23 11:31 Room Air 10/25/23 07:41 Room Air 10/25/23 04:00 Room Air 10/24/23 23:06 Room Air 10/24/23 22:03 10/24/23 20:00 Room Air 10/24/23 16:57 10/24/23 15:11 Room Air Pain Intensity Abdomen: Pain Intensity: 2 Bilateral Lower Leg: Pain Intensity: 4 Transfer of Care Handoff Completed per policy Notes Mental Status: alert / awake / arousable and participated in evaluation Nausea / Vomiting: adequately controlled Pain: adequately controlled Airway Patency, RR, SpO2: stable & adequate BP & HR: stable & adequate Hydration State: stable & adequate Anesthetic Complications: no major complications apparent and Pt Satisfied with anesthetic care
--- NOTE | 2023-10-25 15:24 | Discharge Summary ---
Discharge Summary Date of Service Patient was admitted to the medical surgical unit on telemetry. He was placed on VTE prophylaxis with SCDs due to possible GI bleeding and anemia. Cardiology was consulted for elevated troponin. It was felt the patient had demand ischemia in the setting of possible GI bleed and severe enterocolitis along with electrolyte abnormalities. Electrolytes were repleted. He was placed on IV antibiotics for possible aspiration pneumonitis. GI was consulted. Patient was observed but then taken for EGD on 819. The EGD was completely normal. Patient did have a mild hemoglobin drop but this remained stable for several days. He had no further bleeding, coffee-ground emesis or melena. Patient's diet was advanced. His diarrhea resolved. He had no further nausea or vomiting. At the time of discharge he was ambulating without assistance. He was tolerating heart healthy diet. Patient was discharged in stable condition on this day. Principal Dx & Hospital Course #1 = Principal Diagnosis (1) E coli enteritis: (2) UGIB (upper gastrointestinal bleed): (3) Elevated troponin: (4) Nausea & vomiting: (5) Hypomagnesemia: (6) Acute hypokalemia: (7) Generalized weakness: Plan 68 year old male presented to ED with N/V/diarrhea/abd pain, coffee ground emesis and found to have EPEC enteritis. Also had fever of 101 F at home per . CT A/P 1. Moderate fluid distention of the stomach with retrograde fluid filling the small hiatal hernia and distal thoracic esophagus. No asymmetric mucosal thickening. The clinical significance of this finding is indeterminant. 2. No evidence for bowel obstruction with prominent fluid throughout the small bowel and throughout the colon without focal asymmetric mucosal thickening or diverticulitis. Findings are most consistent with enterocolitis and diarrheal disease. No free intraperitoneal fluid or pneumoperitoneum. 3. 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 The transverse diameter is relatively stable at 4 cm. There is similar eccentric atheromatous plaque noted posteriorly. No dissection or acute periaortic abnormality. The aneurysm extends to the iliac bifurcation but does not involve the iliac bifurcations. Continued routine surveillance recommended. EPEC enterocolitis- GI PCR positive for EPEC, CT A/P as above. N/V and diarrhea improving, currently completing a course of azithromycin D3/3. Seen by GI and recommendations noted. Continue supportive treatment. Coffee ground emesis with black stools and anemia, concern for UGIB- H and H trend noted, now stable around 10, down from 16 on admission- could have been due to hemoconcentration on admission as baseline seems to be around 13. No further episodes of coffee ground emesis here but continues with black stools. Continue IV PPI bid. Seen by GI- recommended OP EGD, however he might need EGD inhouse with Hb drop and continued black stools. Will continue to check H and H every 8 hrs. Reconsult GI in am for possible EGD. Will keep NPO overnight. Thrombocytopenia- improving, Plt trend noted, 124->76->92. Will recheck in am. ?Aspiration pneumonitis on admission- on empiric unasyn since admission 10/19. Complete 5-7 days course. Elevated troponin- likely due to demand ischemia from above. Trop trend noted 128->191->219. Seen by Cardio- recommended OP follow up for stress test once recovered from current illness Hypokalemia- repleted, recheck in am Hypophosphatemia- repleted iv, recheck in am Hypomagnesemia- resolved KATHLEEN on admission- resolved. Cr down to 0.88 from 1.69 on admission. Essential Hypertension- stable, on norvasc and coreg H/o CVA and PVD- Home antiplatelets on hold given concern for GI bleed with black stools and Hb drop. Will resume when cleared by GI. DVT ppx- SCDs. Chemoppx C/I with concern for GI bleed with black stools and drop in Hb Dispo- Monitoring H& H and BM. GI reconsulted for possible EGD tomorrow. NPO after midnight Time spent- approx 35 mins Notes For Next Care Provider Check CBC and BMP at hospital f/u Medication Changes From Visit Carvedilol 6.25 mg twice daily added to the patient's regimen by cardiology. Admission HPI Per Admitting Provider History obtained from patient, family, and records. Medical history significant for CVA, AAA, hypertension, hyperlipidemia, MEET as per records, GERD, CRI (baseline creatinine 1.4 ), chronic thrombocytopenia, RLS, borderline diabetes as per patient, past tobacco abuse. 1 day history of achy central abdominal pain associated with coffee-ground emesis and diarrhea with melanotic stools as per patient. Junky cough symptoms with some SOB. No chest pain. Not sure about sick contacts, no recent antibiotics. Admits to episodic cough symptoms with food/water intake. Usual right facial droop from old stroke as per . Patient brought to ER for evaluation. IV Protonix administered at the ER. Medical History as above Surgical History : Carpal tunnel surgery, hernia repair Family History : Heart disease, DM Personal/Social history : Past tobacco abuse, no EtOH intake Admission Exam Per Admitting Provider GENERAL: uncomfortable, no respiratory distress SKIN: Pallor, warm HEENT: Alopecia, pale palpebral conjunctivae, no ptosis, dry buccal mucosa, dried coffee-ground emesis per [place] NECK : Supple, no tenderness CHEST : Decreased breath sounds, expiratory wheezes, no tenderness HEART : RRR, no obvious murmurs ABDOMEN: Epigastric tenderness, nontender EXTREMITIES : No LE swelling/tenderness, no other conspicuous deformities noted NEUROLOGIC : Coherent, no facial asymmetry, gait and stance not assessed Discharge Exam General- adult male in NAD Head- atraumatic Eyes- PERRL, EOMI, anicteric ENT- oropharynx clear Neck- supple, no JVD, no adenopathy, no thyromegaly; carotids +2/2, no bruits appreciated Lungs- clear to auscultation and percussion Heart- regular rhythm; no murmur, no gallop, no rub appreciated Abdomen- normal bowel sounds, soft, nontender, no masses or hepatosplenomegaly Extremities- no pretibial edema, no calf tenderness; peripheral pulses intact Neuro- alert, oriented x 3; PERRL, EOMI; no facial palsy; no dysarthria; motor 5/5 bilaterally; no cogwheel rigidity; patellar DTRs +2/2; toes downgoing bilaterally; finger to nose intact bilaterally Skin- warm & dry Updated Medication List Medication Instructions Recorded Confirmed Type hydrochlorothiazide 50 mg tablet 50 mg PO QAM 01/05/20 10/20/23 History hydrocodone 10 mg-acetaminophen 1 tab PO QID PRN Pain 01/05/20 10/20/23 History 325 mg tablet rosuvastatin 40 mg tablet 40 mg PO DAILY 01/05/20 10/20/23 History valsartan 320 mg tablet 320 mg PO QAM 01/05/20 10/20/23 History amlodipine 5 mg tablet 5 mg PO QAM 10/20/23 10/20/23 History omeprazole 40 mg capsule,delayed 40 mg PO QAM 10/20/23 10/20/23 History release potassium chloride 20 mEq 20 meq PO QAM 10/20/23 10/20/23 History tablet,extended release(part/cryst) ropinirole 2 mg tablet 2 mg PO TID 10/20/23 10/20/23 History sertraline 50 mg tablet 50 mg PO HS 10/20/23 10/20/23 History spironolactone 25 mg tablet 25 mg PO QAM 10/20/23 10/20/23 History carvedilol 6.25 mg tablet 6.25 mg PO BIDM #60 tabs 10/25/23 Rx Hospital Stay Data Consultations 10/20/23 22:55 ED Decision to Admit Stat 10/21/23 01:40 Consult Gastroenterology Routine 10/21/23 08:30 Consult Cardiology Routine 10/25/23 08:00 Consult Gastroenterology Routine Procedures Performed Operation Date: 10/25/23 16:30 Actual Procedures p EGD Biopsy Cytology - Arturo Prescott MD Diagnostic Imagining Performed 10/20/23 19:17 CT Abd and Pelvis [CT abd pelvis IV con only] Stat CT head/brain wo con Stat Laboratory Results WBC 4.33 K/ul (4.8-10.8) L 10/25/23 06:14 RBC 3.54 M/uL (4.70-6.10) L 10/25/23 06:14 Hgb 10.4 g/dl (14.0-18.0) L 10/25/23 06:14 Hct 29.6 % (42.0-52.0) L 10/25/23 06:14 MCV 83.6 fL (80.0-100.0) 10/25/23 06:14 MCH 29.4 pg (25.0-34.0) 10/25/23 06:14 MCHC 35.1 g/dL (32.0-36.0) 10/25/23 06:14 RDW Std Deviation 39.6 fL (36.4-46.3) 10/25/23 06:14 RDW Coeff of Zander 13.1 % (11.5-14.5) 10/25/23 06:14 Plt Count 101 K/uL (130-400) L 10/25/23 06:14 MPV 9.8 fL (9.4-12.4) 10/25/23 06:14 Immature Gran % (Auto) 0.6 % 10/24/23 05:48 Neut % (Auto) 59.3 % 10/24/23 05:48 Lymph % (Auto) 28.5 % 10/24/23 05:48 Bond % (Auto) 8.1 % 10/24/23 05:48 Eos % (Auto) 2.6 % 10/24/23 05:48 Baso % (Auto) 0.9 % 10/24/23 05:48 Neut # (Auto) 2.06 K/uL (1.40-6.50) 10/24/23 05:48 Lymph # (Auto) 0.99 K/uL (1.20-3.40) L 10/24/23 05:48 Bond # (Auto) 0.28 K/uL (0.11-0.59) 10/24/23 05:48 Eos # (Auto) 0.09 K/uL (0.00-0.50) 10/24/23 05:48 Baso # (Auto) 0.03 K/uL (0.00-0.20) 10/24/23 05:48 Immature Gran # (Auto) 0.02 K/uL (0.01-0.20) 10/24/23 05:48 Platelet Estimate Decreased (Normal) L 10/22/23 06:35 PT 11.9 Seconds (9.0-12.0) 10/20/23 19:00 INR 1.1 (0.9-1.1) 10/20/23 19:00 VBG pH 7.38 (7.36-7.41) 10/21/23 00:18 VBG pCO2 29 mmHg (38-50) L 10/21/23 00:18 VBG pO2 67 mmHg 10/21/23 00:18 VBG HCO3 17 mmol/L 10/21/23 00:18 VBG O2 Saturation 93.8 % 10/21/23 00:18 VBG Base Excess -6.6 mEq/L 10/21/23 00:18 Sodium 138 mmol/L (136-145) 10/25/23 06:14 Potassium 3.2 mmol/L (3.5-5.1) L 10/25/23 06:14 Chloride 108 mmol/L (98-107) H 10/25/23 06:14 Carbon Dioxide 24 mmol/L (21-32) 10/25/23 06:14 Anion Gap 6 (3-11) 10/25/23 06:14 BUN 14 mg/dl (6-23) 10/25/23 06:14 Creatinine 0.84 mg/dl (0.6-1.4) 10/25/23 06:14 Est Cr Clr Drug Dosing 86.1 ml/min 10/25/23 06:14 Est GFR ( Amer) 103.5 ml/min 10/25/23 06:14 Est GFR (Non-Af Amer) 89.3 ml/min 10/25/23 06:14 BUN/Creatinine Ratio 16.7 (10-20) 10/25/23 06:14 Glucose 104 mg/dl (70-99(Fasting)) H 10/25/23 06:14 Estimat Average Glucose 103 mg/dl 10/20/23 19:00 Hemoglobin A1c 5.2 % (4.5-5.6) 10/20/23 19:00 Calcium 8.2 mg/dl (8.6-10.3) L 10/25/23 06:14 Phosphorus 2.2 mg/dl (2.5-4.9) L 10/25/23 06:14 Magnesium 1.8 mg/dl (1.7-2.4) 10/25/23 06:14 Total Bilirubin 0.5 mg/dl (0.2-1.0) 10/25/23 06:14 AST 12 U/L (13-39) L 10/25/23 06:14 ALT 10 U/L (7-52) 10/25/23 06:14 Alkaline Phosphatase 55 U/L (34-104) 10/25/23 06:14 Troponin I High Sens 219.1 pg/ml (0-20) H* 10/21/23 06:05 Total Protein 6.1 gm/dl (6.0-8.3) 10/25/23 06:14 Albumin 3.8 gm/dl (3.4-5.0) 10/25/23 06:14 Globulin 2.3 gm/dl (2.5-4.0) L 10/25/23 06:14 Albumin/Globulin Ratio 1.7 (0.9-2) 10/25/23 06:14 Urine Color Yellow 10/21/23 03:23 Urine Appearance Clear (Clear) 10/21/23 03:23 Urine pH 5.0 (4.5-7.5) 10/21/23 03:23 Ur Specific [place] > 1.045 (1.000-1.030) H 10/21/23 03:23 Urine Protein Trace (Negative) H 10/21/23 03:23 Urine Glucose (UA) Negative (Negative) 10/21/23 03:23 Urine Ketones Negative (Negative) 10/21/23 03:23 Urine Blood Negative (Negative) 10/21/23 03:23 Urine Nitrite Negative (Negative) 10/21/23 03:23 Urine Bilirubin Negative (Negative) 10/21/23 03:23 Urine Urobilinogen Negative (Negative) 10/21/23 03:23 Ur Leukocyte Esterase Negative (Negative) 10/21/23 03:23 Urine WBC (Auto) 0-5 /hpf (0-5) 10/21/23 03:23 Urine RBC (Auto) 0-2 /hpf (0-2) 10/21/23 03:23 U Hyaline Cast (Auto) 3-5 /lpf (0-2) H 10/21/23 03:23 U Epithel Cells (Auto) 0-2 /hpf (0-2) 10/21/23 03:23 Urine Bacteria (Auto) None Seen (None Seen) 10/21/23 03:23 Stl C. cayetanensis PCR Not Detected (NotDetected) 10/21/23 02:05 Stool Rotavirus A PCR Not Detected (NotDetected) 10/21/23 02:05 Stl Adenov F 40/41 PCR Not Detected (NotDetected) 10/21/23 02:05 Stool Astrovirus (PCR) Not Detected (NotDetected) 10/21/23 02:05 Stool Campylobacter PCR Not Detected (NotDetected) 10/21/23 02:05 Stl C. diff Tox B Gene Negative Cdiff Gene (Neg) 10/21/23 02:05 Stool Cryptosporidium PCR Not Detected (NotDetected) 10/21/23 02:05 Stl E.coli Shiga Tox PCR Not Detected (NotDetected) 10/21/23 02:05 Stl Enterotoxigenic E PCR Not Detected (NotDetected) 10/21/23 02:05 Stool EPEC (PCR) DETECTED (NotDetected) A* 10/21/23 02:05 Stool EAEC (PCR) Not Detected (NotDetected) 10/21/23 02:05 Stl E. histolytica PCR Not Detected (NotDetected) 10/21/23 02:05 Stool Giardia Lamblia PCR Not Detected (NotDetected) 10/21/23 02:05 Stool Salmonella PCR Not Detected (NotDetected) 10/21/23 02:05 Stool Sapovirus (PCR) Not Detected (NotDetected) 10/21/23 02:05 Stl P. shigelloides PCR Not Detected (NotDetected) 10/21/23 02:05 Stl Shigella/EIEC PCR Not Detected (NotDetected) 10/21/23 02:05 St Y.enterocolitica PCR Not Detected (NotDetected) 10/21/23 02:05 Stool Vibrio (PCR) Not Detected (NotDetected) 10/21/23 02:05 Stl Vibrio cholerae PCR Not Detected (NotDetected) 10/21/23 02:05 Stl Norovirus GI/GII PCR Not Detected (NotDetected) 10/21/23 02:05 Adenovirus (PCR) Not Detected (NotDetected) 10/20/23 19:20 B. pertussis DNA (PCR) Not Detected (NotDetected) 10/20/23 19:20 B.parapertussis DNA PCR Not Detected (NotDetected) 10/20/23 19:20 C. pneumoniae DNA (PCR) Not Detected (NotDetected) 10/20/23 19:20 Coronavirus OC43 (PCR) Not Detected (NotDetected) 10/20/23 19:20 Coronavirus HKU1 (PCR) Not Detected (NotDetected) 10/20/23 19:20 Coronavirus 229E (PCR) Not Detected (NotDetected) 10/20/23 19:20 SARS-CoV-2 (PCR) Not Detected (NotDetected) 10/20/23 19:20 Coronavirus NL63 (PCR) Not Detected (NotDetected) 10/20/23 19:20 Human Metapneumovir PCR Not Detected (NotDetected) 10/20/23 19:20 Influenza Type A (PCR) Not Detected (NotDetected) 10/20/23 19:20 Influenza Type B (PCR) Not Detected (NotDetected) 10/20/23 19:20 M. pneumoniae (PCR) Not Detected (NotDetected) 10/20/23 19:20 Parainfluenza 1 (PCR) Not Detected (NotDetected) 10/20/23 19:20 Parainfluenza 2 (PCR) Not Detected (NotDetected) 10/20/23 19:20 Parainfluenza 3 (PCR) Not Detected (NotDetected) 10/20/23 19:20 Parainfluenza 4 (PCR) Not Detected (NotDetected) 10/20/23 19:20 RSV (PCR) Not Detected (NotDetected) 10/20/23 19:20 Entero/Rhino (PCR) Not Detected (NotDetected) 10/20/23 19:20 Blood Type O Positive 10/21/23 00:18 Antibody Screen NEGATIVE 10/21/23 00:18 Impressions Abdomen/Pelvis CT 10/20/23 19:17 Exam(s): CT ABDOMEN + PELVIS With Contrast IV Amt: 91 ml opti 320 EXAM: CT Abdomen and Pelvis With Intravenous Contrast CLINICAL HISTORY: RUQ abd pain; vomiting coffee ground emesis. TECHNIQUE: Axial computed tomography images of the abdomen and pelvis with intravenous contrast. CTDI is 24.52 mGy and DLP is 1289.61 mGy-cm. Automated exposure control was utilized for the study. A dose lowering technique was utilized adhering to the principles of ALARA. CONTRAST: Patient received 91 ml opti 320 of IV contrast COMPARISON: CT abdomen and pelvis without contrast dated 07/26/2023 FINDINGS: Lung bases: Unremarkable. No mass. No consolidation. Mediastinum: As below. ABDOMEN: Liver: Unremarkable. No mass. Gallbladder and bile ducts: Unremarkable. No calcified stones. No ductal dilation. Pancreas: Unremarkable. No mass. No ductal dilation. Spleen: Unremarkable. No splenomegaly. Adrenals: Unremarkable. No mass. Kidneys and ureters: Unremarkable. No solid mass. No hydronephrosis. Stomach and bowel: Stomach is moderately distended with fluid and minimal retained oral contents. No gastric mucosal thickening noted. There is retrograde moderate fluid distention of a hiatal hernia and the distal thoracic esophagus without esophageal mucosal thickening. Fluid distended small bowel loops throughout the abdomen and pelvis without dilation. No significant asymmetric bowel mucosal abnormality. There is prominent fluid throughout the colon without evidence for mucosal thickening or diverticulitis. PELVIS: Appendix: A normal caliber appendix extends inferiorly from the cecum in the right lower quadrant. Bladder: Unremarkable. No mass. Reproductive: Unremarkable as visualized. ABDOMEN and PELVIS: Intraperitoneal space: Unremarkable. No free air. No significant fluid collection. Bones/joints: No acute fracture. No dislocation. Soft tissues: Unremarkable. Vasculature: Atherosclerotic calcification of the aorta with fusiform aneurysm and tortuosity of the distal infrarenal aorta, measuring up to 5 cm in AP diameter on sagittal reformatted imaging from 4.8 cm previously. The transverse diameter is relatively stable at 4 cm. There is similar eccentric atheromatous plaque noted posteriorly. No dissection or acute periaortic abnormality. The aneurysm extends to the iliac bifurcation but does not involve the iliac bifurcations. Lymph nodes: Unremarkable. No enlarged lymph nodes. IMPRESSION: 1. Moderate fluid distention of the stomach with retrograde fluid filling the small hiatal hernia and distal thoracic esophagus. No asymmetric mucosal thickening. The clinical significance of this finding is indeterminant. 2. No evidence for bowel obstruction with prominent fluid throughout the small bowel and throughout the colon without focal asymmetric mucosal thickening or diverticulitis. Findings are most consistent with enterocolitis and diarrheal disease. No free intraperitoneal fluid or pneumoperitoneum. 3. 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 The transverse diameter is relatively stable at 4 cm. There is similar eccentric atheromatous plaque noted posteriorly. No dissection or acute periaortic abnormality. The aneurysm extends to the iliac bifurcation but does not involve the iliac bifurcations. Continued routine surveillance recommended. Electronically signed by: Gerardo Ashford MD 10/20/23 21:33 PM Chest X-Ray 10/20/23 19:17 XR chest 1V portable HISTORY: 68 years-old Male vomiting acute nausea with vomiting and chest pain COMPARISON: 11/09/2021 TECHNIQUE: AP view of the chest FINDINGS: Cardiac silhouette is within normal limits. The lungs are clear. No pneumothorax or pleural effusion. The bones appear intact. IMPRESSION: No acute process. ACT 112: Negative or not required by law. The above report was generated using voice recognition software. It may contain grammatical, syntax or spelling errors. Electronically signed by: Rl Boland M.D. 10/21/2023 7:[address] 10/20/23 19:17 Exam(s): CT HEAD Without Contrast EXAM: CT Head Without Intravenous Contrast CLINICAL HISTORY: confusion. TECHNIQUE: Axial computed tomography images of the head/brain without intravenous contrast. CTDI is 36.79 mGy and DLP is 625.8 mGy-cm. Automated exposure control was utilized for the study. A dose lowering technique was utilized adhering to the principles of ALARA. COMPARISON: CT head without contrast dated 11/09/2021 FINDINGS: Brain: Unremarkable. No hemorrhage. No significant white matter disease. No edema. Ventricles: Unremarkable. No ventriculomegaly. Bones/joints: Unremarkable. No acute fracture. Soft tissues: No significant overlying acute traumatic soft tissue abnormality. No radiopaque foreign body. Sinuses: Unremarkable as visualized. No acute sinusitis. Mastoid air cells: Unremarkable as visualized. No mastoid effusion. IMPRESSION: No acute intracranial process or significant alteration from the prior examination. Electronically signed by: Gerardo Ashford MD 10/20/23 21:27 PM Pending Results Patient Have Any Pending Studies at Discharge: No Discharge Instructions Given to Patient (Per Discharging Provider) Check cbc and BMP at hospital follow up Total Time Total Time Spent Total Time Spent (In Minutes): 50 minutes
[2023-10-25 15:30] VITALS: TEMP 97.9; O2SAT 98
[2023-10-25 16:24] VITALS: BP 161/83; PULSE 94
== END 2023-10-25 16:50 | disposition home or self-care (01) | DRG 371 ==
LOC: ED 19:06 → SUATTDRO 23:46 → 2N 23:46

== ENCOUNTER 2025-02-17 09:32 | Inpatient (IN) ==
--- NOTE | 2025-02-17 09:39 | Emergency Department Note ---
Impression & Plan TIA (transient ischemic attack), Slurred speech, Anemia, CKD (chronic kidney disease) ED Provider Note NAME: JOYCELYN GANDARA AGE: 69 SEX: M : 1955 ARRIVES VIA: Ambulance INFORMANT: Patient ED PROVIDER(S): Ish Richards DO CHIEF COMPLAINT: Confused, slurred speech HPI: Patient is a 69-year-old male with a past medical history of COPD, hypertension, NSTEMI and previous CVA who presents to the ER for slurred speech and confusion. He woke up this morning around 6 AM to go hunting. He was normal at that time. He notes he had some trouble with his speech around 730. EMS was called and son presented. Son confirms that he is having some slurred speech and noted that he was confused at the time. Patient admits to mild headache. No change or loss of vision. No chest pain or shortness of breath. No nausea, vomiting but did have some diarrhea. No dysuria, urgency, or frequency. No other exacerbating or remitting factors. ADDITIONAL HISTORY OBTAINED: Per HPI Chronic Medical/Social Conditions Affecting Care: Per HPI PAST MEDICAL HISTORY:See Below PAST SURGICAL HISTORY:See Below FAMILY HISTORY:See Below SOCIAL HISTORY:See Below HOME MEDICATIONS:See Below ALLERGIES:See Below VITALS:See Below PHYSICAL EXAMINATION: GENERAL: Sitting up in bed, alert, well appearing, well nourished, no distress, non-toxic EYE EXAM: normal conjunctiva. PERRL and EOM's intact. OROPHARYNX: no exudate, no erythema, lips, buccal mucosa, and tongue normal and mucous membranes are moist NECK: supple, no nuchal rigidity, no adenopathy, non-tender LUNGS: Clear to auscultation. Normal chest wall mechanics HEART: no murmurs, S1 normal and S2 normal ABDOMEN: abdomen soft, non-tender, normo-active bowel sounds, no masses, no rebound or guarding. BACK: Back is symmetrical on inspection and there is no deformity, no midline tenderness, no CVA tenderness. SKIN: no rashes and no bruising UPPER EXTREMITIES: upper extremities are grossly normal. LOWER EXTREMITIES: No pitting edema. NEURO EXAM: Normal sensorium, cranial nerves II-XII intact, slurred speech, no weakness of arms, no weakness of legs. No drift. Finger to nose intact. Gross sensation intact. MEDICAL DECISION MAKING: Patient is a 69-year-old male who presents ER for slurred speech. Upon arrival he still had some mild slurred speech. IVs were established blood work was obtained. Stroke alert was called. Labs show no significant leukocytosis. Mild anemia 11.4. INR unremarkable. BMP with a creatinine 1.7 which is fairly consistent with previous. LFTs bilirubin troponin was negative. UA was clean. Alcohol negative. CT of the head as well as angios of the head and neck showed no obvious culprit lesion for the symptoms. Case was discussed with [facility] and they recommended admission and full workup. Discussed case with hospitalist for further evaluation management treatment. Not a candidate for TNK with his NIH of 1 for faint slurred speech. Consults/Care Managements Discussions: Per [facility] Triage Nursing notes reviewed. Limited review of prior medical records performed Vital Signs: reviewed and remarkable for no significant abnormalities Differential diagnosis: Differential diagnoses includes but is not limited to toxic, metabolic, infectious, traumatic, cardiac, neurologic, hematologic, psychiatric and inflammatory etiologies. ER treatment provided: See below Diagnostics interpreted by me include EKG and cardiac monitoring as listed below: -Cardiac Monitoring: An order was placed for continuous cardiac monitoring. The monitor shows a rate of 70 with sinus rhythm. -ECG: Sinus rhythm rate of 68 Left axis No PVCs QTc 416 -Laboratory studies:Interpreted by me as stated above in MDM and shown below. Imaging studies: Xrays: As interpreted by me:none CTs show: CT of the head per my pleurae interpretation showed no obvious large bleed CT of the head as well as angios of the head and neck were negative for any acute culprit lesion Procedures:none Critical Care: None Past Med/Surg History Problem List (Updated 02/17/25 @ 15:22 by Ish Richards DO) CKD (chronic kidney disease) (Acute) Anemia (Acute) Slurred speech (Acute) TIA (transient ischemic attack) (Acute) Dehydration (Acute) Influenza A (Acute) Acute exacerbation of chronic obstructive pulmonary disease (COPD) (Acute) Dyspnea (Acute) Abnormal CT scan of head History of cardioembolic cerebrovascular accident (CVA) (Acute) Headache (Acute) Left hand weakness (Acute) Hypokalemia HTN (hypertension) Acute alteration in mental status Transient confusion E coli enteritis Elevated troponin UGIB (upper gastrointestinal bleed) Non-ST elevation [place] (NSTEMI) (Acute) Nausea & vomiting (Acute) Hypomagnesemia (Acute) Acute hypokalemia (Acute) Generalized weakness (Acute) Microscopic hematuria Medical History AAA (abdominal aortic aneurysm) CVA (cerebral vascular accident) H/O: HTN (hypertension) GERD (gastroesophageal reflux disease) Surgical History No pertinent past surgical history Family History Other Family history non-contributory Social History Smoking Status: Former smoker Tobacco Type: Cigars Second Hand Exposure: No; Do You Dip or Chew Tobacco: No; Hx Alcohol Use: No Hx Substance Use: No Preferred Language: Maldivian Communication Ability: Effective 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 Beliefs That Will Affect Care: None Current Living Situation: Spouse Feels Safe at Home: Yes Assistive Devices: CPAP Allergies Allergies Allergy/AdvReac Type Severity Reaction Status Date / Time No Known Allergies Allergy Verified 06/27/24 11:32 Home Meds Home Medications Medication Instructions Recorded Confirmed hydrochlorothiazide 50 mg tablet 50 mg PO QAM 01/05/20 06/27/24 hydrocodone 10 mg-acetaminophen 1 tab PO QID PRN Pain 01/05/20 02/17/25 325 mg tablet escitalopram oxalate 20 mg tablet 20 mg PO DAILY 06/27/24 06/27/24 lisinopril 10 mg tablet 40 mg PO QAM 06/27/24 06/27/24 ropinirole 2 mg tablet 2 mg PO TID 06/27/24 06/27/24 hydralazine 50 mg tablet 50 mg PO BID 06/28/24 06/28/24 amlodipine 10 mg tablet 10 mg PO DAILY 01/25/25 cholecalciferol (vitamin D3) 25 25 mcg PO TID 01/25/25 mcg (1,000 unit) capsule ferrous sulfate 325 mg (65 mg 325 mg PO DAILY 01/25/25 iron) tablet,delayed release spironolactone 25 mg tablet 25 mg PO DAILY 01/25/25 Previous Rx's Medication Instructions Recorded aspirin 81 mg tablet,delayed 81 mg PO QAM #30 tabs 06/28/24 release atorvastatin 40 mg tablet (Lipitor) 40 mg PO HS #30 tabs 06/28/24 pantoprazole 40 mg tablet,delayed 40 mg PO QAM #30 tabs 06/28/24 release albuterol sulfate 90 mcg/actuation 2 inh inhalation Q4H PRN shortness 02/03/25 aerosol inhaler of breath or wheezing #6.7 grams prednisone 10 mg tablet See Rx Instructions .Route 02/03/25 .COMPLEX #15 tabs Results & Data (ED) Vital Signs Vital Signs - 24 hr 02/17/25 09:16 02/17/25 09:16 02/17/25 09:16 Pulse Rate 86 Pulse Rate from SpO2 Sensor Pulse Rhythm Regular Pulse Strength Normal Respiratory Rate 18 Respiratory Effort / Characteristics Non-Labored Spontaneous Respiratory Depth Normal Respiratory Pattern Regular Blood Pressure Blood Pressure Mean Pulse Oximetry 97 Oxygen Delivery Method Room Air Room Air Room Air Sepsis Recent Fever Within 48 Hours No Sepsis New/Unexplained Change in Mental Status No Sepsis Action Taken by Nursing No Action Required 02/17/25 09:57 02/17/25 10:12 02/17/25 10:13 Pulse Rate 55 L 50 L 48 L Pulse Rate from SpO2 Sensor 56 L 49 L Pulse Rhythm Pulse Strength Respiratory Rate 18 15 Respiratory Effort / Characteristics Respiratory Depth Respiratory Pattern Blood Pressure 120/66 Blood Pressure Mean 84 Pulse Oximetry 96 95 Oxygen Delivery Method Sepsis Recent Fever Within 48 Hours Sepsis New/Unexplained Change in Mental Status Sepsis Action Taken by Nursing 02/17/25 10:15 02/17/25 10:15 02/17/25 10:15 Pulse Rate Pulse Rate from SpO2 Sensor Pulse Rhythm Pulse Strength Respiratory Rate Respiratory Effort / Characteristics Respiratory Depth Respiratory Pattern Blood Pressure 111/66 111/66 111/66 Blood Pressure Mean 77 77 77 Pulse Oximetry Oxygen Delivery Method Sepsis Recent Fever Within 48 Hours Sepsis New/Unexplained Change in Mental Status Sepsis Action Taken by Nursing 02/17/25 10:15 02/17/25 10:15 02/17/25 10:15 Pulse Rate 47 L Pulse Rate from SpO2 Sensor 48 L Pulse Rhythm Pulse Strength Respiratory Rate 18 Respiratory Effort / Characteristics Respiratory Depth Respiratory Pattern Blood Pressure 111/66 111/66 Blood Pressure Mean 77 77 Pulse Oximetry 95 Oxygen Delivery Method Sepsis Recent Fever Within 48 Hours Sepsis New/Unexplained Change in Mental Status Sepsis Action Taken by Nursing 02/17/25 10:21 02/17/25 10:30 02/17/25 10:30 Pulse Rate 52 L Pulse Rate from SpO2 Sensor 58 L Pulse Rhythm Pulse Strength Respiratory Rate 16 Respiratory Effort / Characteristics Respiratory Depth Respiratory Pattern Blood Pressure 121/65 121/65 Blood Pressure Mean 85 85 Pulse Oximetry 95 Oxygen Delivery Method Sepsis Recent Fever Within 48 Hours Sepsis New/Unexplained Change in Mental Status Sepsis Action Taken by Nursing 02/17/25 10:30 02/17/25 10:30 02/17/25 10:42 Pulse Rate 55 L 58 L Pulse Rate from SpO2 Sensor 56 L 56 L Pulse Rhythm Pulse Strength Respiratory Rate 21 19 Respiratory Effort / Characteristics Respiratory Depth Respiratory Pattern Blood Pressure 121/65 Blood Pressure Mean 85 Pulse Oximetry 96 97 Oxygen Delivery Method Sepsis Recent Fever Within 48 Hours Sepsis New/Unexplained Change in Mental Status Sepsis Action Taken by Nursing 02/17/25 10:45 02/17/25 10:45 02/17/25 10:45 Pulse Rate 54 L Pulse Rate from SpO2 Sensor 55 L Pulse Rhythm Pulse Strength Respiratory Rate 14 Respiratory Effort / Characteristics Respiratory Depth Respiratory Pattern Blood Pressure 120/67 120/67 Blood Pressure Mean 101 101 Pulse Oximetry 97 Oxygen Delivery Method Sepsis Recent Fever Within 48 Hours Sepsis New/Unexplained Change in Mental Status Sepsis Action Taken by Nursing 02/17/25 10:45 02/17/25 10:51 02/17/25 11:01 Pulse Rate 58 L Pulse Rate from SpO2 Sensor 58 L Pulse Rhythm Pulse Strength Respiratory Rate 17 Respiratory Effort / Characteristics Respiratory Depth Respiratory Pattern Blood Pressure 120/67 130/69 Blood Pressure Mean 101 88 Pulse Oximetry 98 Oxygen Delivery Method Sepsis Recent Fever Within 48 Hours Sepsis New/Unexplained Change in Mental Status Sepsis Action Taken by Nursing 02/17/25 11:01 02/17/25 11:01 02/17/25 11:12 Pulse Rate 58 L Pulse Rate from SpO2 Sensor 56 L Pulse Rhythm Pulse Strength Respiratory Rate 19 Respiratory Effort / Characteristics Respiratory Depth Respiratory Pattern Blood Pressure 130/69 130/69 Blood Pressure Mean 88 88 Pulse Oximetry 97 Oxygen Delivery Method Sepsis Recent Fever Within 48 Hours Sepsis New/Unexplained Change in Mental Status Sepsis Action Taken by Nursing 02/17/25 11:15 02/17/25 11:16 02/17/25 11:16 Pulse Rate 59 L Pulse Rate from SpO2 Sensor 58 L Pulse Rhythm Pulse Strength Respiratory Rate 14 Respiratory Effort / Characteristics Respiratory Depth Respiratory Pattern Blood Pressure 128/72 128/72 Blood Pressure Mean 104 104 Pulse Oximetry 97 Oxygen Delivery Method Sepsis Recent Fever Within 48 Hours Sepsis New/Unexplained Change in Mental Status Sepsis Action Taken by Nursing 02/17/25 11:16 02/17/25 11:16 02/17/25 11:16 Pulse Rate Pulse Rate from SpO2 Sensor Pulse Rhythm Pulse Strength Respiratory Rate Respiratory Effort / Characteristics Respiratory Depth Respiratory Pattern Blood Pressure 128/72 128/72 128/72 Blood Pressure Mean 104 104 104 Pulse Oximetry Oxygen Delivery Method Sepsis Recent Fever Within 48 Hours Sepsis New/Unexplained Change in Mental Status Sepsis Action Taken by Nursing 02/17/25 11:21 02/17/25 11:30 02/17/25 11:30 Pulse Rate 54 L Pulse Rate from SpO2 Sensor 54 L Pulse Rhythm Pulse Strength Respiratory Rate 16 Respiratory Effort / Characteristics Respiratory Depth Respiratory Pattern Blood Pressure 143/89 H 143/89 H Blood Pressure Mean 125 125 Pulse Oximetry 97 Oxygen Delivery Method Sepsis Recent Fever Within 48 Hours Sepsis New/Unexplained Change in Mental Status Sepsis Action Taken by Nursing 02/17/25 11:30 02/17/25 11:30 02/17/25 11:30 Pulse Rate Pulse Rate from SpO2 Sensor Pulse Rhythm Pulse Strength Respiratory Rate Respiratory Effort / Characteristics Respiratory Depth Respiratory Pattern Blood Pressure 143/89 H 143/89 H 143/89 H Blood Pressure Mean 125 125 125 Pulse Oximetry Oxygen Delivery Method Sepsis Recent Fever Within 48 Hours Sepsis New/Unexplained Change in Mental Status Sepsis Action Taken by Nursing 02/17/25 11:30 02/17/25 14:30 02/17/25 14:31 Pulse Rate 62 58 L 58 L Pulse Rate from SpO2 Sensor 59 L 58 L Pulse Rhythm Pulse Strength Respiratory Rate 21 23 Respiratory Effort / Characteristics Respiratory Depth Respiratory Pattern Blood Pressure Blood Pressure Mean Pulse Oximetry 94 96 Oxygen Delivery Method Sepsis Recent Fever Within 48 Hours Sepsis New/Unexplained Change in Mental Status Sepsis Action Taken by Nursing 02/17/25 14:31 02/17/25 14:31 02/17/25 14:31 Pulse Rate Pulse Rate from SpO2 Sensor Pulse Rhythm Pulse Strength Respiratory Rate Respiratory Effort / Characteristics Respiratory Depth Respiratory Pattern Blood Pressure 140/79 140/79 140/79 Blood Pressure Mean 97 97 97 Pulse Oximetry Oxygen Delivery Method Sepsis Recent Fever Within 48 Hours Sepsis New/Unexplained Change in Mental Status Sepsis Action Taken by Nursing 02/17/25 14:31 02/17/25 14:31 02/17/25 14:42 Pulse Rate 65 Pulse Rate from SpO2 Sensor 66 Pulse Rhythm Pulse Strength Respiratory Rate 17 Respiratory Effort / Characteristics Respiratory Depth Respiratory Pattern Blood Pressure 140/79 140/79 Blood Pressure Mean 97 97 Pulse Oximetry 97 Oxygen Delivery Method Sepsis Recent Fever Within 48 Hours Sepsis New/Unexplained Change in Mental Status Sepsis Action Taken by Nursing Laboratory Data 02/17/25 09:37 02/17/25 09:37 Lab Results 02/17/25 02/17/25 02/17/25 Range/Units 09:37 09:41 11:45 WBC 7.44 (4.8-10.8) K/ul RBC 3.88 L (4.70-6.10) M/uL Hgb 11.4 L (14.0-18.0) g/dL Hct 33.0 L (42.0-52.0) % MCV 85.1 (80.0-100.0) fL MCH 29.4 (25.0-34.0) pg MCHC 34.5 (32.0-36.0) g/dL RDW Std Deviation 40.5 (36.4-46.3) fL RDW Coeff of Zander 13.2 (11.5-14.5) % Plt Count 124 L (130-400) K/uL MPV 10.3 (9.4-12.4) fL Immature Gran % (Auto) 1.5 % Neut % (Auto) 80.4 % Lymph % (Auto) 12.6 % Collin % (Auto) 3.8 % Eos % (Auto) 0.9 % Baso % (Auto) 0.8 % Neut # (Auto) 5.98 (1.40-6.50) K/uL Lymph # (Auto) 0.94 L (1.20-3.40) K/uL Collin # (Auto) 0.28 (0.11-0.59) K/uL Eos # (Auto) 0.07 (0.00-0.50) K/uL Baso # (Auto) 0.06 (0.00-0.20) K/uL Immature Gran # (Auto) 0.11 (0.01-0.20) K/uL PT 10.6 (9.0-12.0) Seconds INR 1.0 (0.9-1.1) APTT 23 (21-31) Seconds PTT Ratio 0.8 Sodium 138 (136-145) mmol/L Potassium 4.1 (3.5-5.1) mmol/L Chloride 108 H (98-107) mmol/L Carbon Dioxide 23 (21-32) mmol/L Anion Gap 7 (3-11) BUN 28 H (6-23) mg/dl Creatinine 1.71 H (0.6-1.4) mg/dl Est Cr Clr Drug Dosing 46.6 ml/min eGFR 42.53 BUN/Creatinine Ratio 16.4 (10-20) Glucose 172 H (70-99(Fasting)) mg/dl POC Glucose 187 H (70-99) mg/dl Calcium 8.8 (8.6-10.3) mg/dl Magnesium 2.0 (1.7-2.4) mg/dl Total Bilirubin 0.3 (0.2-1.0) mg/dl AST 20 (13-39) U/L ALT 16 (7-52) U/L Alkaline Phosphatase 52 (34-104) U/L Troponin I High Sens 8.1 (0-20) pg/ml Total Protein 6.7 (6.0-8.3) gm/dl Albumin 3.8 (3.4-5.0) gm/dl Globulin 2.9 (2.5-4.0) gm/dl Albumin/Globulin Ratio 1.3 (0.9-2) Urine Color Yellow Urine Appearance Clear (Clear) Urine pH 5.5 (4.5-7.5) Ur Specific [place] > 1.045 H (1.000-1.030) Urine Protein Negative (Negative) Urine Glucose (UA) Negative (Negative) Urine Ketones Negative (Negative) Urine Blood Negative (Negative) Urine Nitrite Negative (Negative) Urine Bilirubin Negative (Negative) Urine Urobilinogen Negative (Negative) Ur Leukocyte Esterase Negative (Negative) Urine Comment Ethyl Alcohol mg/dL < 10.0 (<10.0) mg/dl Administered Medications Discontinued Medications Aspirin (Aspirin Chew 324 Mg) 324 mg PO NOW STA Stop: 02/17/25 12:15 Last Admin: 02/17/25 14:30 Dose: 324 mg Documented By: viviana Aspirin (Aspirin Chew 324 Mg) Confirm Administered Dose 324 mg .ROUTE .STK-MED ONE Stop: 02/17/25 14:26 Last Admin: 02/17/25 14:31 Dose: Not Given Documented By: nrs Ioversol (Optiray 320 125ml) 118 ml IV ONCE ONE Stop: 02/17/25 09:50 Last Admin: 02/17/25 09:49 Dose: 118 ml Documented By: [facility] Imaging Data Radiologist's Impression: Head CT 02/17/25 09:37 Clinical History: Slurred speech and confusion Technique: Axial computed tomography images were obtained of the brain without intravenous contrast. Comparison is made to the MRI dated 06/27/2024 Findings: There is diffuse cerebral atrophy, within expected limits for the patient's age. Areas of decreased attenuation are seen within the periventricular white matter, likely representing chronic small vessel ischemic disease. There is an unchanged old infarct of the left thalamus. There is no definite sign of acute infarction. No intracranial hemorrhage is evident. No definite mass lesion is seen on this noncontrast examination. There is no midline shift or other form of herniation. No hydrocephalus is seen. No fracture is identified. There is mucosal thickening in the maxillary sinuses, left more than right. The mastoid air cells appear clear. Impression: 1. Cerebral atrophy and chronic small vessel ischemic disease 2. Old thalamic infarct 3. Maxillary sinusitis Electronically signed by Eduard Rinaldi 02-17-2025 10:11 AM Head CTA 02/17/25 09:37 Clinical History: Slurred speech and confusion Technique: Axial computed tomography images were obtained of the brain after the administration of intravenous contrast according to the CT angiogram protocol Findings: No definite stenosis or aneurysm is seen of the anterior, middle, or posterior cerebral artery circulations. The visualized vertebral arteries and the basilar artery appear unremarkable Impression: No definite stenosis or aneurysm of the intracranial arteries Electronically signed by Eduard Rinaldi 02-17-2025 10:13 AM Neck CTA 02/17/25 09:37 Clinical History: Slurred speech and confusio Technique: Axial computed tomography images were obtained of the neck after the administration of intravenous contrast according to the CT angiogram protocol Comparison is made to the prior CTA dated 06/27/2024 Findings: No stenosis is seen of the common carotid arteries bilaterally. There is a mild stenosis of the left carotid bulb and proximal left internal carotid artery with approximately 30% diameter narrowing. There is an approximately 50% stenosis of the proximal right internal carotid artery. There are mild stenoses of the proximal external carotid arteries bilaterally. The vertebral arteries are patent bilaterally with no significant stenosis seen. The visualized thoracic aorta appears unremarkable There is multilevel degenerative disc disease and osteoarthritis of the cervical spine. There is an apparent calcified nodule in the left thyroid lobe Impression: 1. Approximately 50% stenosis of the proximal right ICA 2. Approximately 30% stenosis of the left carotid bulb and proximal left ICA 3. Mild stenoses of the proximal ECA bilaterally 4. Indeterminate thyroid nodule. A follow-up thyroid ultrasound could be obtained ACT 112: Positive. There are findings on this exam that require communication between the performing entity and the patient following Patient Test Result Information Act ([place] ACT 112) guidelines. Electronically signed by Eduard Rinaldi 02-17-2025 10:17 AM Discharge Plan Visit Data Chief Complaint: Weakness Stated Complaint: WEAKNESS ED Provider: Ish Richards Discharge Problem: TIA (transient ischemic attack), Slurred speech, Anemia, CKD (chronic kidney disease) Condition: Fair Forms Stand Alone Forms: [facility] Decisyon Prescriptions Prescriptions: No Action amlodipine 10 mg tablet 10 mg PO DAILY cholecalciferol (vitamin D3) 25 mcg (1,000 unit) capsule 25 mcg PO TID ferrous sulfate 325 mg (65 mg iron) tablet,delayed release (DR/EC) 325 mg PO DAILY spironolactone 25 mg tablet 25 mg PO DAILY hydrochlorothiazide 50 mg tablet 50 mg PO QAM hydrocodone-acetaminophen 10-325 mg tablet 1 tab PO QID PRN (Reason: Pain) lisinopril 10 mg tablet 40 mg PO QAM ropinirole 2 mg Tablet 2 mg PO TID escitalopram oxalate 20 mg Tablet 20 mg PO DAILY hydralazine 50 mg tablet 50 mg PO BID aspirin 81 mg Tablet,Delayed Release (Dr/Ec) 81 mg PO QAM Qty: 30 3RF pantoprazole 40 mg Tablet,Delayed Release (Dr/Ec) 40 mg PO QAM Qty: 30 2RF atorvastatin [Lipitor] 40 mg tablet 40 mg PO HS Qty: 30 1RF prednisone 10 mg tablet See Rx Instructions .ROUTE .COMPLEX Qty: 15 0RF Rx Instructions: Take 5 tabs by mouth on day 1, then 4 tabs on day 2, then 3 tabs on day 3, then decrease by 1 tab daily until complete albuterol sulfate 90 mcg/actuation HFA aerosol inhaler 2 inh inhalation Q4H PRN (Reason: shortness of breath or wheezing) Qty: 6.7 0RF Referrals Referrals: Adan Siegel PA-C [Primary Care Provider] - Discharge Problem: Anemia Qualifiers: Anemia type: unspecified type Qualified Code(s): D64.9 - Anemia, unspecified CKD (chronic kidney disease) Qualifiers: Chronic kidney disease stage: unspecified stage Qualified Code(s): N18.9 - Chronic kidney disease, unspecified
[2025-02-17] MEDS: OPTIRAY 320 125ml IV ONE (09:49)
--- NOTE | 2025-02-17 10:12 | CT Scan Report ---
Clinical History: Slurred speech and confusion Technique: Axial computed tomography images were obtained of the brain without intravenous contrast. Comparison is made to the MRI dated 06/27/2024 Findings: There is diffuse cerebral atrophy, within expected limits for the patient's age. Areas of decreased attenuation are seen within the periventricular white matter, likely representing chronic small vessel ischemic disease. There is an unchanged old infarct of the left thalamus. There is no definite sign of acute infarction. No intracranial hemorrhage is evident. No definite mass lesion is seen on this noncontrast examination. There is no midline shift or other form of herniation. No hydrocephalus is seen. No fracture is identified. There is mucosal thickening in the maxillary sinuses, left more than right. The mastoid air cells appear clear. Impression: 1. Cerebral atrophy and chronic small vessel ischemic disease 2. Old thalamic infarct 3. Maxillary sinusitis Electronically signed by Eduard Rinaldi 02-17-2025 10:11 AM
--- NOTE | 2025-02-17 10:14 | CT Scan Report ---
Clinical History: Slurred speech and confusion Technique: Axial computed tomography images were obtained of the brain after the administration of intravenous contrast according to the CT angiogram protocol Findings: No definite stenosis or aneurysm is seen of the anterior, middle, or posterior cerebral artery circulations. The visualized vertebral arteries and the basilar artery appear unremarkable Impression: No definite stenosis or aneurysm of the intracranial arteries Electronically signed by Eduard Rinaldi 02-17-2025 10:13 AM
--- NOTE | 2025-02-17 10:17 | CT Scan Report ---
Clinical History: Slurred speech and confusio Technique: Axial computed tomography images were obtained of the neck after the administration of intravenous contrast according to the CT angiogram protocol Comparison is made to the prior CTA dated 06/27/2024 Findings: No stenosis is seen of the common carotid arteries bilaterally. There is a mild stenosis of the left carotid bulb and proximal left internal carotid artery with approximately 30% diameter narrowing. There is an approximately 50% stenosis of the proximal right internal carotid artery. There are mild stenoses of the proximal external carotid arteries bilaterally. The vertebral arteries are patent bilaterally with no significant stenosis seen. The visualized thoracic aorta appears unremarkable There is multilevel degenerative disc disease and osteoarthritis of the cervical spine. There is an apparent calcified nodule in the left thyroid lobe Impression: 1. Approximately 50% stenosis of the proximal right ICA 2. Approximately 30% stenosis of the left carotid bulb and proximal left ICA 3. Mild stenoses of the proximal ECA bilaterally 4. Indeterminate thyroid nodule. A follow-up thyroid ultrasound could be obtained ACT 112: Positive. There are findings on this exam that require communication between the performing entity and the patient following Patient Test Result Information Act ([place] ACT 112) guidelines. Electronically signed by Eduard Rinaldi 02-17-2025 10:17 AM
[2025-02-17 10:33] LABS: Hematocrit (blood only) 33.0 % (42.0-52.0); Hemoglobin 11.4 g/dL (14.0-18.0); Immature Granulocytes # (auto) 0.11 K/uL (0.01-0.20); Immature Granulocytes % (auto) 1.5 %; Mean Corpuscular Hemoglobin 29.4 pg (25.0-34.0); Mean Corpuscular Volume 85.1 fL (80.0-100.0); Platelet Count 124 K/uL (130-400); RDW Standard Deviation 40.5 fL (36.4-46.3); Red Blood Count 3.88 M/uL (4.70-6.10); White Blood Count 7.44 K/ul (4.8-10.8)
[2025-02-17 10:37] LABS: Alanine Aminotransferase 16.0 U/L (7-52); Albumin Globulin Ratio 1.3 (0.9-2); Albumin Level 3.8 gm/dl (3.4-5.0); Alkaline Phosphatase 52.0 U/L (34-104); Anion Gap 7.0 (3-11); Bilirubin,Total 0.3 mg/dl (0.2-1.0); Blood Urea Nitrogen 28.0 mg/dl (6-23); Calcium 8.8 mg/dl (8.6-10.3); Carbon Dioxide 23.0 mmol/L (21-32); Chloride 108.0 mmol/L (98-107); Creatinine Clr Calc Pharmacy 46.6 ml/min; Globulin 2.9 gm/dl (2.5-4.0); Glucose 172.0 mg/dl (70-99(Fasting)); Magnesium 2.0 mg/dl (1.7-2.4); Potassium 4.1 mmol/L (3.5-5.1); Sodium 138.0 mmol/L (136-145); Total Protein 6.7 gm/dl (6.0-8.3)
[2025-02-17 10:39] LABS: INR 1.0 (0.9-1.1); Partial Thromboplastin Time 23 Seconds (21-31); Prothrombin Time 10.6 Seconds (9.0-12.0)
--- NOTE | 2025-02-17 12:03 | History & Physical Report ---
Date of Service February 17, 2025 Assessment & Plan (1) History of cardioembolic cerebrovascular accident (CVA): (2) Acute exacerbation of chronic obstructive pulmonary disease (COPD): (3) Left hand weakness: (4) HTN (hypertension): (5) Acute alteration in mental status: (6) Transient confusion: (7) AAA (abdominal aortic aneurysm): (8) GERD (gastroesophageal reflux disease): Plan #Strokelike symptoms #History of CVA #Altered mental status #Carotid stenosis - Worsening left facial droop, confusion, speech deficits, very consistent with prior episodes. Initial stroke workup and neurology consult in the emergency department thus far unrevealing. Not a candidate for tPA as his symptoms have completely resolved -Admit PCU, initial stroke bundle order set, MRI brain. Continue aspirin. Neurology consult. Previously on Aggrenox but has not been for quite some time. -Permissive hypertension, bedside swallow, cardiac diet, high-dose statin. - Seizure precautions, consideration for EEG with any recurrence of symptoms #Abdominal aortic aneurysm #Atherosclerotic disease - Blood pressure management per stroke protocol, continue statin as noted above. No abdominal pain or indication for acute imaging from an aneurysm standpoint #COPD #Recent influenza -At baseline at this time,-continue home inhalers, consider respiratory therapy consult, stress dose given his recent influenza #Hypertension - Continue lisinopril, hold hydralazine, hold hydrochlorothiazide, continue Aldactone, hold Norvasc #GERD - Continue Protonix #Anxiety depression -Continue escitalopram #FEN -Bedside swallow adequate, cardiac/heart healthy diet #CODE STATUS - Full code per his wishes, no wishes for prolonged artificial life sustaining measures History of Present Illness Chief Complaint: Weakness/Slurred speech Primary Care Provider: Adan Siegel 69-year-old male with a past medical history of COPD, hypertension, NSTEMI and previous CVA who presents to the ER for slurred speech and confusion. He woke up this morning around 6 AM to go hunting. He was normal at that time. He notes he had some trouble with his speech around 730. EMS was called and son presented. Son confirms that he is having some slurred speech and noted that he was confused at the time, he has chronic left facial droop but son throught it was worse. Patient admits to mild headache. No change or loss of vision. No chest pain or shortness of breath. No nausea, vomiting but did have some diarrhea. No dysuria, urgency or frequency. No other exacerbating or remitting factors. EMS was contacted and he was coming to when they arrived. Entire event was 30 to 45 minutes. He has no recall of the time during the event. Very similar to prior stroke symptoms. Recent relevant history, was very ill with influenza A last week. Has been feeling much better over the last several days. No residual or recurrent symptoms. Also of note he was waiting on the hunting truck for his son's he was actually not in the [place] this morning but first had a episode of stool incontinence for which he drove home. When he drove back to the house this morning the event started. Allergies Allergy/AdvReac Type Severity Reaction Status Date / Time No Known Allergies Allergy Verified 06/27/24 11:32 Home Medications Medication Instructions Recorded Confirmed Type hydrochlorothiazide 50 mg tablet 50 mg PO QAM 01/05/20 06/27/24 History hydrocodone 10 mg-acetaminophen 1 tab PO QID PRN Pain 01/05/20 06/27/24 History 325 mg tablet escitalopram oxalate 20 mg tablet 20 mg PO DAILY 06/27/24 06/27/24 History lisinopril 10 mg tablet 40 mg PO QAM 06/27/24 06/27/24 History ropinirole 2 mg tablet 2 mg PO TID 06/27/24 06/27/24 History aspirin 81 mg tablet,delayed 81 mg PO QAM #30 tabs 06/28/24 Rx release atorvastatin 40 mg tablet (Lipitor) 40 mg PO HS #30 tabs 06/28/24 Rx hydralazine 50 mg tablet 50 mg PO BID 06/28/24 06/28/24 History pantoprazole 40 mg tablet,delayed 40 mg PO QAM #30 tabs 06/28/24 Rx release amlodipine 10 mg tablet 10 mg PO DAILY 01/25/25 History cholecalciferol (vitamin D3) 25 25 mcg PO TID 01/25/25 History mcg (1,000 unit) capsule ferrous sulfate 325 mg (65 mg 325 mg PO DAILY 01/25/25 History iron) tablet,delayed release spironolactone 25 mg tablet 25 mg PO DAILY 01/25/25 History albuterol sulfate 90 mcg/actuation 2 inh inhalation Q4H PRN shortness 02/03/25 Rx aerosol inhaler of breath or wheezing #6.7 grams prednisone 10 mg tablet See Rx Instructions .Route 02/03/25 Rx .COMPLEX #15 tabs Past Med/Surg History Problem List (Updated 02/03/25 @ 04:46 by Celine Landaverde DO) Dehydration (Acute) Influenza A (Acute) Acute exacerbation of chronic obstructive pulmonary disease (COPD) (Acute) Dyspnea (Acute) Abnormal CT scan of head History of cardioembolic cerebrovascular accident (CVA) (Acute) Headache (Acute) Left hand weakness (Acute) Hypokalemia HTN (hypertension) Acute alteration in mental status Transient confusion E coli enteritis Elevated troponin UGIB (upper gastrointestinal bleed) Non-ST elevation [place] (NSTEMI) (Acute) Nausea & vomiting (Acute) Hypomagnesemia (Acute) Acute hypokalemia (Acute) Generalized weakness (Acute) Microscopic hematuria Medical History AAA (abdominal aortic aneurysm) CVA (cerebral vascular accident) H/O: HTN (hypertension) GERD (gastroesophageal reflux disease) Surgical History No pertinent past surgical history Family History Other Family history non-contributory Social History Smoking Status: Former smoker Tobacco Type: Cigars Second Hand Exposure: No; Do You Dip or Chew Tobacco: No; Hx Alcohol Use: No Hx Substance Use: No Preferred Language: Bulgarian Communication Ability: Effective Leather Fitter Required: No Beliefs That Will Affect Care: None Current Living Situation: Spouse Feels Safe at Home: Yes Assistive Devices: CPAP Review of Systems Review of Systems: Aside from HPI a full 10 point ROS was negative Physical Exam Physical Exam: GENERAL: Sitting up in bed, alert, well appearing, well nourished, no distress, non-toxic, able to walk to bathroom unassisted EYE EXAM: normal conjunctiva. PERRL and EOM's intact. OROPHARYNX: no exudate, no erythema, lips, buccal mucosa, and tongue normal and mucous membranes are moist NECK: supple, no nuchal rigidity, no adenopathy, non-tender LUNGS: Clear to auscultation. Normal chest wall mechanics HEART: no murmurs, S1 normal and S2 normal ABDOMEN: abdomen soft, non-tender, normo-active bowel sounds, no masses, no rebound or guarding. SKIN: no rashes and no bruising EXTREMITIES: No pitting edema. NEURO EXAM: Normal sensorium, mild dysarthia is bseline per family, chronic left facial droop back to baseline per sons. no weakness of arms, no weakness of legs. No drift. Finger to nose intact. Gross sensation intact. Babinsky negative. Results & Data Results & Data Vital Signs (Past 12 Hours) Vital Signs Pulse Resp BP Pulse Ox O2 Del Method 02/17/25 10:21 52 L 16 95 02/17/25 10:15 47 L 18 95 02/17/25 10:15 11102/17/25 10:15 11102/17/25 10:15 11102/17/25 10:15 11102/17/25 10:15 11102/17/25 10:13 48 L 02/17/25 10:12 50 L 15 95 02/17/25 09:57 55 L 18 120/66 96 02/17/25 09:16 Room Air 02/17/25 09:16 Room Air 02/17/25 09:16 86 18 97 Room Air Laboratory Results 02/17/25 02/17/25 02/17/25 11:45 09:41 09:37 WBC 7.44 RBC 3.88 L Hgb 11.4 L Hct 33.0 L MCV 85.1 MCH 29.4 MCHC 34.5 RDW Std Deviation 40.5 RDW Coeff of Zander 13.2 Plt Count 124 L MPV 10.3 Immature Gran % (Auto) 1.5 Neut % (Auto) 80.4 Lymph % (Auto) 12.6 [place] % (Auto) 3.8 Eos % (Auto) 0.9 Baso % (Auto) 0.8 Neut # (Auto) 5.98 Lymph # (Auto) 0.94 L [place] # (Auto) 0.28 Eos # (Auto) 0.07 Baso # (Auto) 0.06 Immature Gran # (Auto) 0.11 PT 10.6 INR 1.0 APTT 23 PTT Ratio 0.8 Sodium 138 Potassium 4.1 Chloride 108 H Carbon Dioxide 23 Anion Gap 7 BUN 28 H Creatinine 1.71 H Est Cr Clr Drug Dosing 46.6 eGFR 42.53 BUN/Creatinine Ratio 16.4 Glucose 172 H POC Glucose 187 H Calcium 8.8 Magnesium 2.0 Total Bilirubin 0.3 AST 20 ALT 16 Alkaline Phosphatase 52 Troponin I High Sens 8.1 Total Protein 6.7 Albumin 3.8 Globulin 2.9 Albumin/Globulin Ratio 1.3 Urine Color Yellow Urine Appearance Clear Urine pH 5.5 Ur Specific [place] > 1.045 H Urine Protein Negative Urine Glucose (UA) Negative Urine Ketones Negative Urine Blood Negative Urine Nitrite Negative Urine Bilirubin Negative Urine Urobilinogen Negative Ur Leukocyte Esterase Negative Urine Comment Ethyl Alcohol mg/dL < 10.[address] 02/17/25 09:37 Clinical History: Slurred speech and confusion Technique: Axial computed tomography images were obtained of the brain without intravenous contrast. Comparison is made to the MRI dated 06/27/2024 Findings: There is diffuse cerebral atrophy, within expected limits for the patient's age. Areas of decreased attenuation are seen within the periventricular white matter, likely representing chronic small vessel ischemic disease. There is an unchanged old infarct of the left thalamus. There is no definite sign of acute infarction. No intracranial hemorrhage is evident. No definite mass lesion is seen on this noncontrast examination. There is no midline shift or other form of herniation. No hydrocephalus is seen. No fracture is identified. There is mucosal thickening in the maxillary sinuses, left more than right. The mastoid air cells appear clear. Impression: 1. Cerebral atrophy and chronic small vessel ischemic disease 2. Old thalamic infarct 3. Maxillary sinusitis Electronically signed by Eduard Rinaldi 02-17-2025 10:11 AM Head CTA 02/17/25 09:37 Clinical History: Slurred speech and confusion Technique: Axial computed tomography images were obtained of the brain after the administration of intravenous contrast according to the CT angiogram protocol Findings: No definite stenosis or aneurysm is seen of the anterior, middle, or posterior cerebral artery circulations. The visualized vertebral arteries and the basilar artery appear unremarkable Impression: No definite stenosis or aneurysm of the intracranial arteries Electronically signed by Eduard Rinaldi 02-17-2025 10:13 AM Neck CTA 02/17/25 09:37 Clinical History: Slurred speech and confusio Technique: Axial computed tomography images were obtained of the neck after the administration of intravenous contrast according to the CT angiogram protocol Comparison is made to the prior CTA dated 06/27/2024 Findings: No stenosis is seen of the common carotid arteries bilaterally. There is a mild stenosis of the left carotid bulb and proximal left internal carotid artery with approximately 30% diameter narrowing. There is an approximately 50% stenosis of the proximal right internal carotid artery. There are mild stenoses of the proximal external carotid arteries bilaterally. The vertebral arteries are patent bilaterally with no significant stenosis seen. The visualized thoracic aorta appears unremarkable There is multilevel degenerative disc disease and osteoarthritis of the cervical spine. There is an apparent calcified nodule in the left thyroid lobe Impression: 1. Approximately 50% stenosis of the proximal right ICA 2. Approximately 30% stenosis of the left carotid bulb and proximal left ICA 3. Mild stenoses of the proximal ECA bilaterally 4. Indeterminate thyroid nodule. A follow-up thyroid ultrasound could be obtained ACT 112: Positive. There are findings on this exam that require communication between the performing entity and the patient following Patient Test Result Information Act ([place] ACT 112) guidelines. Electronically signed by Eduard Rinaldi 02-17-2025 10:17 AM ECG Additional Comments: Left axis deviation, LVH by minimal voltage criteria PG Care Time/CCT Total # of Minutes Spent Total Time Spent with Patient: Total time spent is greater than 50% in coordination of care (as documented) at patient's floor/unit and/or counseling patient: Coding Level of Care Code 79612 INT INP/OBS CARE 2/55MIN Diagnoses History of cardioembolic cerebrovascular accident (CVA) Z86.73 Acute exacerbation of chronic obstructive pulmonary disease (COPD) J44.1 Left hand weakness R29.898 Hypertension, unspecified type I10 Hypertension type: unspecified Acute alteration in mental status R41.82 Transient confusion R41.0 AAA (abdominal aortic aneurysm) I71.4 GERD (gastroesophageal reflux disease) K21.9 (4) HTN (hypertension) Hypertension type: unspecified Qualified Code(s): I10 - Essential (primary) hypertension
[2025-02-17 12:04] LABS: Appearance Urine Clear (Clear); Glucose Urine UA Negative (Negative)
[2025-02-17] MEDS: ASPIRIN CHEW 324 MG PO STA (14:30)
[2025-02-17] MEDS: ASPIRIN CHEW 324 MG ONE (14:31)
[2025-02-17] MEDS ORDERED: PHARMACIST DISCHARGE MED REC CONSULT PRN (15:53)
[2025-02-17] MEDS ORDERED: ACETAMINOPHEN 325 MG TAB PO PRN (15:53)
[2025-02-17] MEDS ORDERED: POLYETHYLENE (MIRALAX) 17 GM PACK PO PRN (15:53)
[2025-02-17] MEDS ORDERED: ALBUTEROL HFA 8 GM INHALER INH PRN (15:53)
[2025-02-17] MEDS ORDERED: MELATONIN 3 MG TAB PO PRN (15:53)
[2025-02-17] MEDS ORDERED: ONDANSETRON INJ 2 MG/ML 2 ML VIAL IV PRN (15:53)
[2025-02-17] MEDS: GADOBUTROL 30ML VIAL IV ONE (20:04)
[2025-02-17] MEDS: CHOLECALCIFEROL 25 MCG (1000 UNITS) TAB PO SCH (20:30)
[2025-02-17] MEDS: ATORVASTATIN 40 MG TAB PO SCH (20:31)
[2025-02-17] MEDS: HEPARIN SOD 5,000 UNIT/0.5 ML VIAL SQ SCH (20:31)
--- NOTE | 2025-02-17 22:51 | Magnetic Resonance Report ---
Exam(s): MRI HEAD W/WO Contrast EXAM: MR Head Without and With Intravenous Contrast CLINICAL HISTORY: Reason for exam: Stroke. TECHNIQUE: Magnetic resonance images of the head/brain without and with intravenous contrast in multiple planes. CONTRAST: Contrast must be dictated COMPARISON: Prior head CT from February 17, 2025. FINDINGS: Brain: Moderate nonspecific white matter changes. No mass. No hemorrhage. No acute infarct. The flow voids at the base of the brain are intact. Normal enhancement of brain parenchyma. Right cerebellar tonsillar ectopia. Ventricles: Unremarkable. No ventriculomegaly. Bones/joints: Unremarkable. No acute fracture. Sinuses: Chronic maxillary and ethmoid sinusitis. No acute sinusitis. Mastoid air cells: Unremarkable as visualized. No mastoid effusion. Orbits: Unremarkable as visualized. IMPRESSION: No evidence of acute intracranial pathology. Electronically signed by: Anh Padilla MD 02/17/25 22:50 PM
[2025-02-18 07:17] LABS: Hematocrit (blood only) 32.4 % (42.0-52.0); Hemoglobin 11.1 g/dL (14.0-18.0); Immature Granulocytes # (auto) 0.07 K/uL (0.01-0.20); Immature Granulocytes % (auto) 1.3 %; Mean Corpuscular Hemoglobin 28.9 pg (25.0-34.0); Mean Corpuscular Volume 84.4 fL (80.0-100.0); Platelet Count 120 K/uL (130-400); RDW Standard Deviation 40.3 fL (36.4-46.3); Red Blood Count 3.84 M/uL (4.70-6.10); White Blood Count 5.52 K/ul (4.8-10.8)
[2025-02-18 07:49] LABS: Hemoglobin A1C 6.2 % (4.5-5.6)
[2025-02-18 07:59] LABS: Alanine Aminotransferase 15.0 U/L (7-52); Albumin Globulin Ratio 1.4 (0.9-2); Albumin Level 3.8 gm/dl (3.4-5.0); Alkaline Phosphatase 39.0 U/L (34-104); Anion Gap 8.0 (3-11); Bilirubin,Total 0.4 mg/dl (0.2-1.0); Blood Urea Nitrogen 24.0 mg/dl (6-23); Calcium 8.7 mg/dl (8.6-10.3); Carbon Dioxide 23.0 mmol/L (21-32); Chloride 107.0 mmol/L (98-107); Cholesterol 148.0 mg/dl (0-200); Creatinine Clr Calc Pharmacy 52.5 ml/min; Globulin 2.7 gm/dl (2.5-4.0); Glucose 113.0 mg/dl (70-99(Fasting)); HDL Cholesterol 30.0 mg/dl; Magnesium 1.9 mg/dl (1.7-2.4); Potassium 3.9 mmol/L (3.5-5.1); Sodium 138.0 mmol/L (136-145); Total Protein 6.5 gm/dl (6.0-8.3); Triglycerides 390.0 mg/dl (0-150)
[2025-02-18] MEDS: SPIRONOLACTONE 25 MG TAB PO SCH (09:38)
[2025-02-18] MEDS: ASPIRIN 81 MG ECTAB PO SCH (09:39)
[2025-02-18] MEDS: FERROUS SULFATE 325 MG TAB PO SCH (09:40)
[2025-02-18] MEDS: ESCITALOPRAM OXALATE 20 MG TAB PO SCH (09:40)
--- NOTE | 2025-02-18 09:52 | Neurology Consultation ---
Date of Consultation February 18, 2025 Assessment & Plan (1) TIA (transient ischemic attack): Presented with 1 hour of symptoms consistent with slurring of speech left facial tingling and also facial droop. Back to baseline. Takes aspirin 81 mg daily. Risk factors for stroke/TIA includes hypertension dysglycemia hyperlipidemia hypertriglyceridemia and also age. (2) H/O: HTN (hypertension): Take medications for this. Currently blood pressure is mildly elevated due to permissive hypertensive control (3) Dysglycemia: Abnormal A1c does not have a history of diabetes per chart review and does not take any medicines for blood glucose. (4) Slurred speech: Currently resolved. (5) History of cardioembolic cerebrovascular accident (CVA): Diagnosed with stroke back in 2009 treated with Aggrenox currently only takes aspirin 81 mg daily. Plan 1-Transient ischemic attack: Symptoms resolved now. NIH stroke scale is 0. Patient has risk factors for stroke. Plan: -Reviewed studies no flow-limiting stenosis found on testing including CTA studies and MRI of the brain shows no acute ischemia or bleed. - Stroke risk factor stratification control of hypertension control dyslipidemia/hypertriglyceridemia. Does have elevated hemoglobin A1c I do not see a formal diagnosis of diabetes but this is well likely. Needs to have blood glucose control/monitoring -Suggest discontinuing aspirin 81 mg and starting Aggrenox 25/200 twice a day if no contraindications to this. -He is to follow-up with the [facility] neurology for follow-up as an outpatient. -Continue statin medications for stroke risk factor stratification -Continue hypertensive medications that he uses at home including PEEWEE inhibitor hydrochlorothiazide amlodipine -Cardiology follow-up as an outpatient -Discussed signs and symptoms of stroke with him at length. Thank you for this telehealth consultation. Please do not hesitate to contact me with any questions if these do arise via TT. Trip Mckeon MD Neurology Telehealth Consultation Telehealth Information Telehealth Information: I performed this visit using a real-time telehealth connection between my location and the patients originating location ([facility]). After connecting through interactive tele-video, patient was identified by name and date of and/or wristband check.Patient (or authorized healthcare consumer sales representative) was informed that this was a telemedicine visit and it was being conducted confidentially over secure lines. My office door was closed and no one else was present in the room with me.Patient (or authorized healthcare consumer sales representative) provided consent to proceed with the visit, expressed an understanding of privacy and security of the telemedicine visit, and gave permission to have a hospital consumer sales representative in the room in order to assist with the visit and to conduct portions of the visit, as needed. I informed the patient (or authorized healthcare consumer sales representative) that I reviewed their record and presented the opportunity for them to ask any questions regarding the visit today. The patient agreed to participate. History of Present Illness Reason for Consultation: Telehealth consultation requested for evaluation of strokelike symptoms. Requesting Physician: Dr. Alhaji Ruiz Attending Physician: Alhaji Ruiz MD History of Present Illness Telehealth requested for evaluation of strokelike symptoms. Patient's name and date of were all verified. 69-year-old gentleman with prior history of stroke treated at [facility] did receive rehabilitation after that with no overall residual deficits except for some foot dragging symptoms.. 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 He tells me that he was out hunting deer at 730am on Wednesday when symptoms started consistent with speech being slurred had some left-sided facial droop noted by his son and also left facial tingling. Denies any arm or leg symptoms some. He went to the bathroom but could not make it on time and had a runny diarrhea along with it. He then went home to change and with plans to go back hunting. It was the last day of deer hunting season. His son was called and was noted to have slurring of the speech so EMS was then called. Total event lasted about an hour. His speech resolved back to baseline and left facial droop was noted to have resolved. He was placed on Aggrenox on his stroke admission back in 2009 but then this was discontinued and currently is on aspirin 81 mg daily. He is not clear why the Aggrenox was discontinued. He obtains most of his medical care at the [facility]. He tells me that he was on Aggrenox for about 10 years. He has a history of hypertension and also history of dyslipidemia. He also has history of dysglycemia last hemoglobin A1c done here at this visit is 6.2. Allergies Allergy/AdvReac Type Severity Reaction Status Date / Time No Known Allergies Allergy Verified 06/27/24 11:32 Home Medications Medication Instructions Recorded Confirmed Type hydrochlorothiazide 50 mg tablet 50 mg PO QAM 01/05/20 02/17/25 History hydrocodone 10 mg-acetaminophen 1 tab PO QID PRN Pain 01/05/20 02/17/25 History 325 mg tablet ropinirole 2 mg tablet 2 mg PO TID 06/27/24 02/17/25 History aspirin 81 mg tablet,delayed 81 mg PO QAM #30 tabs 06/28/24 02/17/25 Rx release atorvastatin 40 mg tablet (Lipitor) 40 mg PO HS #30 tabs 06/28/24 02/17/25 Rx hydralazine 50 mg tablet 50 mg PO BID 06/28/24 02/17/25 History pantoprazole 40 mg tablet,delayed 40 mg PO QAM #30 tabs 06/28/24 02/17/25 Rx release amlodipine 10 mg tablet 10 mg PO QAM 01/25/25 02/17/25 History cholecalciferol (vitamin D3) 25 25 mcg PO TID 01/25/25 02/17/25 History mcg (1,000 unit) capsule ferrous sulfate 325 mg (65 mg 325 mg PO Q OTHER DAY 01/25/25 02/17/25 History iron) tablet,delayed release spironolactone 25 mg tablet 25 mg PO QAM 01/25/25 02/17/25 History albuterol sulfate 90 mcg/actuation 2 inh inhalation Q4H PRN shortness 02/03/25 02/17/25 Rx aerosol inhaler of breath or wheezing #6.7 grams carvedilol 25 mg tablet 25 mg PO BID 02/17/25 02/17/25 History fenofibrate nanocrystallized 48 mg 48 mg PO AMHS 02/17/25 02/17/25 History tablet lisinopril 20 mg tablet 20 mg PO QAM 02/17/25 02/17/25 History sertraline 50 mg tablet 50 mg PO HS 02/17/25 02/17/25 History Patient History Medical History AAA (abdominal aortic aneurysm) CVA (cerebral vascular accident) H/O: HTN (hypertension) GERD (gastroesophageal reflux disease) Surgical History No pertinent past surgical history Family History Other Family history non-contributory Social History Smoking Status: Former smoker Tobacco Type: Cigarettes and Smokeless Tobacco (Dip or Chew) Second Hand Exposure: No; Do You Dip or Chew Tobacco: No; Hx Alcohol Use: No Hx Substance Use: No Preferred Language: Argentine Communication Ability: Effective Nurse Auditor Required: No Beliefs That Will Affect Care: None Current Living Situation: Spouse Feels Safe at Home: Yes Safety Concerns: Feels Safe At This Time Assistive Devices: Denture - Upper, Denture - Lower and Glasses Review of Systems Other than above he denies any other complaints. He reports that his speech is back to normal. Denies any headaches. Denies any numbness or tingling. Denies any arm or limb weakness. Physical Exam Knowledge base is adequate. NIH stroke scale for me is 0. His speech is fluent nondysarthric. Comprehension is normal. He is able to repeat sentences he is able to read without any difficulty. His smile was symmetrical I did not notice any obvious facial droop. No abnormal movements were noted such as tremors both postural and intentional. He was able to lift his arms he was examined sitting on his bed. Results & Data Vital Signs (Past 12 Hours) Vital Signs Temp Pulse Pulse Resp BP Pulse Ox O2 Del Method 02/18/25 09:12 51 L 02/18/25 07:32 36.8 C 62 18 146/75 H 96 Room Air 02/18/25 03:31 36.5 C 59 L 18 133/70 96 Room Air 02/17/25 22:48 36.6 C 63 18 135/68 97 Room Air 02/17/25 22:01 56 L Laboratory Results Reviewed on chart. Diagnostic Findings Reviewed CTA study of the head and neck which showed no significant flow- limiting stenosis. Reviewed MRI of the brain which shows no acute intracranial abnormalities. Medications Administered Reviewed. Total Time Total Time Spent Total Time Spent (In Minutes): Total time spent on this telehealth appointment was of 90 minutes. Video consultation Amwell visit was 30 minutes and 60 minutes was spent reviewing medical chart, documentations, imaging, and coordinating care with providers.
[2025-02-18 11:22] VITALS: BP 121/70; PULSE 61; RESP 17; TEMP 98.2; O2SAT 96
[2025-02-18] MEDS ORDERED: STROKE PATIENT DISCHARGE STA (11:48)
--- NOTE | 2025-02-18 11:51 | Discharge Summary ---
Discharge Summary Date of Service February 18, 2025 Principal Dx & Hospital Course #1 = Principal Diagnosis (1) History of cardioembolic cerebrovascular accident (CVA): (2) Acute exacerbation of chronic obstructive pulmonary disease (COPD): (3) Left hand weakness: (4) HTN (hypertension): (5) Acute alteration in mental status: (6) Transient confusion: (7) AAA (abdominal aortic aneurysm): (8) GERD (gastroesophageal reflux disease): Plan #Strokelike symptoms #History of CVA #Altered mental status #Carotid stenosis - Worsening left facial droop, confusion, speech deficits, very consistent with prior episodes. Initial stroke workup and neurology consult in the emergency department thus far unrevealing. Not a candidate for tPA as his symptoms have completely resolved -Admit PCU, initial stroke bundle order set, MRI brain. Continue aspirin. Neurology consult. Previously on Aggrenox but has not been for quite some time. - No indication for tPA as NIH stroke scale had normalized to 0. MRI completed after admission showed no acute intracranial changes. Only chronic previously noted changes. Neurology consultation obtained. Discontinue aspirin, start Aggrenox, follow-up with primary clinic for management of likely prediabetes #Elevated hemoglobin A1c - 6.2, significant dietary indiscretion per patient and family over the short- term. Will advised him to follow-up in the primary clinic for lifestyle/dietary modifications. Potentially to discuss antihyperglycemic's #Abdominal aortic aneurysm #Atherosclerotic disease - Blood pressure management per stroke protocol, continue statin as noted above. No abdominal pain or indication for acute imaging from an aneurysm standpoint #COPD #Recent influenza -At baseline at this time,-continue home inhalers, consider respiratory therapy consult, stress dose given his recent influenza #Hypertension - Continue lisinopril, hold hydralazine, hold hydrochlorothiazide, continue Aldactone, hold Norvasc #GERD - Continue Protonix #Anxiety depression -Continue escitalopram Admission HPI Per Admitting Provider 69-year-old male with a past medical history of COPD, hypertension, NSTEMI and previous CVA who presents to the ER for slurred speech and confusion. He woke up this morning around 6 AM to go hunting. He was normal at that time. He notes he had some trouble with his speech around 730. EMS was called and son presented. Son confirms that he is having some slurred speech and noted that he was confused at the time, he has chronic left facial droop but son throught it was worse. Patient admits to mild headache. No change or loss of vision. No chest pain or shortness of breath. No nausea, vomiting but did have some diarrhea. No dysuria, urgency or frequency. No other exacerbating or remitting factors. EMS was contacted and he was coming to when they arrived. Entire event was 30 to 45 minutes. He has no recall of the time during the event. Very similar to prior stroke symptoms. Recent relevant history, was very ill with influenza A last week. Has been feeling much better over the last several days. No residual or recurrent symptoms. Also of note he was waiting on the hunting truck for his son's he was actually not in the [place] this morning but first had a episode of stool incontinence for which he drove home. When he drove back to the house this morning the event started. Discharge Exam GENERAL: Sitting up in bed, alert, well appearing, well nourished, no distress, non-toxic, able to walk to bathroom unassisted EYE EXAM: normal conjunctiva. PERRL and EOM's intact. OROPHARYNX: no exudate, no erythema, lips, buccal mucosa, and tongue normal and mucous membranes are moist NECK: supple, no nuchal rigidity, no adenopathy, non-tender LUNGS: Clear to auscultation. Normal chest wall mechanics HEART: no murmurs, S1 normal and S2 normal ABDOMEN: abdomen soft, non-tender, normo-active bowel sounds, no masses, no rebound or guarding. SKIN: no rashes and no bruising EXTREMITIES: No pitting edema. NEURO EXAM: Normal sensorium, mild dysarthia is bseline per family, chronic left facial droop back to baseline per sons. no weakness of arms, no weakness of legs. No drift. Finger to nose intact. Gross sensation intact. Babinsky negative. Discharge Plan Discharge Items Patient Disposition: Home - Self-Care Reason For Visit: STROKE LIKE SYMPTOMS Discharge Diagnosis: Stroke Like Symptoms/TIA Condition on Discharge: Good Activity: Resume your previous activity Non-emergency contact: Primary Care Provider and Neurologist Call non-emergency contact if: you have any medication questions, your symptoms worsen, your pain is worsening and you have a fever Follow-up/Referrals: Lazorka,Adan D., PA-C [Primary Care Provider] - Diet: Heart Healthy Addtl Attending Provider Instructions: Stop the Aspirin and Start Aggrenox in its place Your average blood sugar indicates you may have diabetes, please follow-up in the primary clinic in 1-2 weeks for recheck on additional discussion in regards to management options. Pending Studies at Discharge: No Stand-Alone Forms: [facility] Sm[facility] Cess[facility] Medications and DC Order Prescriptions: New aspirin-dipyridamole 25-200 mg capsule, ER multiphase 12 hr 1 cap PO BID Qty: 60 0RF Continued amlodipine 10 mg tablet 10 mg PO QAM cholecalciferol (vitamin D3) 25 mcg (1,000 unit) capsule 25 mcg PO TID ferrous sulfate 325 mg (65 mg iron) tablet,delayed release (DR/EC) 325 mg PO Q OTHER DAY spironolactone 25 mg tablet 25 mg PO QAM hydrochlorothiazide 50 mg tablet 50 mg PO QAM hydrocodone-acetaminophen 10-325 mg tablet 1 tab PO QID PRN (Reason: Pain) lisinopril 20 mg tablet 20 mg PO QAM sertraline 50 mg tablet 50 mg PO HS fenofibrate nanocrystallized 48 mg Tablet 48 mg PO AMHS carvedilol 25 mg Tablet 25 mg PO BID Rx Instructions: must administer with a meal/food ropinirole 2 mg Tablet 2 mg PO TID hydralazine 50 mg tablet 50 mg PO BID pantoprazole 40 mg Tablet,Delayed Release (Dr/Ec) 40 mg PO QAM Qty: 30 2RF atorvastatin [Lipitor] 40 mg tablet 40 mg PO HS Qty: 30 1RF albuterol sulfate 90 mcg/actuation HFA aerosol inhaler 2 inh inhalation Q4H PRN (Reason: shortness of breath or wheezing) Qty: 6.7 0RF Discontinued aspirin 81 mg Tablet,Delayed Release (Dr/Ec) 81 mg PO QAM Qty: 30 3RF Discharge Orders: Discharge Order (Routine); Ordered 02/18/25 Ordered By: Alhaji Blanco/Other Patient Handouts: Prediabetes, 5 Steps for Eating Healthier, TIA Dc Admission Data Admit Date/Time: 02/17/25 14:24 Attending Provider: Alhaji Ruiz Admit Provider: Alhaji Ruiz Primary Care Provider: Adan Siegel Other Providers: Alhaji Ruiz; Trip Mckeon; Greta Brannon; Paulie Sheppard; Brigida Lopez; Cody Shoemaker; Sherry Briones; French Kwan; Leonard Saxena; Lázaro Valentin; Bennie Smiley; Edward Cedeño; Balaji Gordon; Charity Deng; Remy Gonzalez V; Octavio Bennett I; Amrita Muhammad; Ana Merida; Lorrie Jordan; Arcelia Harris; Sinan Anderson Hospital Stay Data Consultations 02/17/25 12:14 ED Decision to Admit Stat 02/17/25 15:53 Consult Neurology Routine Diagnostic Imagining Performed 02/17/25 09:37 CT angio head w con Stat CT angio neck with con Stat CT head/brain wo con Stat 02/17/25 15:53 MR brain wo/w con Routine Pending Results Patient Have Any Pending Studies at Discharge: No Discharge Instructions Given to Patient (Per Discharging Provider) Stop the Aspirin and Start Aggrenox in its place Your average blood sugar indicates you may have diabetes, please follow-up in the primary clinic in 1-2 weeks for recheck on additional discussion in regards to management options. Total Time Total Time Spent Total Time Spent (In Minutes): 35 minutes spent at the bedside discussing results and modifications to care plan with patient. Arrangements for prescription on discharge. Reviewing new medications, discharge planning and follow-up coordination Coding Level of Care Code 01455 INP/OBS DISCH >30 MIN Diagnoses History of cardioembolic cerebrovascular accident (CVA) Z86.73 Acute exacerbation of chronic obstructive pulmonary disease (COPD) J44.1 Left hand weakness R29.898 Hypertension, unspecified type I10 Hypertension type: unspecified Acute alteration in mental status R41.82 Transient confusion R41.0 AAA (abdominal aortic aneurysm) I71.4 GERD (gastroesophageal reflux disease) K21.9
== END 2025-02-18 12:48 | disposition home or self-care (01) | DRG 69 ==
LOC: ED 09:32 → 2S 14:24